=== PATIENT | female | born 1975 | race Hispanic/Latino ===

== ENCOUNTER 2016-04-02 11:05 | Emergency (ER) | payer BC, OTHER ==
--- NOTE | 2016-04-02 11:35 | Emergency Department Report ---
Chief Complaint: Chest Pain Stated Complaint: CHEST/ABD PAINS Time Seen by Provider: 04/02/16 11:30 - HPI History of Present Illness: Patient here complaining of CP that moves from left to right chest started 3 days ago. Feels tigh and 06/22. Reports some SOB. Denies N/V/D. denies fever or chills. She said she went to PCP and they did Urine check and it came back positive for UTI . She is also complaining of generalized stabbing abdominal pain. 09/21. Reports blurred vision. Denies vaginal bleeding - ROS Review of Systems: All systems are negative unless stated in HPI above - Exam Vital Signs: Vital Signs 04/02/16 11:14 Temperature 98.1 F Pulse Rate 126 H Respiratory 17 Rate Blood Pressure 136/85 O2 Sat by Pulse 98 Oximetry Physical Exam: General: This is a 61 yo female well nourished well developed and non toxic in appearance CV: S1S2. Tachycardia @126 Lungs: CTAB. NL work of breathing GI:TTP mid abdomen. Normal BS. MSE screening note: Focused history and physical exam performed. Due to findings the following was ordered:see mdm ED Medical Decision Making - Medical Decision Making MDM:1: seen by provider in triage 2: Protocol implemented for labs and/or Diagnostics 3: Patient to be seen by provider in main ED ED Disposition for MSE Condition: Stable
[2016-04-02 12:22] LABS: Hematocrit 40.1 % (30.3-42.9); Hemoglobin 13.5 gm/dl (10.1-14.3); Mean Corpuscular HGB Conc 34 % (30-34); Mean Corpuscular Hemoglobin 33 pg (28-32); Mean Corpuscular Volume 98 fl (79-97); Platelet Count 209 K/mm3 (140-440); Red Blood Count 4.08 M/mm3 (3.65-5.03); White Blood Count 7.6 K/mm3 (4.5-11.0)
[2016-04-02 12:29] LABS: Basophils % (Auto) 0.2 % (0.0-1.8); Eosinophils % (Auto) 0.4 % (0.0-4.3)
[2016-04-02] MEDS ORDERED: ZOFRAN IV ONE (12:37)
[2016-04-02] MEDS ORDERED: MORPHINE IV ONE (12:37)
[2016-04-02] MEDS ORDERED: NACL 0.9% 1000 ML 1,000 ML IV ONE (12:37)
--- NOTE | 2016-04-02 12:40 | Emergency Department Report ---
HPI - General Chief Complaint: Chest Pain Time Seen by Provider: 04/02/16 11:40 - HPI HPI: This is a 41-year-old female who presents to the emergency department with multiple complaints. The patient says that she's been dealing with nausea and vomiting for the past month. She vomits enough to where she says she vomits up green bile. She says she hasn't been only able to eat about 1-2 meals per week because of this. She reason he started seeing a new primary care doctor and saw the PA for that practice. She has been given a GI referral but has not yet seen them. She was diagnosed with a urinary tract infection this morning but was not started on any antibiotics as she was sent here for further evaluation of the rest of her complaints. Patient says that Wednesday, 3- 4 days ago, the patient began having some sharp abdominal pains. The pains occur in the epigastrium, lower abdomen, and upper pelvis. She denies any fever. Patient also complains of some generalized body aches but also recently has been having some occasional sharp chest pains. When the chest pains occur she also gets some associated shortness of breath. She denies any history of [place] , CVA, PE/DVT. Patient has a past medical history of anxiety and asthma. She tried some Advil PM to help her get some sleep at night without much relief. No recent travel or sick contacts at home. ED Past Medical Hx - Past Medical History Hx Asthma: Yes Additional medical history: pancreatisis - Social History Smoking Status: Never Smoker Substance Use Type: Alcohol - Medications Home Medications: Home Medications Medication Instructions Recorded Confirmed Last Taken Type Acetaminophen/Codeine 1 tab PO Q6H PRN #14 tab 05/21/14 Unknown Rx [Acetaminophen-Codeine #3 TAB] Ciprofloxacin HCl [Cipro] 500 mg PO Q12H #14 tab 05/21/14 Unknown Rx Fluconazole [Diflucan] 150 mg PO ONCE #1 tablet 05/21/14 Unknown Rx Ondansetron [Zofran Odt] 4 mg PO Q4H #14 tab.rapdis 04/02/16 Unknown Rx traMADol [Ultram] 50 mg PO Q6HR PRN #16 tablet 04/02/16 Unknown Rx ED Review of Systems ROS: Stated complaint: CHEST/ABD PAINS Other details as noted in HPI Comment: All other systems reviewed and negative Constitutional: denies: chills, fever Eyes: denies: eye pain, eye discharge, vision change ENT: denies: ear pain, throat pain Respiratory: shortness of breath. denies: cough Cardiovascular: chest pain. denies: palpitations, edema Gastrointestinal: abdominal pain, nausea, vomiting Genitourinary: dysuria. denies: discharge Musculoskeletal: myalgia. denies: joint swelling Skin: denies: rash, lesions Neurological: denies: headache, weakness, paresthesias Physical Exam - Physical Exam Vital Signs: Vital Signs 04/02/16 11:14 Temperature 98.1 F Pulse Rate 126 H Respiratory 17 Rate Blood Pressure 136/85 O2 Sat by Pulse 98 Oximetry Physical Exam: GENERAL: The patient is well-developed well-nourished. HEENT: Normocephalic. Atraumatic. Extraocular motions are intact. Patient has moist mucous membranes. Pupils equal reactive to light bilaterally. NECK: Supple. Trachea is midline. CHEST/LUNGS: Clear to auscultation. There is no respiratory distress noted. HEART/CARDIOVASCULAR: Regular. There is no tachycardia. There is no gallop rub or murmur. ABDOMEN: Abdomen is soft. Patient has some generalized tenderness to palpation of the abdomen. No guarding rebound tenderness. No peritoneal signs. Patient has normal bowel sounds. There is no abdominal distention. SKIN: There is no rash. There is no edema. There is no diaphoresis. NEURO: The patient is awake, alert, and oriented. The patient is cooperative. The patient has no focal neurologic deficits. The patient has normal speech. MUSCULOSKELETAL: There is no tenderness or deformity. There is no limitation range of motion. There is no evidence of acute injury. ED Course Vital Signs 04/02/16 11:14 Temperature 98.1 F Pulse Rate 126 H Respiratory 17 Rate Blood Pressure 136/85 O2 Sat by Pulse 98 Oximetry ED Medical Decision Making - Lab Data Result diagrams: 04/02/16 12:07 04/02/16 12:07 - EKG Data -: EKG Interpreted by Me EKG shows normal: sinus rhythm, axis, intervals, QRS complexes, ST-T waves ( nonspecific T waves) Rate: tachycardia (115 bpm) - EKG Data When compared to previous EKG there are: previous EKG unavailable Interpretation: nonspecific ST-T wave patricia (with tachycardia) - Radiology Data Radiology results: report reviewed, image reviewed interpreted by me: Chest x-ray did not show any acute process. Heart is normal shape and size. No effusions. No pneumothorax. No signs of pneumonia seen. Abdominal x-ray does not show any acute process. Abdominal ultrasound shows a prominent distention of the gallbladder and correlation with nuclear medicine HIDA scan including ejection fraction calculation may be useful. No suggestion of acute cholecystitis or biliary ductal obstruction is seen. There is hepatomegaly and fatty infiltration of the liver. CT of the abdomen and pelvis with IV contrast shows a fatty liver. Dilated gallbladder. Hypodensity left kidney probably cyst. Diverticulosis of the sigmoid colon. - Medical Decision Making 41-year-old female presents with a one-month history of nausea and vomiting anymore recent history of sharp abdominal pains as well as mother body aches including chest pain. Patient's labs and mostly unremarkable including negative troponins 3. Patient has a slight elevation in the direct bilirubin but normal total bilirubin. Normal LFTs and lipase. Abdominal and chest x- rays were done that did not show any acute processes. A CT of the abdomen pelvis was done that shows fatty liver and dilated gallbladder but otherwise no etiology the patient's discomfort and no acute process. No signs of acute cholecystitis. This was confirmed by ultrasound of the right upper quadrant and once again no stones or biliary ductal obstruction. Spoke with gastroenterology who agrees that the patient should follow-up with GI but can get an outpatient HIDA and does not need admission at this time. Patient was given some Zofran and pain medication and is improved. Vital signs stable throughout her ED course. Patient has a primary care doctor and a referral for gastroenterology but she will be given the referral for our chimney mechanic as well. Patient will be given pain control and nausea medication. She will return to the ER with any worsening of her symptoms any acute distress. - Differential Diagnosis cholecystitis, pancreatitis, gastritis, colitis Critical Care Time: No Critical care attestation.: If time is entered above; I have spent that time in minutes in the direct care of this critically ill patient, excluding procedure time. ED Disposition Clinical Impression: Dilated gallbladder, Fatty liver Abdominal pain Qualifiers: Abdominal location: generalized Qualified Code(s): R10.84 - Generalized abdominal pain Nausea and vomiting Qualifiers: Vomiting type: unspecified Vomiting Intractability: non-intractable Qualified Code(s): R11.2 - Nausea with vomiting, unspecified Disposition: DISCHARGED TO HOME OR SELFCARE Is pt being admited?: No Does the pt Need Aspirin: No Condition: Stable Instructions: Biliary Colic (ED), Diverticulosis (ED), Diverticulosis Diet (ED) , Abdominal Pain (ED) Additional Instructions: Please follow-up with your primary care doctor the next few days. Please follow -up with a chimney mechanic as soon as possible as well. Return to the emergency department with any worsening of your symptoms or any acute distress. You've been prescribed a medication that is sedating. Therefore this medication cannot be mixed with alcohol, or taken prior to driving, working, or being responsible for children. Prescriptions: traMADol [Ultram] 50 mg PO Q6HR PRN #16 tablet PRN Reason: Pain Ondansetron [Zofran Odt] 4 mg PO Q4H #14 tab.rapdis Referrals: PRIMARY CARE, [Primary Care Provider] - 3-5 Days MONIE PLASCENCIA MD [Staff Physician] - 3-5 Days Time of Disposition: 19:00
[2016-04-02 12:46] LABS: Anion Gap 18 mmol/L; Blood Urea Nitrogen 8 mg/dL (7-17); Calcium 9.1 mg/dL (8.4-10.2); Carbon Dioxide 26 mmol/L (22-30); Chloride 97.2 mmol/L (98-107); Glucose 106 mg/dL (65-100); Potassium 4.2 mmol/L (3.6-5.0); Sodium 137 mmol/L (137-145)
[2016-04-02 12:47] LABS: Creatine Kinase 25 units/L (30-135); Lipase 33 units/L (13-60)
[2016-04-02 12:50] LABS: Albumin 3.6 g/dL (3.9-5); Albumin/Globulin Ratio 1.2 %; Bilirubin,Direct 0.3 mg/dL (0-0.2); Bilirubin,Indirect 0.3 mg/dL; Bilirubin,Total 0.6 mg/dL (0.1-1.2); Total Protein 6.6 g/dL (6.3-8.2)
[2016-04-02 12:56] LABS: Creatine Kinase MB < 1.0 ng/mL (0.0-4.0)
[2016-04-02 13:40] LABS: Bacteria,Urine 1+ /HPF (Negative); Bilirubin,Urine NEG (Negative); Blood,Urine NEG (Negative); Ketones,Urine NEG (Negative); Leukocyte Esterase,Urine LG (Negative); Mucus,Urine FEW /HPF; Nitrite,Urine NEG (Negative); Protein,Urine <15 mg/dL mg/dL (Negative); Urobilinogen,Urine < 2.0 mg/dL (<2.0)
--- NOTE | 2016-04-02 14:43 | XRay Report ---
Abdominal series: History: Abdominal pain and chest pain. Findings: Normal cardiomediastinal silhouette. Trachea is midline. No consolidation No free intraperitoneal air. No bowel distention or wall thickening. No radiopaque calculus or abnormal calcification. Impression: Essentially negative study.
[2016-04-02] MEDS ORDERED: DILAUDID IV ONE ×2 (14:52→17:35)
--- NOTE | 2016-04-02 16:08 | Cat Scan Report ---
CT scan of abdomen and pelvis with IV contrast: History: Abdominal pain. Findings: Normal lung bases. No pleural pericardial effusion. Fatty liver. Normal spleen pancreas. Distended gallbladder. No calculi. No pericholecystic fluid. Normal adrenals. 1.4 cm circumscribed hypodensity right kidney probably cyst. No hydronephrosis. Normal bladder. No free intraperitoneal fluid. No evidence of adenopathy. Normal aorta. Normal terminal ileum. No evidence of appendicitis or diverticulitis. Diverticulosis sigmoid colon. Impression: Fatty liver. Dilated gallbladder. Hypodensity left kidney probably cysts. Diverticulosis sigmoid colon.
--- NOTE | 2016-04-02 17:30 | Ultrasound Report ---
FINAL REPORT PROCEDURE: US ABDOMEN LIMITED TECHNIQUE: Real-time sonography was performed of the right upper quadrant of the abdomen with image documentation. CPT 03440 HISTORY: abd pain COMPARISON: No prior studies are available for comparison. FINDINGS: Likely fatty infiltration is seen of the liver and liver appears enlarged. Right kidney measures 11.8 cm in length and displays no abnormalities. No evidence of cholelithiasis or acute cholecystitis is seen. Gallbladder is prominently distended. Common bile duct is normal in size. Pancreas is obscured due to bowel gas. IMPRESSION: There is prominent distention of the gallbladder and correlation with nuclear medicine HIDA scan including ejection fraction calculation may be useful. No suggestion of acute cholecystitis or biliary ductal obstruction is seen. There is a hepatomegaly and fatty infiltration of the liver.
[2016-04-02 19:29] VITALS: BP 134/84
== END 2016-04-02 19:32 | disposition home or self-care (01) ==
LOC: ED 11:05
DX: K82.8 Other specified diseases of gallbladder (principal); K76.0 Fatty (change of) liver, not elsewhere classified; R10.84 Generalized abdominal pain; R11.2 Nausea with vomiting, unspecified; J45.909 Unspecified asthma, uncomplicated; K85.90 Acute pancreatitis without necrosis or infection, unspecified
CPT/HCPCS: 36415; 74022; 74177; 76705; 80048; 80074; 81001; 82150; 82550; 82553; 83690; 84484; 84703; 85025; 85379; 93005; 93010; 96361; 96374; 96375; 96376; 99285; J1170; J2270; J2405; J7030; Q9967

== ENCOUNTER 2016-10-29 11:22 | Emergency (ER) | payer BC ==
[2016-10-29 12:05] LABS: Basophils % (Auto) 0.4 % (0.0-1.8); Eosinophils % (Auto) 0.3 % (0.0-4.3); Hematocrit 34.7 % (30.3-42.9); Hemoglobin 11.4 gm/dl (10.1-14.3); Mean Corpuscular HGB Conc 33 % (30-34); Mean Corpuscular Hemoglobin 32 pg (28-32); Mean Corpuscular Volume 98 fl (79-97); Platelet Count 278 K/mm3 (140-440); Red Blood Count 3.55 M/mm3 (3.65-5.03); Red Cell Distribution Width 14.7 % (13.2-15.2)
[2016-10-29 12:23] LABS: Alanine Aminotransferase 20 units/L (7-56); Albumin 3.4 g/dL (3.9-5); Albumin/Globulin Ratio 0.9 %; Alkaline Phosphatase 122 units/L (35-129); Blood Urea Nitrogen 6 mg/dL (7-17); Calcium 8.6 mg/dL (8.4-10.2); Carbon Dioxide 28 mmol/L (22-30); Glucose 103 mg/dL (65-100); Lipase 17 units/L (13-60); Total Protein 7.4 g/dL (6.3-8.2)
[2016-10-29 12:24] LABS: Anion Gap 16 mmol/L; Potassium 3.8 mmol/L (3.6-5.0); Sodium 138 mmol/L (137-145)
[2016-10-29 12:36] LABS: Bacteria,Urine 1+ /HPF (Negative); Bilirubin,Urine SM (Negative); Blood,Urine NEG (Negative); Ketones,Urine NEG (Negative); Leukocyte Esterase,Urine LG (Negative); Mucus,Urine 3+ /HPF; Nitrite,Urine NEG (Negative)
[2016-10-29] MEDS ORDERED: MORPHINE IV ONE ×2 (12:49→15:20)
[2016-10-29] MEDS ORDERED: ROCEPHIN/NS 1 GM/50 ML 1 GM/50 ML BAG IV ONE (12:50)
[2016-10-29] MEDS ORDERED: ZOFRAN IV ONE (12:50)
[2016-10-29] MEDS ORDERED: NACL 0.9% 1000 ML 1,000 ML IV ONE (13:02)
--- NOTE | 2016-10-29 13:02 | Emergency Department Report ---
HPI - General Chief Complaint: Abdominal Pain Time Seen by Provider: 10/29/16 12:24 - HPI HPI: 41-year-old female presents to the emergency department, sent in by the nurse practitioner of her primary care office, with the complaint of abdominal pain, nausea and vomiting. The patient has been having right upper quadrant and right upper flank pain for the past 2-3 days. More recently over the past day or so she has been having lower abdominal discomfort. She has chronic issues with diarrhea, nausea and vomiting but says that this worsened this morning and she is out of the Zofran she usually has to take. Otherwise she has not taken anything for discomfort. She doesn't history of pancreatitis and asthma. Primary care physician is Dr. Herron. No recent travel or sick contacts at home. She does also feel like she might have a urinary tract infection as she has some dysuria but she denies any vaginal discharge or bleeding. ED Past Medical Hx - Past Medical History Previous Medical History?: Yes Hx Asthma: Yes (occasional inhaler use ) Additional medical history: pancreatisis - Social History Smoking Status: Never Smoker Substance Use Type: Alcohol - Medications Home Medications: Home Medications Medication Instructions Recorded Confirmed Last Taken Type Omeprazole 20 mg PO DAILY 04/21/16 04/29/16 04/28/16 History Sertraline 1 tab PO DAILY 04/21/16 04/29/16 04/29/16 History clonazePAM 1 tab PO DAILY 04/21/16 04/29/16 04/29/16 History Ciprofloxacin HCl [Ciprofloxacin 500 mg PO Q12HR #20 tab 10/29/16 Unknown Rx TAB] Fluconazole [Diflucan TAB] 150 mg PO ONCE #1 tablet 10/29/16 Unknown Rx HYDROcodone/APAP 5-325 [Winifred 1 each PO Q6HR PRN #10 tablet 10/29/16 Unknown Rx 5/325] Ondansetron [Zofran Odt] 4 mg PO Q8H PRN #10 tab.rapdis 10/29/16 Unknown Rx traMADol [Ultram] 50 mg PO Q6HR PRN #10 tablet 10/29/16 Unknown Rx ED Review of Systems ROS: Stated complaint: APPENDICITIS Other details as noted in HPI Comment: All other systems reviewed and negative Constitutional: denies: chills, fever Eyes: denies: eye pain, eye discharge, vision change ENT: denies: ear pain, throat pain Respiratory: denies: cough, shortness of breath, wheezing Cardiovascular: denies: chest pain, palpitations Gastrointestinal: abdominal pain, nausea, vomiting Genitourinary: dysuria. denies: discharge Musculoskeletal: denies: back pain, joint swelling, arthralgia Skin: denies: rash, lesions Neurological: denies: headache, weakness, paresthesias Physical Exam - Physical Exam Vital Signs: Vital Signs 10/29/16 10/29/16 11:39 12:17 Temperature 99.5 F Pulse Rate 123 H Respiratory 18 18 Rate Blood Pressure 130/85 O2 Sat by Pulse 100 98 Oximetry Physical Exam: GENERAL: The patient is well-developed well-nourished. ENT: Normocephalic. Atraumatic. Patient has moist mucous membranes. EYES: Extraocular motions are intact. Pupils equal reactive to light bilaterally. No nystagmus. NECK: Supple. Trachea is mid line. CHEST/LUNGS: Clear to auscultation. There is no respiratory distress noted. HEART/CARDIOVASCULAR: Regular rhythm. Mild tachycardia. There is no gallop rub or murmur. ABDOMEN: Abdomen is soft. There is some tenderness palpation to the right upper quadrant as well as the lower quadrants of the abdomen. There is a fullness that is palpable to the right upper flank. Patient has normal bowel sounds. There is no abdominal distention. SKIN: Skin is warm and dry. NEURO: The patient is awake, alert, and oriented. The patient is cooperative. The patient has no sensory or motor deficits. The patient has normal speech and gait. MUSCULOSKELETAL: There is no tenderness or deformity. There is no limitation range of motion. There is no evidence of acute injury. ED Course Vital Signs 10/29/16 10/29/16 11:39 12:17 Temperature 99.5 F Pulse Rate 123 H Respiratory 18 18 Rate Blood Pressure 130/85 O2 Sat by Pulse 100 98 Oximetry ED Medical Decision Making - Lab Data Result diagrams: 10/29/16 11:50 10/29/16 11:50 - Radiology Data Radiology results: report reviewed, image reviewed interpreted by me: X-ray shows nonspecific nonobstructive bowel gas. no acute processes. Abdominal ultrasound shows fatty markedly enlarged liver and prominent distended gallbladder again noted. CT of the abdomen and pelvis with IV contrast shows descending colon diverticulitis. Fatty infiltration of the liver that appears improved from . - Medical Decision Making 41-year-old female presents to the emergency department with some right upper quadrant and lower quadrant abdominal pain as well as nausea and vomiting. Labs show some mild elevation in the total bilirubin and in transaminase. Abdominal x-ray does not show any acute process. She was given some pain medication and nausea medication and there has not been any further vomiting while in the emergency department. Her pain is improved. CT of the abdomen and pelvis shows some descending diverticulitis. Labs show a urinary tract infection. Ultrasound shows some hepatomegaly and distended gallbladder. There is no leukocytosis and there is no fever and patient appears improved. For this reason I believe the diverticulitis can be treated outpatient and the antibiotics for that can also treat the urinary tract infection. While the patient has enlarged gallbladder and liver, there does not appear to be any significant process going on that would require inpatient admission. She was given a referral for gastroenterology and at her request she was given a neurology referral. She was given pain medication and nausea medication. She will return to the ER with any worsening of her symptoms or any acute distress. - Differential Diagnosis diverticulitis, colitis, cholecystitis, cholelithiasis, hepatomegaly, hepat Critical Care Time: No Critical care attestation.: If time is entered above; I have spent that time in minutes in the direct care of this critically ill patient, excluding procedure time. ED Disposition Clinical Impression: Dilated gallbladder, Fatty liver Abdominal pain Qualifiers: Abdominal location: generalized Qualified Code(s): R10.84 - Generalized abdominal pain Diverticulitis large intestine Qualifiers: Diverticulitis bleeding: without bleeding Diverticulitis complication: without perforation or abscess Qualified Code(s): K57.32 - Diverticulitis of large intestine without perforation or abscess without bleeding Disposition: -01 TO HOME OR SELFCARE Is pt being admited?: No Condition: Stable Instructions: Diverticulitis (ED), Urinary Tract Infection in Women (ED), Acute Nausea and Vomiting (ED), Non-Alcoholic Fatty Liver Disease (ED), Diverticulitis Diet (ED), Abdominal Pain (ED) Additional Instructions: I'll put your primary care doctor in the next few days. I have given you a referral for a local machine stemmer, Dr. Zazueta. Return to the emergency Department with any worsening of her symptoms or any acute distress. You have been prescribed a medication that can be sedating. This medication should not be taken prior to driving, working, being responsible for children and should not be mixed with alcohol. Prescriptions: Ciprofloxacin HCl [Ciprofloxacin TAB] 500 mg PO Q12HR #20 tab Fluconazole [Diflucan TAB] 150 mg PO ONCE #1 tablet HYDROcodone/APAP 5-325 [Winifred 5/325] 1 each PO Q6HR PRN #10 tablet PRN Reason: Pain Ondansetron [Zofran Odt] 4 mg PO Q8H PRN #10 tab.rapdis PRN Reason: Nausea traMADol [Ultram] 50 mg PO Q6HR PRN #10 tablet PRN Reason: Pain Referrals: PRIMARY CARE, [Primary Care Provider] - 3-5 Days EULOGIO ZAZUETA MD [Staff Physician] - 3-5 Days JOSIE HUERTA MD [Staff Physician] - 3-5 Days Time of Disposition: 16:54
--- NOTE | 2016-10-29 13:59 | Cat Scan Report ---
CT SCAN OF THE ABDOMEN AND PELVIS WITH CONTRAST: HISTORY: Abdominal pain. TECHNIQUE: Helical CT in 1.25mm intervals following IV contrast. Sagittal and coronal reconstructions. FINDINGS: The liver is normal in size and is without focal defect. Fatty infiltration of the liver has decreased slightly since 04/02/16. No gallstones or biliary dilatation are noted. The spleen and pancreas demonstrate a normal size and attenuation with no evidence of abnormal mass. The kidneys are normal in size and position with no evidence of hydronephrosis or mass. The adrenal glands are normal. There are scattered diverticula in the descending and sigmoid colon. Focal inflammatory changes are identified in the distal descending colons consistent with acute diverticulitis. There is no evidence for abscess or free air. The appendix is not confidently identified. The uterus and adnexa are within normal limits. Essure devices are in place. There is no evidence of peritoneal air or fluid. There is no evidence of any abnormal masses or fluid collections within the pelvis. No adenopathy is identified. The bladder is normal. IMPRESSION: Descending colon diverticulitis. Fatty infiltration of the liver, improved since 04/02/16.
--- NOTE | 2016-10-29 14:17 | XRay Report ---
ABDOMEN RADIOGRAPHS INDICATION: Abdominal pain. COMPARISON: 04/02/2016 FINDINGS: Frontal supine and upright abdominal radiographs again demonstrate overall nonobstructive bowel gas pattern without focal suspicious calcifications, pneumatosis or pneumoperitoneum. An air-containing small bowel loop in the left mid abdomen approximately 2.7 cm caliber, nonspecific. Severe hepatomegaly possible. Mild levoscoliosis apex about L2. Essure devices again noted, 3 in number overlying the sacrum. CONCLUSION: Stable essure devices and possible extensive hepatomegaly without evidence of bowel obstruction, as described. Please correlate. Thank you for the opportunity to participate in this patient's care.
--- NOTE | 2016-10-29 15:51 | Ultrasound Report ---
ULTRASOUND ABDOMEN LIMITED INDICATION: RUQ abdominal pain. COMPARISON: CT from earlier today and 04/02/2016 RUQ ultrasound. FINDINGS: Right upper quadrant sonography limited due to patient's body habitus, though again demonstrates diffusely echogenic liver without definite biliary dilatation. Right hepatic lobe estimated at 25 cm in midclavicular length. No gallstones or pericholecystic fluid. Gallbladder distended to approximately 14.2 cm in length, previously 11 cm in March 2016. Gallbladder wall thickness is 2.3 mm. Common bile duct is 3.8 mm. Imaged pancreas unremarkable, though its head and tail obscured due to bowel gas. Aorta and IVC visualization also limited. Nonhydronephrotic right kidney, approximately 13 x 5.8 x 5.7 cm with cortical thickness of 1.5 cm. CONCLUSION: Fatty, markedly enlarged liver and prominent/distended gallbladder again noted, as described. Please correlate. Thank you for the opportunity to participate in this patient's care.
[2016-10-29 16:54] VITALS: BP 106/68
== END 2016-10-29 17:17 | disposition home or self-care (01) ==
LOC: ED 11:22
DX: K82.8 Other specified diseases of gallbladder (principal); K76.0 Fatty (change of) liver, not elsewhere classified; K57.32 Diverticulitis of large intestine without perforation or abscess without bleeding; J45.909 Unspecified asthma, uncomplicated
CPT/HCPCS: 36415; 74020; 74177; 76705; 80053; 81001; 83690; 84703; 85025; 96365; 96375; 96376; 99284; J0696; J2270; J2405; J7030; Q9967

== ENCOUNTER 2017-05-13 03:41 | Emergency (ER) | payer BC ==
[2017-05-13] MEDS ORDERED: NACL 0.9% 1000 ML 1,000 ML IV ONE (04:41)
[2017-05-13] MEDS ORDERED: MORPHINE IV ONE (04:41)
[2017-05-13] MEDS ORDERED: ZOFRAN IV ONE (04:41)
--- NOTE | 2017-05-13 04:51 | Emergency Department Report ---
ED Abdominal Pain HPI - General Chief Complaint: Abdominal Pain Stated Complaint: ABD PAIN Time Seen by Provider: 05/13/17 04:41 Source: patient Mode of arrival: Ambulatory Limitations: No Limitations - History of Present Illness Initial Comments: Patient is 42 years old female history of asthma and diverticulitis. Patient presented to the ER with right lower quadrant and suprapubic pain started yesterday with bloody diarrhea. Pain associated his nausea but no vomiting. Patient denied any fever. No urinary frequency or dysuria MD Complaint: abdominal pain -: Last night Location: RLQ, suprapubic Radiation: none Migration to: no migration Severity scale (0 -10): 9 Quality: sharp, dull Consistency: constant Improves With: nothing Worsens With: nothing Associated Symptoms: nausea, hematochezia. denies: vomiting, diarrhea, fever - Related Data Home Medications Medication Instructions Recorded Confirmed Last Taken Omeprazole 20 mg PO DAILY 04/21/16 04/29/16 04/28/16 Sertraline 1 tab PO DAILY 04/21/16 04/29/16 04/29/16 clonazePAM 1 tab PO DAILY 04/21/16 04/29/16 04/29/16 Previous Rx's Medication Instructions Recorded Last Taken Type Ciprofloxacin HCl [Ciprofloxacin 500 mg PO Q12HR #20 tab 10/29/16 Unknown Rx TAB] Fluconazole [Diflucan TAB] 150 mg PO ONCE #1 tablet 10/29/16 Unknown Rx HYDROcodone/APAP 5-325 [[place] 1 each PO Q6HR PRN #10 tablet 10/29/16 Unknown Rx 5/325] Ondansetron [Zofran Odt] 4 mg PO Q8H PRN #10 tab.rapdis 10/29/16 Unknown Rx traMADol [Ultram] 50 mg PO Q6HR PRN #10 tablet 10/29/16 Unknown Rx HYDROcodone/APAP 5-325 [[place] 1 - 2 each PO Q6HR PRN #10 tablet 05/13/17 Unknown Rx 5/325] Allergies Allergy/AdvReac Type Severity Reaction Status Date / Time No Known Allergies Allergy Verified 10/29/16 11:39 ED Review of Systems ROS: Stated complaint: ABD PAIN Other details as noted in HPI Comment: All other systems reviewed and negative Constitutional: denies: chills, fever Respiratory: denies: cough, orthopnea, shortness of breath, SOB with exertion Cardiovascular: denies: chest pain, palpitations, dyspnea on exertion Gastrointestinal: abdominal pain, nausea, diarrhea, hematochezia. denies: vomiting, constipation, hematemesis, melena Genitourinary: denies: urgency, dysuria, frequency, hematuria Neurological: denies: headache, weakness, numbness, paresthesias ED Past Medical Hx - Past Medical History Previous Medical History?: Yes Hx Asthma: Yes (occasional inhaler use ) Additional medical history: pancreatisis - Surgical History Past Surgical History?: No - Social History Smoking Status: Never Smoker Substance Use Type: None - Medications Home Medications: Home Medications Medication Instructions Recorded Confirmed Last Taken Type Omeprazole 20 mg PO DAILY 04/21/16 04/29/16 04/28/16 History Sertraline 1 tab PO DAILY 04/21/16 04/29/16 04/29/16 History clonazePAM 1 tab PO DAILY 04/21/16 04/29/16 04/29/16 History Ciprofloxacin HCl [Ciprofloxacin 500 mg PO Q12HR #20 tab 10/29/16 Unknown Rx TAB] Fluconazole [Diflucan TAB] 150 mg PO ONCE #1 tablet 10/29/16 Unknown Rx HYDROcodone/APAP 5-325 [[place] 1 each PO Q6HR PRN #10 tablet 10/29/16 Unknown Rx 5/325] Ondansetron [Zofran Odt] 4 mg PO Q8H PRN #10 tab.rapdis 10/29/16 Unknown Rx traMADol [Ultram] 50 mg PO Q6HR PRN #10 tablet 10/29/16 Unknown Rx HYDROcodone/APAP 5-325 [[place] 1 - 2 each PO Q6HR PRN #10 tablet 05/13/17 Unknown Rx 5/325] ED Physical Exam - General Limitations: No Limitations General appearance: alert, in no apparent distress - Head Head exam: Present: atraumatic, normocephalic - Eye Eye exam: Present: normal appearance, PERRL - ENT ENT exam: Present: normal exam, normal orophraynx, mucous membranes dry - Neck Neck exam: Present: normal inspection, full ROM. Absent: tenderness, meningismus - Respiratory Respiratory exam: Present: normal lung sounds bilaterally. Absent: respiratory distress, wheezes, rales, rhonchi, stridor, chest wall tenderness, accessory muscle use, decreased breath sounds, prolonged expiratory - Cardiovascular Cardiovascular Exam: Present: tachycardia - GI/Abdominal GI/Abdominal exam: Present: soft, tenderness. Absent: distended, guarding, rebound, rigid, normal bowel sounds, organomegaly, mass, bruit, pulsatile mass, hernia - Extremities Exam Extremities exam: Present: normal inspection, full ROM, normal capillary refill - Back Exam Back exam: Present: normal inspection, full ROM. Absent: tenderness, CVA tenderness (R), CVA tenderness (L) - Neurological Exam Neurological exam: Present: alert, oriented X3, CN II-XII intact, normal gait - Skin Skin exam: Present: warm, intact, normal color. Absent: cyanosis, diaphoretic ED Course Vital Signs 05/13/17 05/13/17 05/13/17 03:48 04:10 05:00 Temperature 98.2 F 99 F Pulse Rate 114 H 108 H Respiratory 18 20 Rate Blood Pressure 114/69 122/76 Blood Pressure 125/79 [Left] O2 Sat by Pulse 95 97 98 Oximetry 05/13/17 07:16 Temperature 98.6 F Pulse Rate 96 H Respiratory 18 Rate Blood Pressure Blood Pressure 114/67 [Left] O2 Sat by Pulse 99 Oximetry - Reevaluation(s) Reevaluation #1: 05/13/17 06:05 PATIENT CARE TRANSFER TO DR AU PENDING CT ABDOMEN AND PELVIS. ED Medical Decision Making - Lab Data Result diagrams: 05/13/17 04:58 05/13/17 04:58 Critical care attestation.: If time is entered above; I have spent that time in minutes in the direct care of this critically ill patient, excluding procedure time. ED Disposition Clinical Impression: Abdominal pain Disposition: - TO HOME OR SELFCARE Is pt being admited?: No Condition: Stable Instructions: Abdominal Pain (ED) Prescriptions: HYDROcodone/APAP 5-325 [[place] 5/325] 1 - 2 each PO Q6HR PRN #10 tablet PRN Reason: Pain Referrals: JUAN LUIS MEADE MD [Staff Physician] - [facility] (It is important that you follow -up with your mathematician research for further evaluation of your liver. ) PRIMARY CARE, [Referring] - 3-5 Days
[2017-05-13 05:11] LABS: Basophils # (Auto) 0.1 K/mm3 (0.0-0.1); Basophils % (Auto) 0.6 % (0.0-1.8); Eosinophils # (Auto) 0.2 K/mm3 (0.0-0.4); Eosinophils % (Auto) 1.8 % (0.0-4.3); Hematocrit 34.2 % (30.3-42.9); Hemoglobin 11.6 gm/dl (10.1-14.3); Lymphocytes # (Auto) 1.5 K/mm3 (1.2-5.4); Lymphocytes % (Auto) 16.1 % (13.4-35.0); Mean Corpuscular HGB Conc 34 % (30-34); Mean Corpuscular Hemoglobin 35 pg (28-32); Mean Corpuscular Volume 103 fl (79-97); Monocytes # (Auto) 0.6 K/mm3 (0.0-0.8); Monocytes % (Auto) 6.7 % (0.0-7.3); Platelet Count 221 K/mm3 (140-440); Red Blood Count 3.33 M/mm3 (3.65-5.03); Red Cell Distribution Width 17.2 % (13.2-15.2)
[2017-05-13 05:21] LABS: INR 1.26 (0.87-1.13)
[2017-05-13 06:13] LABS: Alanine Aminotransferase 33 units/L (7-56); Albumin 3.2 g/dL (3.9-5); BUN/Creatinine Ratio 5; Blood Urea Nitrogen 2 mg/dL (7-17); Calcium 8.6 mg/dL (8.4-10.2); Hemolysis Index 24
[2017-05-13] MEDS ORDERED: NACL ONE (06:13)
[2017-05-13 06:39] LABS: Bilirubin,Urine NEG (Negative); Blood,Urine SM (Negative); Color,Urine Yellow (Yellow); Mucus,Urine FEW /HPF; Protein,Urine <15 mg/dL mg/dL (Negative)
[2017-05-13 07:17] VITALS: BP 114/67
--- NOTE | 2017-05-13 07:18 | Cat Scan Report ---
FINAL REPORT EXAM: CT ABDOMEN PELVIS W CON HISTORY: abdominal pain TECHNIQUE: Routine axial imaging was obtained of the abdomen and pelvis following the intravenous injection of 100 cc of Omnipaque 300. Sagittal and coronal reconstructions were reviewed. Comparison is made to the study of 10/29/2016. FINDINGS: The lung bases do not show any infiltrates or effusions. The liver is enlarged and reveals multiple low-attenuation areas in both hepatic lobes, particularly in the caudate lobe. Overall findings are compatible with hepatic steatosis. This has improved somewhat since prior study. Because of the nodule distribution occult lesions still cannot be excluded. The gallbladder is distended. Stones are not seen. There are no secondary signs of acute cholecystitis. The pancreas, spleen, and adrenal glands appear normal. The kidneys enhance normally. The vascular structures enhance normally also. There is no evidence of free fluid or adenopathy. The bowel loops are normal in caliber. There are multiple uncomplicated diverticula within the colon. The appendix is not seen with certainty. The uterus and bladder appear normal. There are bilateral Essure devices in the adnexa. The skeletal structures do not show any acute changes. IMPRESSION: Hepatomegaly with changes liver compatible with hepatic steatosis which has shown slight improvement since previous study. Given the nodular appearance of the distribution of the fatty deposits, MRI of liver is recommended to definite exclude occult lesions such as metastases. Distended gallbladder. No secondary signs of acute cholecystitis. Uncomplicated colonic diverticulosis.
[2017-05-13] MEDS ORDERED: SUBLIMAZE IV ONE ×2 (08:32→09:00)
--- NOTE | 2017-05-13 08:36 | Ultrasound Report ---
ULTRASOUND ABDOMEN LIMITED INDICATION: Abdominal pain. COMPARISON: CT from earlier today and October 2016 imaging. FINDINGS: Right upper quadrant sonography again demonstrates diffuse increased hepatic echogenicity, though patchy at places, similar to the CT appearance. Right hepatic lobe appears enlarged, estimated at 27 cm craniocaudal on accompanying CT. No biliary dilatation. Gallbladder distended to approximately 14.3 cm in length. Slight gallbladder sludge versus technical artifact. No gallstones or pericholecystic fluid. Gallbladder wall thickness is 2.5 mm. Common bile duct is 4.2 mm. Imaged pancreas, nonaneurysmal abdominal aorta and IVC appear within normal limits. Nonhydronephrotic, 13.1 x 5.1 x 5.7 cm right kidney with cortical thickness of 1 cm. CONCLUSION: 1. Diffusely echogenic, heterogeneous, markedly enlarged liver may again represent patchy fatty hepatic infiltration, felt improving/resolving since prior CT exams. Please also correlate clinically as also to exclude other possible infiltrative processes. 2. Distended gallbladder without sonographic evidence of acute cholecystitis. Thank you for the opportunity to participate in this patient's care.
== END 2017-05-13 09:17 | disposition home or self-care (01) ==
LOC: EEVIPCON 03:41 → ED 03:41
DX: R10.31 Right lower quadrant pain (principal)
CPT/HCPCS: 36415; 74177; 76705; 80053; 81001; 83690; 84703; 85025; 85610; 96361; 96374; 96375; 99284; J2270; J2405; J3010; J7030; Q9967

== ENCOUNTER 2017-06-02 10:57 | Day surgery (SDC) | payer BC ==
[2017-06-02] MEDS ORDERED: NACL 0.9% 1000 ML 1,000 ML IV SCH (12:00)
[2017-06-02] MEDS ORDERED: WATER FOR IRRIG STERILE IR ONE (12:49)
[2017-06-02] MEDS ORDERED: DIPRIVAN 10 MG/ML IV ONE ×2 (13:13)
--- NOTE | 2017-06-02 13:23 | Anesthesia Day of Surgery ---
Anesthesia Day of Surgery - Day of Surgery Patient Examined: Yes Patient H&P Reviewed: Yes Patient is NPO: Yes
--- NOTE | 2017-06-02 13:23 | Anesthesia Consultation ---
Anesthesia Consult and Med Hx Date of service: 06/02/17 - Airway Anesthetic Teeth Evaluation: Good ROM Head & Neck: Adequate Mental/Hyoid Distance: Adequate Mallampati Class: Class III Intubation Access Assessment: Possibly Difficult - Pulmonary Exam CTA: Yes - Cardiac Exam Cardiac Exam: RRR - Pre-Operative Health Status ASA Pre-Surgery Classification: ASA2 Proposed Anesthetic Plan: MAC - Pre-Anesthesia Comment Pre-Anesthesia Comments: neuropathy - Pulmonary Hx Asthma: Yes - Gastrointestinal Hx Gastroesophageal Reflux Disease: Yes (well controlled ) - Other Systems Hx Alcohol Use: Yes (occasional )
--- NOTE | 2017-06-02 13:25 | History and Physical Report ---
History of Present Illness Date of examination: 06/02/17 Date of admission: 06/02/2017 Chief complaint: Abdominal Pain History of present illness: The patient is a 42 yo female being worked up for abdominal pain and diarrhea by Dr Stewart (see H/P from 02/2017 scanned in the [facility]). She has already had a colonoscopy, but not an EGD in over 2 years. There is no prior hx of PUD, severe dysphagia, hematemesis, or abnormal loss of weight. Past History Past Medical History: other (obesity, colon polyp) Past Surgical History: denies: bowel surgery Social history: . denies: alcohol abuse, prescription drug abuse Family history: denies: no significant family history Medications and Allergies Allergies Allergy/AdvReac Type Severity Reaction Status Date / Time No Known Allergies Allergy Verified 10/29/16 11:39 Home Medications Medication Instructions Recorded Confirmed Last Taken Type Lyrica 100 mg PO TID 06/02/17 06/02/17 06/01/17 History Active Meds: Active Medications Sodium Chloride (Nacl 0.9% 1000 Ml) 1,000 mls @ 50 mls/hr IV DIRECT SUE Last Admin: 06/02/17 11:58 Dose: 50 mls/hr I have reviewed and reconciled medications. Review of Systems All systems: negative (as noted in the HPI) Exam - Constitutional Vitals: Temp Pulse Resp BP Pulse Ox 98.1 F 115 H 18 142/92 98 06/02/17 11:39 06/02/17 11:39 06/02/17 11:39 06/02/17 11:39 06/02/17 11:39 General appearance: Present: no acute distress - EENT Eyes: Present: PERRL, EOM intact ENT: hearing intact, clear oral mucosa - Respiratory Respiratory effort: normal Respiratory: bilateral: CTA - Cardiovascular Rhythm: regular Heart Sounds: Present: S1 & S2 - Abdominal General gastrointestinal: Present: soft, non-tender, non-distended Assessment and Plan - Patient Problems (1) Generalized abdominal pain Current Visit: Yes Status: Acute Plan to address problem: - Upper endoscopy as part of workup of abdominal pain, history of N/V, and diarrhea.
--- NOTE | 2017-06-02 13:37 | Post Operative Note ---
Pre-op diagnosis: Abdominal Pain Post-op diagnosis: other (Gastritis, small hh, ?GV) Findings: 1. Normal duodenum, biopsy for sprue 2. Mild gastritis, biopsy of antrum 3. Prominant vessels in fundus (?gastric varices) 4. Small HH 5. Normal esophagus Procedure: EGD with cold biopsy Anesthesia: MAC Surgeon: BENJAMIN CASTILLO Estimated blood loss: minimal Pathology: list (1. Random duodenum/rule out sprue. 2. Gastric antrum, gastritis.) Specimen disposition: to lab Condition: stable Disposition: same day (Recs: 1. Resume normal diet and activities, except no driving today. 2. F/U with Dr Stewart in 2-4 weeks (call for appointment). 3. F/ U pathology in clinic.)
--- NOTE | 2017-06-02 13:43 | Short Stay Summary ---
Short Stay Documentation Date of service: 06/02/17 Narrative H&P: The patient underwent an uncomplicated outpatient upper endoscopy for abdominal pain and a history of N/V/diarrhea. She did well with normal vital signs. She was discharged 30 minutes after the procedure in good condition. - History Principal diagnosis: Generalized abdominal pain H&P: obtained from office Past Medical History: other (obesity, colon polyp) Past Surgical History: no bowel surgery Social history: , no alcohol abuse, no prescription drug abuse - Allergies and Medications Current Medications: Allergies No Known Allergies Allergy (Verified 10/29/16 11:39) Home Medications Medication Instructions Recorded Confirmed Last Taken Type Lyrica 100 mg PO TID 06/02/17 06/02/17 06/01/17 History Active Medications Sodium Chloride (Nacl 0.9% 1000 Ml) 1,000 mls @ 50 mls/hr IV DIRECT SUE Last Admin: 06/02/17 11:58 Dose: 50 mls/hr - Physical exam General appearance: no acute distress, obese Lungs: Clear to auscultation Heart: Regular rate, Normal S1, Normal S2 Gastrointestinal: normal, normoactive bowel sounds - Brief post op/procedure progress note Date of procedure: 06/02/17 Pre-op diagnosis: Generalized abdominal pain Post-op diagnosis: other (gastritis, HH, possible gastric varices) Procedure: EGD with cold biopsy Anesthesia: MAC Findings: 1. As per the dictated report (gastritis, HH, possible varices) Surgeon: BENJAMIN CASTILLO Estimated blood loss: minimal Pathology: list (1. Random duodenum. 2. Gastric antrum.) Specimen disposition: to lab Condition: stable - Hospital course Hospital course: The patient was d/c 30 minutes after the EGD per endoscopy protocol. No adverse events during or after the procedure noted. - Disposition Condition at discharge: Stable Disposition: DC-01 TO HOME OR SELFCARE - Discharge Diagnoses (1) Generalized abdominal pain Status: Chronic Short Stay Discharge Plan Activity: no restrictions (Except no operating a vehicle/heavy machinery today) Weight Bearing Status: Full Weight Bearing Diet: regular Follow up with: JUAN LUIS MEADE MD [Staff Physician] - 6 Weeks HOANG DIAMOND MD [Primary Care Provider] - 6 Weeks
[2017-06-02 13:59] VITALS: BP 134/89
--- NOTE | 2017-06-02 14:55 | Post Anesthesia Evaluation ---
- Post Anesthesia Evaluation Patient Participated: Yes Airway Patent: Yes Stable Respiratory Function: Yes Nausea/Vomiting: No Temp > 96.8F: Yes Pain Manageable: Yes Adequeate Hydration: Yes Anesthesia Complications: No
--- NOTE | 2017-06-02 15:18 | Operative Report ---
PROCEDURE PERFORMED: Esophagogastroduodenoscopy with cold biopsy. PREOPERATIVE DIAGNOSES: Generalized abdominal pain and a history of nausea and vomiting. POSTOPERATIVE DIAGNOSES: Gastritis, possible gastric varices, hiatal hernia. ENDOSCOPIST: Delonte Solitario MD INSTRUMENT: [employer] video endoscope. MEDICATIONS: MAC anesthesia by [facility]. COMPLICATIONS: No apparent complications. ESTIMATED BLOOD LOSS: Minimal. SPECIMENS: 1. Random duodenum. 2. Gastric antrum. IMPLANTS: None. ASSISTANTS: None. CONDITION AT COMPLETION: Stable. TECHNIQUE: The patient was informed of the risks and benefits of the procedure. She signed the informed consent to proceed. She was placed in left lateral decubitus position. The above sedative medications were given. Her vital signs remained stable throughout the procedure. The instrument was advanced from the mouth to the second portion of the duodenum under direct visualization. At that point, the bowel was insufflated and the endoscope was slowly withdrawn. FINDINGS: 1. Normal duodenum, but biopsy taken for sprue given the patient's chronic diarrhea and abdominal pain. 2. Mild gastritis characterized by erythema and erosions in the antrum of the stomach, status post cold biopsy. 3. There was a prominent cluster of vessels in the fundus, which could suggest mild gastric varices, but there was no evidence of esophageal varices and the patient has no history of splenic or pancreatic injury. 4. Small hiatal hernia. 5. Normal esophagus. RECOMMENDATIONS: 1. Resume normal diet and activities except for no driving today. 2. Follow up in clinic with Dr. Stewart in 2-4 weeks, the patient to call for an appointment. 3. Follow up pathology in the clinic. JOB# [id number] ALEXX/NTS
== END 2017-06-02 10:58 | disposition home or self-care (01) ==
LOC: GIO 10:57
PROVIDERS: ATTEND Internal Medicine Gastroenterology
DX: K29.50 Unspecified chronic gastritis without bleeding (principal); K44.9 Diaphragmatic hernia without obstruction or gangrene; K21.9 Gastro-esophageal reflux disease without esophagitis; J45.909 Unspecified asthma, uncomplicated
CPT/HCPCS: 43239; 81025; 88305; 88342; J2704; J7030

== ENCOUNTER 2017-07-12 08:37 | Emergency (ER) | payer BC ==
[2017-07-12] MEDS ORDERED: ALUM-MAG HYDROX-SIMETH 200-200-20MG/5ML PO ONE (09:20)
[2017-07-12] MEDS ORDERED: PEPCID PO ONE (09:20)
[2017-07-12] MEDS ORDERED: ZOFRAN ODT PO ONE (09:20)
[2017-07-12] MEDS ORDERED: BENTYL PO NR (09:20)
[2017-07-12] MEDS ORDERED: CARAFATE PO ONE (09:20)
--- NOTE | 2017-07-12 09:21 | Emergency Department Report ---
ED GI Bleed HPI - General Chief complaint: Abdominal Pain Stated complaint: ABDOMINAL PAIN Time Seen by Provider: 07/12/17 09:04 Source: patient, RN notes reviewed, old records reviewed Mode of arrival: Ambulatory Limitations: No Limitations - History of Present Illness Initial comments: This is a 42-year-old female who is previously known to this provider. Past medical history includes alcohol abuse, multiple recent endoscopies demonstrating portal gastropathy, gastric varices, recently had MRI for her abdomen as per recommendation of gastroenterology. Patient presents to the ER with a complaint of right-sided abdominal pain. It has been present for 8 months. It is sharp and achy. It does not radiate anywhere. It decreases with morphine. Patient denies headache, neck pain, chest pain, homicidality, suicidality. She does report some dysuria. She also has a complaint of intermittent rectal bleeding. She thinks that she may have Crohn's disease. Her symptoms do not have exacerbating or relieving factors. MD complaint: blood on toilet paper -: Gradual Location: RUQ, R flank Radiation: none Quality: cramping Consistency: intermittent Improves with: other Worsens with: other Context: history of GI bleed, liver disease, alcohol abuse, known esophageal varices Associated Symptoms: abdominal pain. denies: nausea, vomiting, epistaxis, fever /chills, headaches, loss of appetite, malaise, easy bruising, rash, shortness of breath, syncope, weakness - Related Data Previous Rx's Medication Instructions Recorded Last Taken Type ALPRAZolam [Xanax TAB] 0.5 mg PO TID PRN #20 tablet 07/08/17 Unknown Rx Multivitamin Tab W-MINERAL 1 each PO QDAY #30 tablet 07/08/17 Unknown Rx [Multiple Vitamin/Mineral (Theragran M)] Pantoprazole [Protonix TAB] 40 mg PO QDAY #30 tablet 07/08/17 Unknown Rx Pregabalin [Lyrica] 25 mg PO TID #20 capsule 07/08/17 Unknown Rx Pregabalin [Lyrica] 75 mg PO TID #20 capsule 07/08/17 Unknown Rx QUEtiapine [SEROquel] 25 mg PO DAILY #30 07/08/17 Unknown Rx Zolpidem [Ambien] 5 mg PO QHS PRN #10 tablet 07/08/17 Unknown Rx Allergies Allergy/AdvReac Type Severity Reaction Status Date / Time No Known Allergies Allergy Verified 10/29/16 11:39 ED Review of Systems ROS: Stated complaint: ABDOMINAL PAIN Other details as noted in HPI Comment: All other systems reviewed and negative ED Past Medical Hx - Past Medical History Hx Asthma: Yes Hx HIV: No Additional medical history: pancreatisis. neuropathy. diverticulits. anemia. chrons - Surgical History Past Surgical History?: No - Social History Smoking Status: Former Smoker Substance Use Type: None - Medications Home Medications: Home Medications Medication Instructions Recorded Confirmed Last Taken Type ALPRAZolam [Xanax TAB] 0.5 mg PO TID PRN #20 tablet 07/08/17 Unknown Rx Multivitamin Tab W-MINERAL 1 each PO QDAY #30 tablet 07/08/17 Unknown Rx [Multiple Vitamin/Mineral (Theragran M)] Pantoprazole [Protonix TAB] 40 mg PO QDAY #30 tablet 07/08/17 Unknown Rx Pregabalin [Lyrica] 25 mg PO TID #20 capsule 07/08/17 Unknown Rx Pregabalin [Lyrica] 75 mg PO TID #20 capsule 07/08/17 Unknown Rx QUEtiapine [SEROquel] 25 mg PO DAILY #30 18 07/05/17 Unknown Rx Zolpidem [Ambien] 5 mg PO QHS PRN #10 tablet 07/08/17 Unknown Rx ED Physical Exam - General Limitations: No Limitations General appearance: alert, in no apparent distress - Head Head exam: Present: atraumatic, normocephalic - Eye Eye exam: Present: normal appearance, EOMI. Absent: nystagmus - ENT ENT exam: Present: normal exam, normal orophraynx, mucous membranes moist, normal external ear exam - Neck Neck exam: Present: normal inspection - Respiratory Respiratory exam: Present: normal lung sounds bilaterally. Absent: respiratory distress - Cardiovascular Cardiovascular Exam: Present: regular rate, normal rhythm, normal heart sounds. Absent: systolic murmur, diastolic murmur, rubs, gallop - GI/Abdominal GI/Abdominal exam: Present: soft, normal bowel sounds. Absent: distended, tenderness, guarding, rebound, rigid, pulsatile mass - Rectal Rectal exam: Present: normal inspection, normal rectal tone, heme (+) stool, bloody stool, other (escorted by a nurse GLENNEY,FATMATA) - Extremities Exam Extremities exam: Present: normal inspection, full ROM, normal capillary refill. Absent: tenderness, pedal edema, joint swelling, calf tenderness - Back Exam Back exam: Present: normal inspection, full ROM. Absent: tenderness, CVA tenderness (R), paraspinal tenderness, vertebral tenderness - Neurological Exam Neurological exam: Present: alert, oriented X3, CN II-XII intact, normal gait, other (Extraocular movements intact. Tongue midline. No facial droop. Facial sensation intact to light touch in the V1, V2, V3 distribution bilaterally. 5 and 5 strength in 4 extremities.. Sensation is intact to light touch in 4 extremities.). Absent: motor sensory deficit - Psychiatric Psychiatric exam: Present: normal affect, normal mood - Skin Skin exam: Present: warm, dry, intact, normal color. Absent: rash ED Course Vital Signs 07/12/17 07/12/17 08:49 10:16 Temperature 98.6 F Pulse Rate 108 H 99 H Respiratory 18 18 Rate Blood Pressure 128/81 Blood Pressure 123/78 [Left] O2 Sat by Pulse 98 99 Oximetry - Reevaluation(s) Reevaluation #1: 07/12/17 11:35 The patient was also recently discharged with multiple prescriptions from the medicine service 4 days ago from this hospital. Reevaluation #2: 07/12/17 11:36 Patient is requesting morphine for pain. There is no abdominal tenderness. Her tachycardia has resolved. Based on her history and physical and current presentation, she does not require narcotic therapy. Urinalysis is not consistent with urinary tract infection. ED Medical Decision Making - Lab Data Result diagrams: 07/12/17 09:02 07/12/17 09:02 Vital Signs 07/12/17 07/12/17 08:49 10:16 Temperature 98.6 F Pulse Rate 108 H 99 H Respiratory 18 18 Rate Blood Pressure 128/81 Blood Pressure 123/78 [Left] O2 Sat by Pulse 98 99 Oximetry Labs 07/12/17 07/12/17 07/12/17 09:02 09:02 09:02 WBC 7.9 RBC 3.04 L Hgb 9.3 L Hct 29.0 L MCV 95 MCH 31 MCHC 32 RDW 19.4 H Plt Count 183 Lymph % (Auto) 16.2 Rice % (Auto) 7.3 Eos % (Auto) 1.1 Baso % (Auto) 0.6 Lymph # 1.3 Rice # 0.6 Eos # 0.1 Baso # 0.0 Seg Neutrophils % 74.8 H Seg Neutrophils # 5.9 PT 17.0 H INR 1.31 H APTT 43.2 H Sodium 136 L Chloride 97.4 L Carbon Dioxide 25 BUN 3 L Creatinine 0.3 L Estimated GFR > 60 BUN/Creatinine Ratio 10 Glucose 100 Calcium 8.6 Magnesium Total Bilirubin 2.60 H Total Protein 7.6 Albumin 3.1 L Albumin/Globulin Ratio 0.7 Lipase 27 Urine Color Urine Turbidity Urine pH Ur Specific [place] Urine Protein Urine Glucose (UA) Urine Ketones Urine Blood Urine Nitrite Urine Bilirubin Urine Urobilinogen Ur Leukocyte Esterase Urine WBC (Auto) Urine RBC (Auto) U Epithel Cells (Auto) Urine Mucus Urine HCG, Qual 07/12/17 07/12/17 09:02 10:16 WBC RBC Hgb Hct MCV MCH MCHC RDW Plt Count Lymph % (Auto) Rice % (Auto) Eos % (Auto) Baso % (Auto) Lymph # Rice # Eos # Baso # Seg Neutrophils % Seg Neutrophils # PT INR APTT Sodium Chloride Carbon Dioxide BUN Creatinine Estimated GFR BUN/Creatinine Ratio Glucose Calcium Magnesium 1.80 Total Bilirubin Total Protein Albumin Albumin/Globulin Ratio Lipase Urine Color Nasra Urine Turbidity Clear Urine pH 7.0 Ur Specific [place] 1.015 Urine Protein 30 mg/dl Urine Glucose (UA) Neg Urine Ketones Neg Urine Blood Neg Urine Nitrite Neg Urine Bilirubin Neg Urine Urobilinogen 4.0 Ur Leukocyte Esterase Tr Urine WBC (Auto) 3.0 Urine RBC (Auto) 2.0 U Epithel Cells (Auto) 13.0 Urine Mucus 2+ Urine HCG, Qual Negative - Radiology Data Radiology results: report reviewed, image reviewed Print Report Referring Physician: BENJAMIN CASTILLO Patient Name: MINERVA JUAREZ Date of : 1975 Sex: Female Report Date: 2017-07-07 Report Status: Finalized Findings [facility] [address] [place] [address] Magnetic Resonance Report Signed Patient: MINERVA JUAREZ MR#: [id number] : 1975 Acct:[id number] Age/Sex: 42 / F ADM Date: 07/05/17 Loc: 3A A358-[address]: JANET BORJAS MD Ordering Physician: BENJAMIN CASTILLO MD Date of Service: 07/07/17 Procedure(s): MR abdomen wo/w con Accession Number(s): [id number] cc: BENJAMIN CASTILLO MD MRI ABDOMEN WITHOUT AND WITH CONTRAST : 07/07/17 07:00:00 CLINICAL: Abnormal liver on CT. COMPARISON :05/13/17 and 10/29/16 CT abdomen and pelvis TECHNIQUE: Axial T1 in phase and opposed phase, coronal and axial T2 and axial T2 fat sat sequences plus multiphase postcontrast T1 fat sat sequences plus thin and thick slab MRCP sequences on a 1.5 Yoselin magnet. 17.0 cc of Multihance was injected intravenously for the contrast portion of the exam and consent was obtained prior to the administration of the contrast. FINDINGS: Marked hepatomegaly with the right lobe of the liver measuring 28.4 cm in length. Heterogeneous hepatic signal on both T1 and T2. The upper portion of the liver has more heterogeneous signal whereas the more inferior portion of the right and left lobes has more homogeneous abnormal signal. Heterogeneous signal drop out and homogeneous signal dropout on opposed phase sequence is consistent with hepatic steatosis. No mass or enhancing lesion of the liver. The gallbladder is markedly distended with a normal thin wall. No evidence of cholelithiasis or choledocholithiasis. The bile ducts are normal. The common bile duct measures 5 mm maximum diameter in the supra-pancreatic portion of the CBD. The pancreas is normal with no signs of acute or chronic pancreatitis. The pancreatic duct is normal. The portal veins and hepatic veins are patent. The spleen is enlarged and measures approximately 19 cm in length. Splenic varices and portosystemic collaterals in the left abdomen. No esophageal or gastric varices are identified. Normal adrenal glands and kidneys. The renal collecting systems and ureters are nondilated. No ascites. The aorta and inferior vena cava are normal. Imaged portions of small bowel and colon are normal. IMPRESSION: 1. Hepatic steatosis and marked hepatomegaly. 2. Normal biliary tract and pancreas. 3. No liver mass. 4. Portal hypertension with splenomegaly, splenic varices and portosystemic collaterals in the left abdomen. 5. No ascites. Transcribed By: REF Dictated By: ALEXANDRIA WILKINSON MD Electronically Authenticated By: ALEXANDRIA WILKINSON MD Signed Date/Time: 07/07/17 163 DD/ 1629 TD/TT: 07/07/17 1638 - Medical Decision Making Differential diagnosis, including but not limited to: Diverticular bleed, internal hemorrhoids, liver disease Assessment and plan: 42-year-old female with a history of alcohol abuse, multiple recent upper endoscopies, supposed to follow-up as an outpatient for a pill endoscopy as per her old discharge note from gastroenterology. She has flecked red blood on her rectal exam but is hemodynamically stable and her hemoglobin and hematocrit are not dramatically dissimilar from prior values. 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 Case was discussed with gastroenterology recreational vehicle repairer, Leland Vidales; working with Dr. Ernst Pedro. She indicates the patient had a colonoscopy in April of this year, it demonstrated hemorrhoids and diverticula and polyps. She further reports the patient's pathology was unremarkable. She further indicates the patient can follow up with outpatient gastroenterology within the next 48 hours for outpatient follow-up with Dr. Zeng. Contrary to what patient states, the patient does not have biopsy-proven Crohn' s disease. This was specifically dressed with gastroenterology. The patient does not meet 1013 criteria and she is clinically sober at this time. Her abdomen is soft and benign with no rebound, guarding or peritoneal signs. She recently had abdominal MRI, results of an copied and pasted. There does not appear to be an emergent decompensated condition at this time, the patient is suitable to follow-up with her outpatient smoke room operator. Critical care attestation.: If time is entered above; I have spent that time in minutes in the direct care of this critically ill patient, excluding procedure time. ED Disposition Clinical Impression: Generalized abdominal pain, Rectal bleeding Disposition: -01 TO HOME OR SELFCARE Is pt being admited?: No Does the pt Need Aspirin: No Condition: Good Instructions: Abdominal Pain (ED) Additional Instructions: Continue outpatient medications. Follow-up with gastroenterology within the next week. Avoid consumption of Motrin, ibuprofen, Naprosyn, Aleve, Tylenol. Return to the ER right away with new pain, worsening pain, migration of pain, increased bleeding, intractable nausea or vomiting, confusion, inability to tolerate liquid feeds. Referrals: PRIMARY CARE, [Primary Care Provider] - 3-5 Days FAROOQ ZENG MD [Staff Physician] - 3-5 Days BENJAMIN CASTILLO MD [Staff Physician] - 3-5 Days
[2017-07-12 10:11] LABS: Basophils % (Auto) 0.6 % (0.0-1.8); Eosinophils # (Auto) 0.1 K/mm3 (0.0-0.4); Eosinophils % (Auto) 1.1 % (0.0-4.3); Hemoglobin 9.3 gm/dl (10.1-14.3); Lymphocytes # (Auto) 1.3 K/mm3 (1.2-5.4); Lymphocytes % (Auto) 16.2 % (13.4-35.0); Mean Corpuscular HGB Conc 32 % (30-34); Mean Corpuscular Hemoglobin 31 pg (28-32); Mean Corpuscular Volume 95 fl (79-97); Monocytes # (Auto) 0.6 K/mm3 (0.0-0.8); Monocytes % (Auto) 7.3 % (0.0-7.3); Platelet Count 183 K/mm3 (140-440); Red Blood Count 3.04 M/mm3 (3.65-5.03); Red Cell Distribution Width 19.4 % (13.2-15.2)
[2017-07-12 10:22] LABS: INR 1.31 (0.87-1.13)
[2017-07-12 10:23] LABS: Partial Thromboplastin Time 43.2 Sec. (24.2-36.6)
[2017-07-12 10:33] LABS: Albumin 3.1 g/dL (3.9-5); BUN/Creatinine Ratio 10; Blood Urea Nitrogen 3 mg/dL (7-17); Calcium 8.6 mg/dL (8.4-10.2); Hemolysis Index 279; Lipase 27 units/L (13-60)
[2017-07-12 10:40] LABS: Bilirubin,Urine NEG (Negative); Blood,Urine NEG (Negative); Color,Urine Amber (Yellow); Mucus,Urine 2+ /HPF
[2017-07-12 10:51] LABS: HCG Qualitative,Urine Negative (Negative)
[2017-07-12 11:09] LABS: Alanine Aminotransferase 21 units/L (7-56)
[2017-07-12 12:08] VITALS: BP 115/64
== END 2017-07-12 12:08 | disposition home or self-care (01) ==
LOC: ED 08:37
DX: K62.5 Hemorrhage of anus and rectum (principal); R10.84 Generalized abdominal pain; R30.0 Dysuria; J45.909 Unspecified asthma, uncomplicated; G62.9 Polyneuropathy, unspecified; Z87.891 Personal history of nicotine dependence
CPT/HCPCS: 36415; 80053; 81001; 81025; 82271; 83690; 83735; 85025; 85610; 85730; 87086; 99284; Q0162

== ENCOUNTER 2017-09-02 06:41 | Day surgery (SDC) | payer BC ==
[2017-09-02 07:33] LABS: Hematocrit 29.1 % (30.3-42.9); Hemoglobin 9.6 gm/dl (10.1-14.3); Mean Corpuscular HGB Conc 33 % (30-34); Mean Corpuscular Hemoglobin 30 pg (28-32); Mean Corpuscular Volume 91 fl (79-97); Platelet Count 193 K/mm3 (140-440); Red Blood Count 3.19 M/mm3 (3.65-5.03)
[2017-09-02 07:42] LABS: INR 1.18 (0.87-1.13)
[2017-09-02 07:43] LABS: Partial Thromboplastin Time 42.9 Sec. (24.2-36.6); Red Cell Distribution Width 22.9 % (13.2-15.2)
[2017-09-02] MEDS ORDERED: SUBLIMAZE IV NR (08:09)
[2017-09-02] MEDS ORDERED: VERSED IV NR (08:09)
[2017-09-02 08:31] LABS: Anisocytosis 1+; Basophils % (Manual) 0 % (0.0-1.8); Eosinophils % (Manual) 0 % (0.0-4.3); Platelet Estimate Consistent w Auto; Total Cells Counted 100
[2017-09-02] MEDS ORDERED: BENADRYL ONE (09:12)
[2017-09-02] MEDS ORDERED: BENADRYL IV NR (09:17)
[2017-09-02] MEDS ORDERED: XANAX PO NR (10:08)
[2017-09-02 11:56] VITALS: BP 111/55
--- NOTE | 2017-09-02 15:38 | Cat Scan Report ---
CT BIOPSY LIVER HISTORY: Hepatomegaly. DESCRIPTION OF PROCEDURE: Informed consent was obtained. Sterile technique was utilized. 1% lidocaine for skin anesthesia. Moderate sedation was accomplished with Versed, fentanyl and Benadryl. The patient was sedated for 20 minutes. Independent cardiorespiratory monitoring by RN. Intraobserver time was [address] guidance, a 17-gauge introducer needle was advanced into the right hepatic lobe. A 1.2 cm 18-gauge core biopsy was obtained for pathology. Followup scan demonstrated no evidence for hemorrhage. No complications. IMPRESSION: Successful CT-guided biopsy of the right hepatic lobe.
== END 2017-09-02 12:15 | disposition home or self-care (01) ==
LOC: CATHLABREC 06:41 → EDSTATUS 08:30 → CATHLABREC 12:15
PROVIDERS: ATTEND Internal Medicine Gastroenterology
DX: K75.81 Nonalcoholic steatohepatitis (NASH) (principal); K74.0 Hepatic fibrosis; J45.909 Unspecified asthma, uncomplicated
CPT/HCPCS: 36415; 47000; 77012; 85007; 85025; 85610; 85730; 88307; 88313; J1200; J2250; J3010

== ENCOUNTER 2017-11-06 05:49 | Inpatient (IN) | payer BC ==
[2017-11-06 08:33] LABS: Basophils # (Auto) 0.1 K/mm3 (0.0-0.1); Basophils % (Auto) 0.7 % (0.0-1.8); Eosinophils # (Auto) 0.1 K/mm3 (0.0-0.4); Eosinophils % (Auto) 0.6 % (0.0-4.3); Lymphocytes # (Auto) 1.5 K/mm3 (1.2-5.4); Lymphocytes % (Auto) 16.2 % (13.4-35.0); Mean Corpuscular HGB Conc 34 % (30-34); Mean Corpuscular Hemoglobin 36 pg (28-32); Mean Corpuscular Volume 108 fl (79-97); Monocytes # (Auto) 0.6 K/mm3 (0.0-0.8); Monocytes % (Auto) 6.7 % (0.0-7.3); Platelet Count 190 K/mm3 (140-440); Red Blood Count 2.23 M/mm3 (3.65-5.03)
[2017-11-06 08:48] LABS: Red Cell Distribution Width 21.8 % (13.2-15.2)
[2017-11-06] MEDS ORDERED: ZOSYN/NS 3.375GM/50ML 3.375 GM/50 ML BAG IV ONE (08:50)
[2017-11-06 08:56] LABS: Alanine Aminotransferase 25 units/L (7-56); Albumin 2.8 g/dL (3.9-5); BUN/Creatinine Ratio 15; Blood Urea Nitrogen 6 mg/dL (7-17); Calcium 8.5 mg/dL (8.4-10.2); Hemolysis Index 0
[2017-11-06 08:57] LABS: Bacteria,Urine 1+ /HPF (Negative); Bilirubin,Urine NEG (Negative); Blood,Urine NEG (Negative); Color,Urine Amber (Yellow); Hyaline Casts,Urine 1 /LPF; Mucus,Urine FEW /HPF; Protein,Urine <15 mg/dL mg/dL (Negative)
[2017-11-06] MEDS ORDERED: VANCOMYCIN PHARMACY TO DOSE IV SCH (09:00)
[2017-11-06 09:11] LABS: INR 1.59 (0.87-1.13); Partial Thromboplastin Time 43.9 Sec. (24.2-36.6)
[2017-11-06] MEDS ORDERED: ULTRAM ONE (09:26)
[2017-11-06] MEDS ORDERED: ULTRAM PO ONE (09:28)
[2017-11-06] MEDS ORDERED: VANCOMYCIN 1,500 MG in NACL 0.9% 500 ML 500 ML IV ONE (09:30)
--- NOTE | 2017-11-06 10:19 | XRay Report ---
FINAL REPORT EXAM: XR CHEST 1V AP HISTORY: hypertension TECHNIQUE: Frontal chest x-ray. PRIORS: None currently available. FINDINGS: Cardiac silhouette is within normal limits. There is no effusion. There is no pneumothorax. There is no consolidation. Mildly prominent central pulmonary markings. No perihilar airspace opacities. There are no suspicious osseous lesions. IMPRESSION: Pulmonary findings may represent hypertension or developing pulmonary vascular congestion.
[2017-11-06] MEDS ORDERED: LASIX IV ONE (10:31)
--- NOTE | 2017-11-06 10:47 | Emergency Department Report ---
ED General Adult HPI - General Chief complaint: Pain General Stated complaint: BILATERAL LEG SWELLING/PAIN Time Seen by Provider: 11/06/17 07:48 Source: patient Mode of arrival: Ambulatory Limitations: No Limitations - History of Present Illness Initial comments: She is a somewhat confused 42 year old who states that her doctor told her to go to the emergency department on for swollen legs and some unknown laboratory abnormality. She is not complaining of acute shortness of breath. She is vague about how long her legs were swollen. She states it's 1997. She states it is Wednesday. She states that she lives in a shelter. She states that she had a liver biopsy and that she knows that she has liver problems. However she is not reporting a history of cirrhosis. Apparently she has been previously prescribed Seroquel. She lives in a shelter. She's had symptomatic anemia, cirrhosis, alcohol dependency, diverticulitis. She is a patient of [facility]. An MRI showed hepatic steatosis and market hepatomegaly. 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 Ascites was not visualized in June 2017. -: unknown - Related Data Home Medications Medication Instructions Recorded Confirmed Last Taken Ergocalciferol [Vitamin D2] 1 cap PO QWEEK 09/02/17 09/02/17 08/31/17 Folic Acid [Folvite] 1 mg PO DAILY 09/02/17 09/02/17 09/01/17 Ondansetron [Zofran ODT TAB] 4 mg PO PRN PRN 09/02/17 09/02/17 Unknown Pregabalin [Lyrica] 100 mg PO TID 09/02/17 09/02/17 09/01/17 QUEtiapine [SEROquel] 50 mg PO QHS 09/02/17 09/02/17 09/01/17 oxyCODONE /ACETAMINOPHEN [Percocet 1 tab PO Q6H 09/02/17 09/02/17 Unknown 5/325 mg] Previous Rx's Medication Instructions Recorded Last Taken Type Multivitamin Tab W-MINERAL 1 each PO QDAY #30 tablet 07/08/17 09/01/17 Rx [Multiple Vitamin/Mineral (Theragran M)] Allergies Allergy/AdvReac Type Severity Reaction Status Date / Time No Known Allergies Allergy Verified 10/29/16 11:39 ED Review of Systems ROS: Stated complaint: BILATERAL LEG SWELLING/PAIN Other details as noted in HPI Comment: Unobtainable due to pts medical conditions ED Past Medical Hx - Past Medical History Hx Asthma: Yes Hx HIV: No Additional medical history: pancreatisis. neuropathy. diverticulits. anemia. chrons - Surgical History Past Surgical History?: No - Social History Smoking Status: Never Smoker Substance Use Type: None - Medications Home Medications: Home Medications Medication Instructions Recorded Confirmed Last Taken Type Multivitamin Tab W-MINERAL 1 each PO QDAY #30 tablet 07/08/17 09/02/17 09/01/17 Rx [Multiple Vitamin/Mineral (Theragran M)] Ergocalciferol [Vitamin D2] 1 cap PO QWEEK 09/02/17 09/02/17 08/31/17 History Folic Acid [Folvite] 1 mg PO DAILY 09/02/17 09/02/17 09/01/17 History Ondansetron [Zofran ODT TAB] 4 mg PO PRN PRN 09/02/17 09/02/17 Unknown History Pregabalin [Lyrica] 100 mg PO TID 09/02/17 09/02/17 09/01/17 History QUEtiapine [SEROquel] 50 mg PO QHS 09/02/17 09/02/17 09/01/17 History oxyCODONE /ACETAMINOPHEN [Percocet 1 tab PO Q6H 09/02/17 09/02/17 Unknown History 5/325 mg] ED Physical Exam - General General appearance: alert, in no apparent distress - Head Head exam: Present: atraumatic, normocephalic - Eye Eye exam: Present: normal appearance. Absent: scleral icterus - ENT ENT exam: Present: mucous membranes moist - Neck Neck exam: Present: normal inspection. Absent: tenderness, meningismus - Respiratory Respiratory exam: Present: normal lung sounds bilaterally. Absent: respiratory distress - Cardiovascular Cardiovascular Exam: Present: regular rate, normal rhythm. Absent: systolic murmur, diastolic murmur, rubs, gallop - GI/Abdominal GI/Abdominal exam: Present: soft, normal bowel sounds, organomegaly ( hepatomegaly). Absent: distended, tenderness, guarding, rebound, rigid - Extremities Exam Extremities exam: Present: other (bilateral lower extremity edema). Absent: calf tenderness - Back Exam Back exam: Present: normal inspection - Neurological Exam Neurological exam: Present: alert, oriented X3, CN II-XII intact. Absent: motor sensory deficit - Psychiatric Psychiatric exam: Present: normal affect, normal mood - Skin Skin exam: Present: warm, dry, intact, normal color. Absent: rash ED Course Vital Signs 11/06/17 11/06/17 11/06/17 07:03 08:33 08:34 Temperature 98.6 F 98.1 F Pulse Rate 119 H 112 H Respiratory 16 15 15 Rate Blood Pressure 102/58 Blood Pressure 119/71 [Left] O2 Sat by Pulse 99 99 99 Oximetry 11/06/17 11/06/17 09:20 10:08 Temperature Pulse Rate 112 H 112 H Respiratory 13 12 Rate Blood Pressure Blood Pressure 131/69 110/64 [Left] O2 Sat by Pulse 97 96 Oximetry - Reevaluation(s) Reevaluation #1: Patient has a somewhat elevated BNP. Her chest x-ray is somewhat suggestive of CHF or at least venous congestion. She is given 20 of Lasix. She is admitted to the hospitalist service further care and evaluation. She was given empiric vancomycin and Zosyn due to an elevated lactic acid. However do not believe the patient is septic. She may have a UTI. Further antibiotic coverage or lack thereof will be per discretion of the hospitalist staff. 11/06/17 10:47 11/06/17 10:48 ED Medical Decision Making - Lab Data Result diagrams: 11/06/17 08:02 11/06/17 08:02 Laboratory Results - last 24 hr 11/06/17 11/06/17 11/06/17 08:02 08:02 08:02 WBC 9.5 RBC 2.23 L Hgb 8.0 L Hct 24.0 L MCV 108 H MCH 36 H MCHC 34 RDW 21.8 H Plt Count 190 Lymph % (Auto) 16.2 [place] % (Auto) 6.7 Eos % (Auto) 0.6 Baso % (Auto) 0.7 Lymph # 1.5 [place] # 0.6 Eos # 0.1 Baso # 0.1 Seg Neutrophils % 75.8 H Seg Neutrophils # 7.2 PT INR APTT Sodium 133 L Potassium 3.7 Chloride 88.2 L Carbon Dioxide 32 H Anion Gap 17 BUN 6 L Creatinine 0.4 L Estimated GFR > 60 BUN/Creatinine Ratio 15 Glucose 110 H Lactic Acid Calcium 8.5 Magnesium Total Bilirubin 4.00 H AST 101 H ALT 25 Alkaline Phosphatase 107 Ammonia Total Creatine Kinase CK-MB (CK-2) CK-MB (CK-2) Rel Index Troponin T NT-Pro-B Natriuret Pep Total Protein 7.3 Albumin 2.8 L Albumin/Globulin Ratio 0.6 TSH HCG, Qual Negative Urine Color Urine Turbidity Urine pH Ur Specific [place] Urine Protein Urine Glucose (UA) Urine Ketones Urine Blood Urine Nitrite Urine Bilirubin Urine Urobilinogen Ur Leukocyte Esterase Urine WBC (Auto) Urine RBC (Auto) U Epithel Cells (Auto) Urine Bacteria (Auto) Hyaline Casts Urine Mucus Blood Type Antibody Screen 11/06/17 11/06/17 11/06/17 08:02 08:02 08:02 WBC RBC Hgb Hct MCV MCH MCHC RDW Plt Count Lymph % (Auto) [place] % (Auto) Eos % (Auto) Baso % (Auto) Lymph # [place] # Eos # Baso # Seg Neutrophils % Seg Neutrophils # PT 19.5 H INR 1.59 H APTT 43.9 H Sodium Potassium Chloride Carbon Dioxide Anion Gap BUN Creatinine Estimated GFR BUN/Creatinine Ratio Glucose Lactic Acid Calcium Magnesium 1.90 Total Bilirubin AST ALT Alkaline Phosphatase Ammonia 52.0 Total Creatine Kinase 24 L CK-MB (CK-2) 1.0 CK-MB (CK-2) Rel Index 4.1 H Troponin T NT-Pro-B Natriuret Pep Total Protein Albumin Albumin/Globulin Ratio TSH HCG, Qual Urine Color Urine Turbidity Urine pH Ur Specific [place] Urine Protein Urine Glucose (UA) Urine Ketones Urine Blood Urine Nitrite Urine Bilirubin Urine Urobilinogen Ur Leukocyte Esterase Urine WBC (Auto) Urine RBC (Auto) U Epithel Cells (Auto) Urine Bacteria (Auto) Hyaline Casts Urine Mucus Blood Type Antibody Screen 11/06/17 11/06/17 11/06/17 08:02 08:02 08:02 WBC RBC Hgb Hct MCV MCH MCHC RDW Plt Count Lymph % (Auto) [place] % (Auto) Eos % (Auto) Baso % (Auto) Lymph # [place] # Eos # Baso # Seg Neutrophils % Seg Neutrophils # PT INR APTT Sodium Potassium Chloride Carbon Dioxide Anion Gap BUN Creatinine Estimated GFR BUN/Creatinine Ratio Glucose Lactic Acid 2.80 H* Calcium Magnesium Total Bilirubin AST ALT Alkaline Phosphatase Ammonia Total Creatine Kinase CK-MB (CK-2) CK-MB (CK-2) Rel Index Troponin T 0.012 NT-Pro-B Natriuret Pep 678.9 H Total Protein Albumin Albumin/Globulin Ratio TSH 0.871 HCG, Qual Urine Color Urine Turbidity Urine pH Ur Specific [place] Urine Protein Urine Glucose (UA) Urine Ketones Urine Blood Urine Nitrite Urine Bilirubin Urine Urobilinogen Ur Leukocyte Esterase Urine WBC (Auto) Urine RBC (Auto) U Epithel Cells (Auto) Urine Bacteria (Auto) Hyaline Casts Urine Mucus Blood Type Antibody Screen 11/06/17 11/06/17 08:02 Unknown WBC RBC Hgb Hct MCV MCH MCHC RDW Plt Count Lymph % (Auto) [place] % (Auto) Eos % (Auto) Baso % (Auto) Lymph # [place] # Eos # Baso # Seg Neutrophils % Seg Neutrophils # PT INR APTT Sodium Potassium Chloride Carbon Dioxide Anion Gap BUN Creatinine Estimated GFR BUN/Creatinine Ratio Glucose Lactic Acid Calcium Magnesium Total Bilirubin AST ALT Alkaline Phosphatase Ammonia Total Creatine Kinase CK-MB (CK-2) CK-MB (CK-2) Rel Index Troponin T NT-Pro-B Natriuret Pep Total Protein Albumin Albumin/Globulin Ratio TSH HCG, Qual Urine Color Nasra Urine Turbidity Slightly-cloudy Urine pH 6.0 Ur Specific [place] 1.010 Urine Protein <15 mg/dl Urine Glucose (UA) Neg Urine Ketones Neg Urine Blood Neg Urine Nitrite Neg Urine Bilirubin Neg Urine Urobilinogen 2.0 Ur Leukocyte Esterase Lg Urine WBC (Auto) 30.0 H Urine RBC (Auto) 8.0 U Epithel Cells (Auto) 24.0 H Urine Bacteria (Auto) 1+ Hyaline Casts 1 Urine Mucus Few Blood Type A POSITIVE Antibody Screen Negative - EKG Data -: EKG Interpreted by Me EKG shows normal: sinus rhythm, axis, intervals, QRS complexes, ST-T waves Rate: tachycardia - EKG Data Interpretation: no acute changes - Radiology Data Radiology results: report reviewed interpreted by me: Venous congestion and cephalization consider CHF Critical care attestation.: If time is entered above; I have spent that time in minutes in the direct care of this critically ill patient, excluding procedure time. ED Disposition Clinical Impression: Elevated lactic acid level Congestive heart failure Qualifiers: Heart failure type: other Qualified Code(s): I50.9 - Heart failure, unspecified Cirrhosis Qualifiers: Hepatic cirrhosis type: unspecified hepatic cirrhosis Ascites presence: unspecified Qualified Code(s): K74.60 - Unspecified cirrhosis of liver UTI (urinary tract infection) Qualifiers: Urinary tract infection type: site unspecified Hematuria presence: without hematuria Qualified Code(s): N39.0 - Urinary tract infection, site not specified Anemia Qualifiers: Anemia type: unspecified type Qualified Code(s): D64.9 - Anemia, unspecified Disposition: 09 OP ADMIT IP TO THIS HOSP Is pt being admited?: Yes Does the pt Need Aspirin: No (Cirrhosis and anemia) Condition: Stable Time of Disposition: 10:51
[2017-11-06] MEDS ORDERED: MORPHINE IV ONE (11:05)
[2017-11-06] MEDS ORDERED: MORPHINE ONE (11:10)
--- NOTE | 2017-11-06 15:52 | History and Physical Report ---
History of Present Illness Date of examination: 11/06/17 Date of admission: 11/06/17 10:32 Chief complaint: general pain History of present illness: 42 year old who states that her doctor told her to go to the emergency department on for swollen legs and some unknown laboratory abnormality. She is not complaining of acute shortness of breath. She is vague about how long her legs were swollen. She states that she had a liver biopsy approx 6 weeks ago. However she is not reporting a history of cirrhosis. Apparently she has been previously prescribed Seroquel. She's had previous dx of symptomatic anemia, cirrhosis, alcohol dependency, diverticulitis. She is a patient of [facility]. An MRI showed hepatic steatosis and marked hepatomegaly. 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 Ascites was not visualized in June 2017. Pt also reports worsening neuropathy that she attributes to her general pain and weakness. I d/w Dr. Solitario who has seen her in the past here and in his office. he reports ETOH history with bx revealing fibrosis of liver which liikely represents early cirrhosis. Past History Past Medical History: anemia, other (liver disease, early gastric varices) Past Surgical History: No surgical history Social history: alcohol abuse Medications and Allergies Allergies Allergy/AdvReac Type Severity Reaction Status Date / Time No Known Allergies Allergy Verified 10/29/16 11:39 Home Medications Medication Instructions Recorded Confirmed Last Taken Type Multivitamin Tab W-MINERAL 1 each PO QDAY #30 tablet 07/08/17 09/02/17 09/01/17 Rx [Multiple Vitamin/Mineral (Theragran M)] Ergocalciferol [Vitamin D2] 1 cap PO QWEEK 09/02/17 09/02/17 08/31/17 History Folic Acid [Folvite] 1 mg PO DAILY 09/02/17 09/02/17 09/01/17 History Ondansetron [Zofran ODT TAB] 4 mg PO PRN PRN 09/02/17 09/02/17 Unknown History Pregabalin [Lyrica] 100 mg PO TID 09/02/17 09/02/17 09/01/17 History QUEtiapine [SEROquel] 50 mg PO QHS 09/02/17 09/02/17 09/01/17 History oxyCODONE /ACETAMINOPHEN [Percocet 1 tab PO Q6H 09/02/17 09/02/17 Unknown History 5/325 mg] Active Meds: Active Medications Vancomycin HCl (Vancomycin/Ns 1 Gm/250 Ml) 1 gm in 250 mls @ 166.667 mls/hr IV Q12H SUE Morphine Sulfate (Morphine) 1 mg IM Q6H PRN PRN Reason: Pain, Moderate (4-6) Review of Systems All systems: negative Exam - Constitutional Vitals: Temp Pulse Resp BP Pulse Ox 98.1 F 112 H 12 110/64 96 11/06/17 08:33 11/06/17 10:08 11/06/17 10:08 11/06/17 10:08 11/06/17 10:08 General appearance: Present: no acute distress, well-nourished - EENT Eyes: Present: PERRL ENT: hearing intact, clear oral mucosa - Neck Neck: Present: supple, normal ROM - Respiratory Respiratory effort: normal Respiratory: bilateral: CTA - Cardiovascular Heart Sounds: Present: S1 & S2. Absent: rub, click - Extremities Extremities: pulses symmetrical, No edema Peripheral Pulses: within normal limits - Abdominal General gastrointestinal: Present: soft, non-tender, non-distended, normal bowel sounds Female genitourinary: Present: normal - Integumentary Integumentary: Present: clear, warm, dry - Musculoskeletal Musculoskeletal: gait normal, strength equal bilaterally - Psychiatric Psychiatric: appropriate mood/affect, intact judgment & insight - Neurologic Neurologic: CNII-XII intact, moves all extremities Results - Labs CBC & Chem 7: 11/06/17 08:02 11/06/17 08:02 Labs: Laboratory Last Values WBC 9.5 K/mm3 (4.5-11.0) 11/06/17 08:02 RBC 2.23 M/mm3 (3.65-5.03) L 11/06/17 08:02 Hgb 8.0 gm/dl (10.1-14.3) L 11/06/17 08:02 Hct 24.0 % (30.3-42.9) L 11/06/17 08:02 MCV 108 fl (79-97) H 11/06/17 08:02 MCH 36 pg (28-32) H 11/06/17 08:02 MCHC 34 % (30-34) 11/06/17 08:02 RDW 21.8 % (13.2-15.2) H 11/06/17 08:02 Plt Count 190 K/mm3 (140-440) 11/06/17 08:02 Lymph % (Auto) 16.2 % (13.4-35.0) 11/06/17 08:02 [place] % (Auto) 6.7 % (0.0-7.3) 11/06/17 08:02 Eos % (Auto) 0.6 % (0.0-4.3) 11/06/17 08:02 Baso % (Auto) 0.7 % (0.0-1.8) 11/06/17 08:02 Lymph # 1.5 K/mm3 (1.2-5.4) 11/06/17 08:02 [place] # 0.6 K/mm3 (0.0-0.8) 11/06/17 08:02 Eos # 0.1 K/mm3 (0.0-0.4) 11/06/17 08:02 Baso # 0.1 K/mm3 (0.0-0.1) 11/06/17 08:02 Seg Neutrophils % 75.8 % (40.0-70.0) H 11/06/17 08:02 Seg Neutrophils # 7.2 K/mm3 (1.8-7.7) 11/06/17 08:02 PT 19.5 Sec. (12.2-14.9) H 11/06/17 08:02 INR 1.59 (0.87-1.13) H 11/06/17 08:02 APTT 43.9 Sec. (24.2-36.6) H 11/06/17 08:02 Sodium 133 mmol/L (137-145) L 11/06/17 08:02 Potassium 3.7 mmol/L (3.6-5.0) 11/06/17 08:02 Chloride 88.2 mmol/L (98-107) L 11/06/17 08:02 Carbon Dioxide 32 mmol/L (22-30) H 11/06/17 08:02 Anion Gap 17 mmol/L 11/06/17 08:02 BUN 6 mg/dL (7-17) L 11/06/17 08:02 Creatinine 0.4 mg/dL (0.7-1.2) L 11/06/17 08:02 Estimated GFR > 60 ml/min 11/06/17 08:02 BUN/Creatinine Ratio 15 % 11/06/17 08:02 Glucose 110 mg/dL (65-100) H 11/06/17 08:02 Lactic Acid 2.80 mmol/L (0.7-2.0) H* 11/06/17 08:02 Calcium 8.5 mg/dL (8.4-10.2) 11/06/17 08:02 Magnesium 1.90 mg/dL (1.7-2.3) 11/06/17 08:02 Total Bilirubin 4.00 mg/dL (0.1-1.2) H 11/06/17 08:02 AST 101 units/L (5-40) H 11/06/17 08:02 ALT 25 units/L (7-56) 11/06/17 08:02 Alkaline Phosphatase 107 units/L (35-129) 11/06/17 08:02 Ammonia 52.0 umol/L (25-60) 11/06/17 08:02 Total Creatine Kinase 24 units/L (30-135) L 11/06/17 08:02 CK-MB (CK-2) 1.0 ng/mL (0.0-4.0) 11/06/17 08:02 CK-MB (CK-2) Rel Index 4.1 (0-4) H 11/06/17 08:02 Troponin T 0.012 ng/mL (0.00-0.029) 11/06/17 08:02 NT-Pro-B Natriuret Pep 678.9 pg/mL (0-450) H 11/06/17 08:02 Total Protein 7.3 g/dL (6.3-8.2) 11/06/17 08:02 Albumin 2.8 g/dL (3.9-5) L 11/06/17 08:02 Albumin/Globulin Ratio 0.6 % 11/06/17 08:02 TSH 0.871 mlU/mL (0.270-4.200) 11/06/17 08:02 HCG, Qual Negative (Negative) 11/06/17 08:02 Urine Color Nasra (Yellow) 11/06/17 Unknown Urine Turbidity Slightly-cloudy (Clear) 11/06/17 Unknown Urine pH 6.0 (5.0-7.0) 11/06/17 Unknown Ur Specific [place] 1.010 (1.003-1.030) 11/06/17 Unknown Urine Protein <15 mg/dl mg/dL (Negative) 11/06/17 Unknown Urine Glucose (UA) Neg mg/dL (Negative) 11/06/17 Unknown Urine Ketones Neg mg/dL (Negative) 11/06/17 Unknown Urine Blood Neg (Negative) 11/06/17 Unknown Urine Nitrite Neg (Negative) 11/06/17 Unknown Urine Bilirubin Neg (Negative) 11/06/17 Unknown Urine Urobilinogen 2.0 mg/dL (<2.0) 11/06/17 Unknown Ur Leukocyte Esterase Lg (Negative) 11/06/17 Unknown Urine WBC (Auto) 30.0 /HPF (0.0-6.0) H 11/06/17 Unknown Urine RBC (Auto) 8.0 /HPF (0.0-6.0) 11/06/17 Unknown U Epithel Cells (Auto) 24.0 /HPF (0-13.0) H 11/06/17 Unknown Urine Bacteria (Auto) 1+ /HPF (Negative) 11/06/17 Unknown Hyaline Casts 1 /LPF 11/06/17 Unknown Urine Mucus Few /HPF 11/06/17 Unknown Blood Type A POSITIVE 11/06/17 08:02 Antibody Screen Negative 11/06/17 08:02 Assessment and Plan Assessment and plan: Sepsis. Pt meets criteria given tachycardia, AMS and dx of UTI. Cont Abx and place on sepsis pathway Toxic metabolic encephalopathy. Etiology secondary to UTI. Cont to treat underlying causes UTI. IV abx Coagulopathy. Etiology likely secondary to liver disease. ETOH abuse. [facility] protocol Peripheral neuropathy. Etiology may be nutritional. Will check B12 and Folate , Cont. Lyrica
[2017-11-06] MEDS ORDERED: ZOFRAN IV PRN (16:01)
[2017-11-06] MEDS ORDERED: ATIVAN IV PRN ×3 (16:01)
[2017-11-06] MEDS ORDERED: TYLENOL PO PRN (16:01)
[2017-11-06] MEDS ORDERED: SODIUM CHLORIDE FLUSH SYRINGE 10 ML IV PRN (16:01)
[2017-11-06] MEDS ORDERED: ZOFRAN ODT PO PRN (16:02)
[2017-11-06] MEDS ORDERED: NACL 0.9% 1000 ML 1,000 ML IV SCH (17:00)
[2017-11-06] MEDS: MORPHINE IM PRN ×2 (17:45→23:00)
[2017-11-06] MEDS ORDERED: NON-FORMULARY (Pregabalin [Lyrica] 100 MG) PO SCH (20:00)
[2017-11-06] MEDS: LYRICA PO SCH ×2 (20:48)
[2017-11-06] MEDS ORDERED: VANCOMYCIN/NS 1 GM/250 ML 1 GM/250 ML BAG IV SCH (22:00)
[2017-11-06] MEDS: LOVENOX SUB-Q SCH (22:52)
[2017-11-06] MEDS: SODIUM CHLORIDE FLUSH SYRINGE 10 ML IV SCH (22:52)
[2017-11-07] MEDS: MORPHINE IM PRN ×3 (06:40→18:45)
[2017-11-07 08:44] LABS: Basophils % (Auto) 0.2 % (0.0-1.8); Eosinophils # (Auto) 0.1 K/mm3 (0.0-0.4); Eosinophils % (Auto) 1.3 % (0.0-4.3); Hematocrit 21.9 % (30.3-42.9); Hemoglobin 7.4 gm/dl (10.1-14.3); Lymphocytes # (Auto) 1.2 K/mm3 (1.2-5.4); Lymphocytes % (Auto) 17.2 % (13.4-35.0); Mean Corpuscular HGB Conc 34 % (30-34); Mean Corpuscular Hemoglobin 36 pg (28-32); Mean Corpuscular Volume 108 fl (79-97); Monocytes # (Auto) 0.5 K/mm3 (0.0-0.8); Monocytes % (Auto) 7.4 % (0.0-7.3); Platelet Count 159 K/mm3 (140-440); Red Blood Count 2.03 M/mm3 (3.65-5.03)
[2017-11-07 08:46] LABS: Red Cell Distribution Width 21.4 % (13.2-15.2)
[2017-11-07 09:10] LABS: BUN/Creatinine Ratio 17; Blood Urea Nitrogen 5 mg/dL (7-17); Calcium 8.1 mg/dL (8.4-10.2); Hemolysis Index 43
[2017-11-07] MEDS: LYRICA PO SCH ×6 (09:56→22:35)
[2017-11-07] MEDS: THERAGRAN-M Tab PO SCH (09:57)
[2017-11-07] MEDS: FOLVITE PO SCH (09:57)
[2017-11-07] MEDS: PERCOCET 5/325 PO PRN ×2 (13:04→22:35)
[2017-11-07] MEDS: SODIUM CHLORIDE FLUSH SYRINGE 10 ML IV SCH ×2 (13:05→22:35)
[2017-11-07] MEDS ORDERED: NACL 0.9% 500 ML 500 ML IV ONE (14:27)
--- NOTE | 2017-11-07 14:27 | Progress Note ---
Assessment and Plan Assessment and plan: Sepsis. Pt meets criteria given tachycardia, AMS and dx of UTI. Cont Abx and place on sepsis pathway Toxic metabolic encephalopathy. Etiology secondary to UTI. Cont to treat underlying causes UTI. IV abx Anemia. Check iron studies. Transfuse 1 unit PRBCS Generalized weakness. Etiology secondary to seps +/- symptomatic anemia. Coagulopathy. Etiology likely secondary to liver disease. ETOH abuse. [facility] protocol Peripheral neuropathy. Etiology may be nutritional. Will check B12 and Folate , Cont. Lyrica History Interval history: Pt still c/o genralized weakness Hospitalist Physical - Constitutional Vitals: Temp Pulse Resp BP Pulse Ox 98.4 F 110 H 16 121/71 97 11/07/17 08:18 11/06/17 22:00 11/07/17 08:18 11/07/17 08:18 11/06/17 17:05 General appearance: Present: no acute distress, well-nourished - EENT Eyes: Present: PERRL, EOM intact ENT: hearing intact, clear oral mucosa, dentition normal - Neck Neck: Present: supple, normal ROM - Respiratory Respiratory effort: normal Respiratory: bilateral: CTA - Cardiovascular Rhythm: regular Heart Sounds: Present: S1 & S2. Absent: gallop, rub - Extremities Extremities: no ischemia, No edema, Full ROM - Abdominal General gastrointestinal: soft, non-tender, non-distended, normal bowel sounds - Integumentary Integumentary: Present: clear, warm, dry - Neurologic Neurologic: CNII-XII intact, moves all extremities Results - Labs CBC & Chem 7: 11/07/17 08:09 11/07/17 08:09 Labs: Laboratory Last Values WBC 7.2 K/mm3 (4.5-11.0) 11/07/17 08:09 RBC 2.03 M/mm3 (3.65-5.03) L 11/07/17 08:09 Hgb 7.4 gm/dl (10.1-14.3) L 11/07/17 08:09 Hct 21.9 % (30.3-42.9) L 11/07/17 08:09 MCV 108 fl (79-97) H 11/07/17 08:09 MCH 36 pg (28-32) H 11/07/17 08:09 MCHC 34 % (30-34) 11/07/17 08:09 RDW 21.4 % (13.2-15.2) H 11/07/17 08:09 Plt Count 159 K/mm3 (140-440) 11/07/17 08:09 Lymph % (Auto) 17.2 % (13.4-35.0) 11/07/17 08:09 [place] % (Auto) 7.4 % (0.0-7.3) H 11/07/17 08:09 Eos % (Auto) 1.3 % (0.0-4.3) 11/07/17 08:09 Baso % (Auto) 0.2 % (0.0-1.8) 11/07/17 08:09 Lymph # 1.2 K/mm3 (1.2-5.4) 11/07/17 08:09 [place] # 0.5 K/mm3 (0.0-0.8) 11/07/17 08:09 Eos # 0.1 K/mm3 (0.0-0.4) 11/07/17 08:09 Baso # 0.0 K/mm3 (0.0-0.1) 11/07/17 08:09 Seg Neutrophils % 73.9 % (40.0-70.0) H 11/07/17 08:09 Seg Neutrophils # 5.3 K/mm3 (1.8-7.7) 11/07/17 08:09 PT 19.5 Sec. (12.2-14.9) H 11/06/17 08:02 INR 1.59 (0.87-1.13) H 11/06/17 08:02 APTT 43.9 Sec. (24.2-36.6) H 11/06/17 08:02 Sodium 133 mmol/L (137-145) L 11/07/17 08:09 Potassium 3.7 mmol/L (3.6-5.0) 11/07/17 08:09 Chloride 89.7 mmol/L (98-107) L 11/07/17 08:09 Carbon Dioxide 30 mmol/L (22-30) 11/07/17 08:09 Anion Gap 17 mmol/L 11/07/17 08:09 BUN 5 mg/dL (7-17) L 11/07/17 08:09 Creatinine 0.3 mg/dL (0.7-1.2) L 11/07/17 08:09 Estimated GFR > 60 ml/min 11/07/17 08:09 BUN/Creatinine Ratio 17 % 11/07/17 08:09 Glucose 94 mg/dL (65-100) 11/07/17 08:09 Lactic Acid 2.80 mmol/L (0.7-2.0) H* 11/06/17 08:02 Calcium 8.1 mg/dL (8.4-10.2) L 11/07/17 08:09 Magnesium 1.90 mg/dL (1.7-2.3) 11/06/17 08:02 Total Bilirubin 4.00 mg/dL (0.1-1.2) H 11/06/17 08:02 AST 101 units/L (5-40) H 11/06/17 08:02 ALT 25 units/L (7-56) 11/06/17 08:02 Alkaline Phosphatase 107 units/L (35-129) 11/06/17 08:02 Ammonia 52.0 umol/L (25-60) 11/06/17 08:02 Total Creatine Kinase 24 units/L (30-135) L 11/06/17 08:02 CK-MB (CK-2) 1.0 ng/mL (0.0-4.0) 11/06/17 08:02 CK-MB (CK-2) Rel Index 4.1 (0-4) H 11/06/17 08:02 Troponin T 0.012 ng/mL (0.00-0.029) 11/06/17 08:02 NT-Pro-B Natriuret Pep 678.9 pg/mL (0-450) H 11/06/17 08:02 Total Protein 7.3 g/dL (6.3-8.2) 11/06/17 08:02 Albumin 2.8 g/dL (3.9-5) L 11/06/17 08:02 Albumin/Globulin Ratio 0.6 % 11/06/17 08:02 TSH 0.871 mlU/mL (0.270-4.200) 11/06/17 08:02 HCG, Qual Negative (Negative) 11/06/17 08:02 Urine Color Nasra (Yellow) 11/06/17 Unknown Urine Turbidity Slightly-cloudy (Clear) 11/06/17 Unknown Urine pH 6.0 (5.0-7.0) 11/06/17 Unknown Ur Specific [place] 1.010 (1.003-1.030) 11/06/17 Unknown Urine Protein <15 mg/dl mg/dL (Negative) 11/06/17 Unknown Urine Glucose (UA) Neg mg/dL (Negative) 11/06/17 Unknown Urine Ketones Neg mg/dL (Negative) 11/06/17 Unknown Urine Blood Neg (Negative) 11/06/17 Unknown Urine Nitrite Neg (Negative) 11/06/17 Unknown Urine Bilirubin Neg (Negative) 11/06/17 Unknown Urine Urobilinogen 2.0 mg/dL (<2.0) 11/06/17 Unknown Ur Leukocyte Esterase Lg (Negative) 11/06/17 Unknown Urine WBC (Auto) 30.0 /HPF (0.0-6.0) H 11/06/17 Unknown Urine RBC (Auto) 8.0 /HPF (0.0-6.0) 11/06/17 Unknown U Epithel Cells (Auto) 24.0 /HPF (0-13.0) H 11/06/17 Unknown Urine Bacteria (Auto) 1+ /HPF (Negative) 11/06/17 Unknown Hyaline Casts 1 /LPF 11/06/17 Unknown Urine Mucus Few /HPF 11/06/17 Unknown Blood Type A POSITIVE 11/06/17 08:02 Antibody Screen Negative 11/06/17 08:02
[2017-11-07] MEDS: ROCEPHIN/NS 1 GM/50 ML 1 GM/50 ML BAG IV SCH ×2 (19:59→20:01)
[2017-11-07] MEDS: LOVENOX SUB-Q SCH (22:34)
[2017-11-08] MEDS: MORPHINE IM PRN ×2 (01:26→10:16)
[2017-11-08] MEDS ORDERED: VITAMIN D2 PO SCH (10:00)
[2017-11-08] MEDS: LYRICA PO SCH ×6 (10:15→20:17)
[2017-11-08] MEDS: THERAGRAN-M Tab PO SCH (10:16)
[2017-11-08] MEDS: FOLVITE PO SCH (10:16)
[2017-11-08] MEDS: SODIUM CHLORIDE FLUSH SYRINGE 10 ML IV SCH ×2 (10:18→22:37)
--- NOTE | 2017-11-08 12:48 | Progress Note ---
Assessment and Plan Assessment and plan: Sepsis. Cont Abx and place on sepsis pathway Toxic metabolic encephalopathy. Etiology secondary to UTI. Cont to treat underlying causes UTI. IV abx Anemia. Check iron studies. s/p 1 unit PRBCS Generalized weakness. Etiology secondary to sepsis +/- symptomatic anemia. Shee reports improvement after PRBCs. Coagulopathy. Etiology likely secondary to liver disease. ETOH abuse. CINM protocol Peripheral neuropathy. Cont. Lyrica Disposition. Anticipate d/c in am History Interval history: Pt still c/o genralized weakness Hospitalist Physical - Constitutional Vitals: Temp Pulse Resp BP Pulse Ox 97.7 F 114 H 20 133/88 97 11/08/17 08:07 11/08/17 08:07 11/08/17 08:07 11/08/17 08:07 11/08/17 08:07 General appearance: Present: no acute distress, well-nourished - EENT Eyes: Present: PERRL, EOM intact ENT: hearing intact, clear oral mucosa, dentition normal - Neck Neck: Present: supple, normal ROM - Respiratory Respiratory effort: normal Respiratory: bilateral: CTA - Cardiovascular Rhythm: regular Heart Sounds: Present: S1 & S2. Absent: gallop, rub - Extremities Extremities: no ischemia, No edema, Full ROM - Abdominal General gastrointestinal: soft, non-tender, non-distended, normal bowel sounds - Integumentary Integumentary: Present: clear, warm, dry - Neurologic Neurologic: CNII-XII intact, moves all extremities Results - Labs CBC & Chem 7: 11/07/17 08:09 11/07/17 08:09 Labs: Laboratory Last Values WBC 7.2 K/mm3 (4.5-11.0) 11/07/17 08:09 RBC 2.03 M/mm3 (3.65-5.03) L 11/07/17 08:09 Hgb 7.4 gm/dl (10.1-14.3) L 11/07/17 08:09 Hct 21.9 % (30.3-42.9) L 11/07/17 08:09 MCV 108 fl (79-97) H 11/07/17 08:09 MCH 36 pg (28-32) H 11/07/17 08:09 MCHC 34 % (30-34) 11/07/17 08:09 RDW 21.4 % (13.2-15.2) H 11/07/17 08:09 Plt Count 159 K/mm3 (140-440) 11/07/17 08:09 Lymph % (Auto) 17.2 % (13.4-35.0) 11/07/17 08:09 [place] % (Auto) 7.4 % (0.0-7.3) H 11/07/17 08:09 Eos % (Auto) 1.3 % (0.0-4.3) 11/07/17 08:09 Baso % (Auto) 0.2 % (0.0-1.8) 11/07/17 08:09 Lymph # 1.2 K/mm3 (1.2-5.4) 11/07/17 08:09 [place] # 0.5 K/mm3 (0.0-0.8) 11/07/17 08:09 Eos # 0.1 K/mm3 (0.0-0.4) 11/07/17 08:09 Baso # 0.0 K/mm3 (0.0-0.1) 11/07/17 08:09 Seg Neutrophils % 73.9 % (40.0-70.0) H 11/07/17 08:09 Seg Neutrophils # 5.3 K/mm3 (1.8-7.7) 11/07/17 08:09 PT 19.5 Sec. (12.2-14.9) H 11/06/17 08:02 INR 1.59 (0.87-1.13) H 11/06/17 08:02 APTT 43.9 Sec. (24.2-36.6) H 11/06/17 08:02 Sodium 133 mmol/L (137-145) L 11/07/17 08:09 Potassium 3.7 mmol/L (3.6-5.0) 11/07/17 08:09 Chloride 89.7 mmol/L (98-107) L 11/07/17 08:09 Carbon Dioxide 30 mmol/L (22-30) 11/07/17 08:09 Anion Gap 17 mmol/L 11/07/17 08:09 BUN 5 mg/dL (7-17) L 11/07/17 08:09 Creatinine 0.3 mg/dL (0.7-1.2) L 11/07/17 08:09 Estimated GFR > 60 ml/min 11/07/17 08:09 BUN/Creatinine Ratio 17 % 11/07/17 08:09 Glucose 94 mg/dL (65-100) 11/07/17 08:09 Lactic Acid 2.80 mmol/L (0.7-2.0) H* 11/06/17 08:02 Calcium 8.1 mg/dL (8.4-10.2) L 11/07/17 08:09 Magnesium 1.90 mg/dL (1.7-2.3) 11/06/17 08:02 Total Bilirubin 4.00 mg/dL (0.1-1.2) H 11/06/17 08:02 AST 101 units/L (5-40) H 11/06/17 08:02 ALT 25 units/L (7-56) 11/06/17 08:02 Alkaline Phosphatase 107 units/L (35-129) 11/06/17 08:02 Ammonia 52.0 umol/L (25-60) 11/06/17 08:02 Total Creatine Kinase 24 units/L (30-135) L 11/06/17 08:02 CK-MB (CK-2) 1.0 ng/mL (0.0-4.0) 11/06/17 08:02 CK-MB (CK-2) Rel Index 4.1 (0-4) H 11/06/17 08:02 Troponin T 0.012 ng/mL (0.00-0.029) 11/06/17 08:02 NT-Pro-B Natriuret Pep 678.9 pg/mL (0-450) H 11/06/17 08:02 Total Protein 7.3 g/dL (6.3-8.2) 11/06/17 08:02 Albumin 2.8 g/dL (3.9-5) L 11/06/17 08:02 Albumin/Globulin Ratio 0.6 % 11/06/17 08:02 TSH 0.871 mlU/mL (0.270-4.200) 11/06/17 08:02 HCG, Qual Negative (Negative) 11/06/17 08:02 Urine Color Nasra (Yellow) 11/06/17 Unknown Urine Turbidity Slightly-cloudy (Clear) 11/06/17 Unknown Urine pH 6.0 (5.0-7.0) 11/06/17 Unknown Ur Specific [place] 1.010 (1.003-1.030) 11/06/17 Unknown Urine Protein <15 mg/dl mg/dL (Negative) 11/06/17 Unknown Urine Glucose (UA) Neg mg/dL (Negative) 11/06/17 Unknown Urine Ketones Neg mg/dL (Negative) 11/06/17 Unknown Urine Blood Neg (Negative) 11/06/17 Unknown Urine Nitrite Neg (Negative) 11/06/17 Unknown Urine Bilirubin Neg (Negative) 11/06/17 Unknown Urine Urobilinogen 2.0 mg/dL (<2.0) 11/06/17 Unknown Ur Leukocyte Esterase Lg (Negative) 11/06/17 Unknown Urine WBC (Auto) 30.0 /HPF (0.0-6.0) H 11/06/17 Unknown Urine RBC (Auto) 8.0 /HPF (0.0-6.0) 11/06/17 Unknown U Epithel Cells (Auto) 24.0 /HPF (0-13.0) H 11/06/17 Unknown Urine Bacteria (Auto) 1+ /HPF (Negative) 11/06/17 Unknown Hyaline Casts 1 /LPF 11/06/17 Unknown Urine Mucus Few /HPF 11/06/17 Unknown Blood Type A POSITIVE 11/06/17 08:02 Antibody Screen Negative 11/06/17 08:02 Crossmatch See Detail 11/06/17 08:02
[2017-11-08] MEDS: ROCEPHIN/NS 1 GM/50 ML 1 GM/50 ML BAG IV SCH (14:30)
[2017-11-08] MEDS: LOVENOX SUB-Q SCH (22:35)
[2017-11-08] MEDS: PERCOCET 5/325 PO PRN (22:36)
[2017-11-09 08:11] LABS: Hematocrit 24.1 % (30.3-42.9); Hemoglobin 8.1 gm/dl (10.1-14.3); Mean Corpuscular HGB Conc 34 % (30-34); Mean Corpuscular Hemoglobin 36 pg (28-32); Mean Corpuscular Volume 106 fl (79-97); Platelet Count 142 K/mm3 (140-440); Red Blood Count 2.27 M/mm3 (3.65-5.03)
[2017-11-09 08:12] LABS: BUN/Creatinine Ratio 12; Blood Urea Nitrogen 6 mg/dL (7-17); Calcium 8.5 mg/dL (8.4-10.2); Hemolysis Index 1
[2017-11-09 08:30] VITALS: BP 124/76
[2017-11-09 08:31] LABS: Red Cell Distribution Width 22.8 % (13.2-15.2)
--- NOTE | 2017-11-09 10:59 | Discharge Summary ---
Providers - Providers Date of Admission: 11/06/17 10:32 Date of discharge: 11/09/17 Attending physician: NASH DENNIS 11/07/17 10:20 Physical Therapy Evaluation and Treat [CONS] Routine Comment: Reason For Exam: Daryl LE weakness Primary care physician: [facility] Hospitalization Reason for admission: general weakness and malaise Condition: Stable Hospital course: 42 yo F who presents with c/o general weakness, fatigue and malaise. Admitted with dx of sepsis and Toxic metabolic encephalopathy. Pt was found to have etiology likely sec to UTI. Also, symptomatic anemia was contributing factor to weakness and fatigue.. Pt treated with PRBCs and stabilized CBC. Urine and blood cultures were negative. Pt received abx with resolution of sepsis/uti/ encephalopathy. D/C time 32 min Disposition: -01 TO HOME OR SELFCARE Time spent for discharge: 32 - Discharge Diagnoses (1) Sepsis Status: Acute (2) Anemia Status: Acute Qualifiers: Anemia type: unspecified type Qualified Code(s): D64.9 - Anemia, unspecified (3) UTI (urinary tract infection) Status: Acute Qualifiers: Urinary tract infection type: site unspecified Hematuria presence: without hematuria Qualified Code(s): N39.0 - Urinary tract infection, site not specified Core Measure Documentation - Palliative Care Palliative Care/ Comfort Measures: Not Applicable - Core Measures Any of the following diagnoses?: none Exam - Constitutional Vitals: Temp Pulse Resp BP Pulse Ox 97.8 F 108 H 18 124/76 98 11/09/17 08:07 11/09/17 08:07 11/09/17 08:07 11/09/17 08:07 11/09/17 08:07 General appearance: Present: no acute distress, well-nourished - EENT Eyes: Present: PERRL ENT: hearing intact, clear oral mucosa - Neck Neck: Present: supple, normal ROM - Respiratory Respiratory effort: normal Respiratory: bilateral: CTA - Cardiovascular Heart Sounds: Present: S1 & S2. Absent: rub, click - Extremities Extremities: pulses symmetrical, No edema Peripheral Pulses: within normal limits - Abdominal General gastrointestinal: Present: soft, non-tender, non-distended, normal bowel sounds Female genitourinary: Present: normal - Integumentary Integumentary: Present: clear, warm, dry - Musculoskeletal Musculoskeletal: gait normal, strength equal bilaterally - Psychiatric Psychiatric: appropriate mood/affect, intact judgment & insight - Neurologic Neurologic: CNII-XII intact, moves all extremities Plan Activity: no restrictions Weight Bearing Status: Full Weight Bearing Diet: regular Follow up with: PRIMARY CARE, [Primary Care Provider] - 3-5 Days Prescriptions: ALPRAZolam [Xanax TAB] 0.25 mg PO DAILY #12 tablet Folic Acid [Folvite] 1 mg PO DAILY #30 tablet Multivitamin Tab W-MINERAL [Multiple Vitamin/Mineral (Theragran M)] 1 each PO QDAY #30 tablet oxyCODONE /ACETAMINOPHEN [Percocet 5/325 mg] 1 tab PO Q6H #12 tablet Pregabalin [Lyrica] 100 mg PO TID #90 capsule QUEtiapine [SEROquel] 50 mg PO QHS #30 tablet
[2017-11-09] MEDS: LYRICA PO SCH ×2 (11:19→11:20)
[2017-11-09] MEDS: SODIUM CHLORIDE FLUSH SYRINGE 10 ML IV SCH (11:20)
[2017-11-09] MEDS: FOLVITE PO SCH (11:20)
[2017-11-09] MEDS: THERAGRAN-M Tab PO SCH (11:21)
[2017-11-09 16:49] LABS: Myelocytes # (Manual) 0.1 K/mm3; Total Cells Counted 100
[2017-11-09 16:50] LABS: Macrocytosis 1+; Platelet Estimate Consistent w Auto
== END 2017-11-09 13:30 | disposition home or self-care (01) | DRG 871 ==
LOC: ED 05:49 → 4A 10:32
PROVIDERS: ADMIT Hospitalist; ATTEND Hospitalist
PROC: 30233N1 Transfusion of Nonautologous Red Blood Cells into Peripheral Vein, Percutaneous Approach (ICD-10-PCS; principal; 2017-11-08)
DX: A41.9 Sepsis, unspecified organism (principal); G92 Toxic encephalopathy; N39.0 Urinary tract infection, site not specified; D68.9 Coagulation defect, unspecified; K76.6 Portal hypertension; K50.90 Crohn's disease, unspecified, without complications; I50.9 Heart failure, unspecified; K74.60 Unspecified cirrhosis of liver; D64.9 Anemia, unspecified; K76.0 Fatty (change of) liver, not elsewhere classified; G62.9 Polyneuropathy, unspecified; F10.20 Alcohol dependence, uncomplicated; J45.909 Unspecified asthma, uncomplicated
CPT/HCPCS: 36415; 71045; 80048; 80053; 81001; 82140; 82550; 82553; 83735; 83880; 84443; 84484; 84703; 85007; 85025; 85610; 85730; 86850; 86900; 86901; 86920; 87040; 87086; 93005; 93010; J0696; J1650; J1940; J2060; J2270; J2543; J3370; J7030; J7040; P9016

== ENCOUNTER 2018-08-05 07:22 | Outpatient (CLI) | payer BC ==
[2018-08-05 10:24] LABS: Basophils % (Auto) 0.4 % (0.0-1.8); Eosinophils # (Auto) 0.1 K/mm3 (0.0-0.4); Eosinophils % (Auto) 3.1 % (0.0-4.3); Hemoglobin 12.2 gm/dl (10.1-14.3); Lymphocytes # (Auto) 1.3 K/mm3 (1.2-5.4); Lymphocytes % (Auto) 30.5 % (13.4-35.0); Mean Corpuscular HGB Conc 35 % (30-34); Mean Corpuscular Volume 95 fl (79-97); Monocytes # (Auto) 0.2 K/mm3 (0.0-0.8); Monocytes % (Auto) 5.2 % (0.0-7.3); Platelet Count 116 K/mm3 (140-440); Red Blood Count 3.71 M/mm3 (3.65-5.03); Red Cell Distribution Width 15.9 % (13.2-15.2)
[2018-08-05 10:41] LABS: INR 1.26 (0.87-1.13)
[2018-08-05 10:48] LABS: Alanine Aminotransferase 21 units/L (7-56); BUN/Creatinine Ratio 20; Blood Urea Nitrogen 10 mg/dL (7-17); Hemolysis Index 5
[2018-08-05 11:10] LABS: Hepatitis B Surface Antigen Non-Reactive (Negative); Hepatitis C Virus Antibody Non-Reactive (NonReactive)
--- NOTE | 2018-08-05 14:24 | Magnetic Resonance Report ---
MRI ABDOMEN WITHOUT AND WITH CONTRAST : 08/05/18 07:30:00 CLINICAL: Followup liver disease. CT liver biopsy 09/02/17 revealed steatohepatitis. COMPARISON :07/07/17 TECHNIQUE: Axial T1 in phase and opposed phase, coronal and axial T2 and axial T2 sat sequences plus multiphase postcontrast T1 sat sequences on a 1.5 Yoselin magnet. 12 cc of Multihance was injected intravenously for the contrast portion of the exam and consent was obtained prior to the administration of the contrast. FINDINGS: The liver has decreased in size and the right lobe measures 19 cm in length compared to 28 cm on the last exam. Liver signal is now homogeneous and normal with no evidence of residual fat. No liver mass or nodularity. The gallbladder and bile ducts are normal. The common bile duct measures 6 mm diameter. The gallbladder is distended with a thin wall. No cholelithiasis. The hepatic veins and portal veins are intact. The splenic vein and superior mesenteric vein are intact. The spleen is enlarged and measures 21 cm in length compared to 19 cm in length on the last exam. Splenic varices and left abdominal portosystemic collateral veins are more pronounced than on the previous exam. No gastric or esophageal varices are identified. However, gastric folds are larger than on the previous exam. The pancreas is normal with a nondilated pancreatic duct. Adrenal glands and kidneys are normal. The renal collecting systems the ureters are nondilated. No ascites. The imaged portions of small bowel and colon are normal. The aorta and inferior vena cava are normal. IMPRESSION: 1. Interval improvement with resolution of hepatic steatosis. 2. Persistent mild hepatomegaly. 3. Slightly greater splenomegaly and more pronounced splenic varices than on the prior exam. 4. No evidence of venous thrombosis of the portal system. 5. No liver mass or nodularity. 6. Normal biliary tract with no cholelithiasis or choledocholithiasis.
== END 2018-08-05 07:23 | disposition home or self-care (01) ==
LOC: MRI 07:22
PROVIDERS: ATTEND Internal Medicine Gastroenterology
DX: K76.0 Fatty (change of) liver, not elsewhere classified (principal); R16.1 Splenomegaly, not elsewhere classified; J45.909 Unspecified asthma, uncomplicated; K21.9 Gastro-esophageal reflux disease without esophagitis; Z90.89 Acquired absence of other organs
CPT/HCPCS: 36415; 74183; 80053; 80074; 80076; 82103; 82106; 83520; 85025; 85610; A9577

== ENCOUNTER 2018-10-18 09:15 | Emergency (ER) | payer BC ==
[2018-10-18 10:14] LABS: Bacteria,Urine 1+ /HPF (Negative); Bilirubin,Urine NEG (Negative); Blood,Urine MOD (Negative); Color,Urine Red (Yellow); Urobilinogen,Urine < 2.0 mg/dL (<2.0)
[2018-10-18 10:15] LABS: Protein,Urine >2000 mg dL mg/dL (Negative); RBC,Urine > 182.0 /HPF (0.0-6.0)
[2018-10-18 10:49] LABS: Basophils % (Auto) 0.4 % (0.0-1.8); Eosinophils % (Auto) 0.8 % (0.0-4.3); Hematocrit 37.2 % (30.3-42.9); Hemoglobin 12.9 gm/dl (10.1-14.3); Lymphocytes # (Auto) 0.9 K/mm3 (1.2-5.4); Lymphocytes % (Auto) 16.8 % (13.4-35.0); Mean Corpuscular HGB Conc 35 % (30-34); Mean Corpuscular Volume 94 fl (79-97); Monocytes # (Auto) 0.2 K/mm3 (0.0-0.8); Monocytes % (Auto) 3.5 % (0.0-7.3); Platelet Count 102 K/mm3 (140-440); Red Blood Count 3.95 M/mm3 (3.65-5.03)
--- NOTE | 2018-10-18 11:03 | Emergency Department Report ---
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 Patient presented to the ER complaining off vaginal bleeding for the last 4 days. Patient stated that she think this is her menstrual period but she started to passing large clots this morning. Patient stated that she was seen by her primary care physician 10 days ago and she was told that her hemoglobin was 12. Patient stated that she is slightly dizzy. Patient denied any hematemesis, hematochezia, melena, hemoptysis or hematuria. MD Complaint: vaginal bleeding -: days(s) (5) Are you Now?: No - Related Data Home Medications Medication Instructions Recorded Confirmed Last Taken Ergocalciferol [Vitamin D2] 1 cap PO QWEEK 09/02/17 11/09/17 08/31/17 Previous Rx's Medication Instructions Recorded Last Taken Type ALPRAZolam [Xanax TAB] 0.25 mg PO DAILY #12 tablet 11/09/17 Unknown Rx Folic Acid [Folvite] 1 mg PO DAILY #30 tablet 11/09/17 Unknown Rx Multivitamin Tab W-MINERAL 1 each PO QDAY #30 tablet 11/09/17 Unknown Rx [Multiple Vitamin/Mineral (Theragran M)] Pregabalin [Lyrica] 100 mg PO TID #90 capsule 11/09/17 Unknown Rx QUEtiapine [SEROquel] 50 mg PO QHS #30 tablet 11/09/17 Unknown Rx oxyCODONE /ACETAMINOPHEN [Percocet 1 tab PO Q6H #12 tablet 11/09/17 Unknown Rx 5/325 mg] Allergies Allergy/AdvReac Type Severity Reaction Status Date / Time No Known Allergies Allergy Verified 10/29/16 11:39 ED Review of Systems ROS: Stated complaint: HBP/SEVERE CRAMPING Other details as noted in HPI Comment: All other systems reviewed and negative Respiratory: denies: cough, orthopnea, shortness of breath, SOB with exertion Cardiovascular: palpitations. denies: chest pain Gastrointestinal: denies: abdominal pain, nausea, vomiting Genitourinary: abnormal menses Musculoskeletal: denies: back pain Neurological: denies: headache, weakness ED Past Medical Hx - Past Medical History Previous Medical History?: Yes Hx Congestive Heart Failure: No Hx Diabetes: No Hx Asthma: Yes Hx COPD: No Hx HIV: No Additional medical history: pancreatisis. neuropathy. diverticulits. anemia. chrons - Social History Smoking Status: Never Smoker Substance Use Type: None - Medications Home Medications: Home Medications Medication Instructions Recorded Confirmed Last Taken Type Ergocalciferol [Vitamin D2] 1 cap PO QWEEK 09/02/17 11/09/17 08/31/17 History ALPRAZolam [Xanax TAB] 0.25 mg PO DAILY #12 tablet 11/09/17 Unknown Rx Folic Acid [Folvite] 1 mg PO DAILY #30 tablet 11/09/17 Unknown Rx Multivitamin Tab W-MINERAL 1 each PO QDAY #30 tablet 11/09/17 Unknown Rx [Multiple Vitamin/Mineral (Theragran M)] Pregabalin [Lyrica] 100 mg PO TID #90 capsule 11/09/17 Unknown Rx QUEtiapine [SEROquel] 50 mg PO QHS #30 tablet 11/09/17 Unknown Rx oxyCODONE /ACETAMINOPHEN [Percocet 1 tab PO Q6H #12 tablet 11/09/17 Unknown Rx 5/325 mg] ED Physical Exam - General Limitations: No Limitations General appearance: alert, in no apparent distress - Head Head exam: Present: atraumatic, normocephalic, normal inspection - Eye Eye exam: Present: normal appearance, PERRL - ENT ENT exam: Present: normal exam, normal orophraynx, mucous membranes moist - Neck Neck exam: Present: normal inspection, full ROM. Absent: tenderness, meningismus, lymphadenopathy, thyromegaly - Respiratory Respiratory exam: Present: normal lung sounds bilaterally - Cardiovascular Cardiovascular Exam: Present: regular rate, normal rhythm, normal heart sounds - GI/Abdominal GI/Abdominal exam: Present: soft, normal bowel sounds. Absent: distended, tenderness, guarding, rebound, rigid, organomegaly, mass, bruit, pulsatile mass, hernia - Extremities Exam Extremities exam: Present: normal inspection, full ROM, normal capillary refill. Absent: pedal edema, calf tenderness - Back Exam Back exam: Present: normal inspection, full ROM. Absent: CVA tenderness (R), CVA tenderness (L), muscle spasm, paraspinal tenderness, vertebral tenderness - Neurological Exam Neurological exam: Present: alert, oriented X3, CN II-XII intact, normal gait, reflexes normal - Psychiatric Psychiatric exam: Present: normal mood - Skin Skin exam: Present: warm, intact, normal color ED Course Vital Signs 10/18/18 09:28 Temperature 98.5 F Pulse Rate 111 H Respiratory 19 Rate Blood Pressure 130/84 [Left] O2 Sat by Pulse 95 Oximetry ED Medical Decision Making - Lab Data Result diagrams: 10/18/18 09:58 10/18/18 10:53 - Radiology Data Radiology results: report reviewed Referring Physician: SHAR LUIS Patient Name: MINERVA JUAREZ Date of : 1975 Sex: Female Report Date: 2018-10-18 Report Status: Finalized Findings [facility] [address] [place] [address] Ultrasound Report Signed Patient: MINERVA JUAREZ MR#: [id number] : 1975 Acct:[id number] Age/Sex: 43 / F ADM Date: 10/18/18 Loc: ED Attending Dr: Ordering Physician: SHAR LUIS Date of Service: 10/18/18 Procedure(s): US transvaginal Accession Number(s): [id number] cc: SHAR LUIS Pelvic ultrasound complete INDICATION: Vaginal bleeding, passing clots FINDINGS: Transabdominal and transvaginal imaging is performed. The uterus measures 8 cm in length. Endometrial stripe measures 10.5 mm. The right ovary measures 1.8 cm in length. The left ovary measures 2.8 cm in length. Small follicular cysts are noted in the left ovary. There are no adnexal masses. There is no free fluid. No focal uterine lesions are seen. IMPRESSION: Pelvic ultrasound is within normal limits. Signer Name: Geraldo Walker MD Signed: 10/18/2018 1:46 PM Workstation Name: [id number] Transcribed By: Dictated By: Geraldo Walker MD Electronically Authenticated By: Geraldo Walker MD Signed Date/Time: 10/18/18 1346 DD/ 1341 TD/TT: - Medical Decision Making Patient is 43 years old female with history of liver cirrhosis secondary to alcoholism. Patient presented to the ER complaining off vaginal bleeding for the last 4 days. Patient stated that she think this is her menstrual period but she started to passing large clots this morning. Patient stated that she was seen by her primary care physician 10 days ago and she was told that her hemoglobin was 12. Patient stated that she is slightly dizzy. Patient denied any hematemesis, hematochezia, melena, hemoptysis or hematuria. Patient stated that she is feeling better. Patient stated that vaginal bleeding is slowing since she got to the ER. Hemoglobin is 12.9. Pelvic ultrasound is negative for acute finding. Patient's symptoms is consistent with dysfunctional uterine bleeding. 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 She also advised to return to the ER if symptoms are not improved. Critical care attestation.: If time is entered above; I have spent that time in minutes in the direct care of this critically ill patient, excluding procedure time. ED Disposition Clinical Impression: Abnormal vaginal bleeding Disposition: DC-01 TO HOME OR SELFCARE Is pt being admited?: No Condition: Stable Instructions: Menorrhagia (ED), Dysfunctional Uterine Bleeding (ED) Referrals: CROW LOPES MD [Primary Care Provider] - 3-5 Days
[2018-10-18 11:17] LABS: INR 1.58 (0.87-1.13); Partial Thromboplastin Time 40.9 Sec. (24.2-36.6)
[2018-10-18 11:19] LABS: BUN/Creatinine Ratio 20; Blood Urea Nitrogen 10 mg/dL (7-17); Calcium 9.7 mg/dL (8.4-10.2); Hemolysis Index 4
[2018-10-18 11:23] LABS: Albumin 4.4 g/dL (3.9-5)
--- NOTE | 2018-10-18 13:51 | Ultrasound Report ---
Pelvic ultrasound complete INDICATION: Vaginal bleeding, passing clots FINDINGS: Transabdominal and transvaginal imaging is performed. The uterus measures 8 cm in length. Endometrial stripe measures 10.5 mm. The right ovary measures 1.8 cm in length. The left ovary measures 2.8 cm in length. Small follicular cysts are noted in the left ovary. There are no adnexal masses. There is no free fluid. No focal uterine lesions are seen. IMPRESSION: Pelvic ultrasound is within normal limits. Signer Name: Geraldo Walker MD Signed: 10/18/2018 1:46 PM Workstation Name: [id number]
[2018-10-18 14:22] VITALS: BP 123/62
== END 2018-10-18 14:29 | disposition home or self-care (01) ==
LOC: ED 09:15
DX: N93.9 Abnormal uterine and vaginal bleeding, unspecified (principal); J45.909 Unspecified asthma, uncomplicated; D64.9 Anemia, unspecified; Z90.49 Acquired absence of other specified parts of digestive tract; Z79.899 Other long term (current) drug therapy
CPT/HCPCS: 36415; 76830; 76856; 80048; 80076; 81001; 84703; 85025; 85610; 85730; 86850; 86900; 86901; 87086

== ENCOUNTER 2019-02-01 14:05 | Emergency (ER) | payer BC ==
[2019-02-01 14:18] VITALS: BP 140/76
--- NOTE | 2019-02-01 14:23 | Event Note ---
ED Screening Note Date of service: 02/01/19 Time: 14:15 ED Screening Note: 43 y o male presents with sob x 2 days she cc of pain with inhalation no recent travel hx of anemia This initial assessment/diagnostic orders/clinical plan/treatment(s) is/are subject to change based on patients health status, clinical progression and re- assessment by fellow clinical providers in the ED. Further treatment and workup at subsequent clinical providers discretion. Patient/guardian urged not to elope from the ED as their condition may be serious if not clinically assessed and managed. Initial orders include: [email or web address]
--- NOTE | 2019-02-01 15:12 | XRay Report ---
CHEST 2 VIEWS INDICATION / CLINICAL INFORMATION: Dyspnea. COMPARISON: One view of the chest from 11/06/2017. FINDINGS: SUPPORT DEVICES: None. HEART / MEDIASTINUM: There is mild cardiomegaly. LUNGS / PLEURA: There is probable bibasilar atelectasis. No significant pleural effusion. No pneumoth orax. ADDITIONAL FINDINGS: No significant additional findings. IMPRESSION: Mild cardiomegaly with probable bibasilar atelectasis. Signer Name: Feliciano Gregory MD Signed: 02/01/2019 3:07 PM Workstation Name: [id number]
[2019-02-01 15:50] LABS: BUN/Creatinine Ratio 21; Blood Urea Nitrogen 15 mg/dL (7-17); Calcium 9.1 mg/dL (8.4-10.2); Hemolysis Index 4
[2019-02-01 15:53] LABS: Hematocrit 28.9 % (30.3-42.9); Hemoglobin 9.7 gm/dl (10.1-14.3); Mean Corpuscular HGB Conc 33 % (30-34); Mean Corpuscular Volume 77 fl (79-97); Platelet Count 100 K/mm3 (140-440); Red Blood Count 3.75 M/mm3 (3.65-5.03)
[2019-02-01 15:55] LABS: Red Cell Distribution Width 23.4 % (13.2-15.2)
[2019-02-01 16:00] LABS: INR 1.54 (0.87-1.13)
[2019-02-01] MEDS ORDERED: LORazepam 2 MG/ML VIAL IM ONE (16:08)
[2019-02-01] MEDS ORDERED: KETOROLAC 60 MG/2 ML INJ IM ONE (16:29)
[2019-02-01 16:36] LABS: Anisocytosis 1+; Basophils % (Manual) 0 % (0.0-1.8); Eosinophils % (Manual) 0 % (0.0-4.3); Hypochromasia 1+; Total Cells Counted 100
--- NOTE | 2019-02-01 17:23 | Emergency Department Report ---
ED Chest Pain HPI - General Chief Complaint: Dyspnea/Respdistress Stated Complaint: SOB Time Seen by Provider: 02/01/19 15:41 Source: patient Mode of arrival: Ambulatory Limitations: No Limitations - History of Present Illness Initial Comments: 43-year-old female presents to the ER today complaining of right-sided chest pressure but then states that real reason she is here is for her low hemoglobin. She states chest pain started 2 days ago. She states that he has been constant in nature. Seems to be worse when she takes a deep breath and also when she moves. She reports associated shortness of breath. She states that she has also had some difficulty concentrating, and feeling lightheaded which the lightheadedness is not unusual for her. She states that she went to her primary care doctor's office yesterday, waited the lab work as part of the evaluation of her symptoms. They informed her that her hemoglobin was 8.8. Patient states that she is concerned about her hemoglobin because she has no source of bleeding. She states she has had blood transfusions in past but there was always a source for the bleeding, either GI or vaginal bleeding. She denies any blood in stool recently and her last MC was about 2 weeks ago and light. She denies hematuria, or hematemesis. She states the lightheadedness and the difficulty concentrating usually occurs when her hemoglobin is low. She is concerned that her hemoglobin is low this time with no source and she is concerned that if she gets discharged from the ER she may return worse and have to get a transfusion which has happened in past. She has been evaluated by GI in past, and she reports she has had several normal colonoscopies. She has also been seen by MECHANICAL TEST ENGINEER, she had a case of heavy vag bleeding in november and there was talks of doing an ablation but they wanted to wait to see how her follow MCs were. She denies any calf pain or leg swelling. She denies head injury, focal weakness, numbness tingling, speech changes or vision changes. She denies history of coronary artery disease. she denies any history of PE or DVT and has no risk factors for PE or DVT. MD Complaint: chest pain -: days(s) (2) Pain Location: right chest Pain Radiation: none Severity: moderate Severity scale (0 -10): 10 Quality: pressure Consistency: constant Improves With: nothing Worsens With: inspiration, movement re: dyspnea. denies: nausea, vomting, diaphoresis, sense of impending doom Other Symptoms: denies: cough, fever, syncope, rash, acid taste in mouth, leg swelling, palpitations, burping Treatments Prior to Arrival: none - Related Data On Oral Contraceptives: No Home Medications Medication Instructions Recorded Confirmed Last Taken Ergocalciferol [Vitamin D2] 1 cap PO QWEEK 09/02/17 11/09/17 08/31/17 Previous Rx's Medication Instructions Recorded Last Taken Type ALPRAZolam [Xanax TAB] 0.25 mg PO DAILY #12 tablet 11/09/17 Unknown Rx Folic Acid [Folvite] 1 mg PO DAILY #30 tablet 11/09/17 Unknown Rx Multivitamin Tab W-MINERAL 1 each PO QDAY #30 tablet 11/09/17 Unknown Rx [Multiple Vitamin/Mineral (Theragran M)] Pregabalin [Lyrica] 100 mg PO TID #90 capsule 11/09/17 Unknown Rx QUEtiapine [SEROquel] 50 mg PO QHS #30 tablet 11/09/17 Unknown Rx oxyCODONE /ACETAMINOPHEN [Percocet 1 tab PO Q6H #12 tablet 11/09/17 Unknown Rx 5/325 mg] medroxyPROGESTERone ACETATE 10 mg PO QDAY #10 tablet 10/18/18 Unknown Rx [Provera] Ferrous Sulfate [Ferrous Sulfate 324 mg PO BID #30 tablet. 02/01/19 Unknown Rx 324 MG] Allergies Allergy/AdvReac Type Severity Reaction Status Date / Time No Known Allergies Allergy Verified 10/29/16 11:39 Heart Score - HEART Score History: Slightly suspicious EKG: Normal Age: 45-65 Risk factors: 1-2 risk factors Troponin: < normal limit HEART Score: 2 ED Review of Systems ROS: Stated complaint: SOB Other details as noted in HPI Constitutional: denies: chills, fever, malaise Respiratory: shortness of breath. denies: cough, orthopnea, stridor, wheezing Cardiovascular: chest pain. denies: palpitations, orthopnea, edema, syncope, paroxysmal nocturnal dyspnea Gastrointestinal: denies: abdominal pain, nausea, vomiting, diarrhea, constipation, hematemesis, melena, hematochezia Genitourinary: denies: urgency, dysuria, discharge Musculoskeletal: denies: back pain, joint swelling, arthralgia Neurological: other (she reports difficulty concentrating) Hematological/Lymphatic: denies: easy bleeding, easy bruising ED Past Medical Hx - Past Medical History Previous Medical History?: Yes Hx Congestive Heart Failure: No Hx Diabetes: No Hx Asthma: Yes Hx COPD: No Hx HIV: No Additional medical history: pancreatisis. neuropathy. diverticulits. anemia. chrons - Surgical History Past Surgical History?: No - Social History Smoking Status: Never Smoker Substance Use Type: None - Medications Home Medications: Home Medications Medication Instructions Recorded Confirmed Last Taken Type Ergocalciferol [Vitamin D2] 1 cap PO QWEEK 09/02/17 11/09/17 08/31/17 History ALPRAZolam [Xanax TAB] 0.25 mg PO DAILY #12 tablet 11/09/17 Unknown Rx Folic Acid [Folvite] 1 mg PO DAILY #30 tablet 11/09/17 Unknown Rx Multivitamin Tab W-MINERAL 1 each PO QDAY #30 tablet 11/09/17 Unknown Rx [Multiple Vitamin/Mineral (Theragran M)] Pregabalin [Lyrica] 100 mg PO TID #90 capsule 11/09/17 Unknown Rx QUEtiapine [SEROquel] 50 mg PO QHS #30 tablet 11/09/17 Unknown Rx oxyCODONE /ACETAMINOPHEN [Percocet 1 tab PO Q6H #12 tablet 11/09/17 Unknown Rx 5/325 mg] medroxyPROGESTERone ACETATE 10 mg PO QDAY #10 tablet 10/18/18 Unknown Rx [Provera] Ferrous Sulfate [Ferrous Sulfate 324 mg PO BID #30 tablet. 02/01/19 Unknown Rx 324 MG] ED Physical Exam - General Limitations: No Limitations General appearance: alert, anxious - Head Head exam: Present: atraumatic, normocephalic - Eye Eye exam: Present: normal appearance, PERRL, EOMI - ENT ENT exam: Present: normal exam, normal orophraynx, mucous membranes moist - Neck Neck exam: Present: normal inspection. Absent: meningismus - Respiratory Respiratory exam: Absent: normal lung sounds bilaterally, respiratory distress, wheezes, rales, rhonchi, stridor, chest wall tenderness - Cardiovascular Cardiovascular Exam: Present: regular rate, normal rhythm, normal heart sounds - GI/Abdominal GI/Abdominal exam: Present: soft, distended - Extremities Exam Extremities exam: Present: normal inspection, full ROM, normal capillary refill. Absent: tenderness, pedal edema, calf tenderness - Neurological Exam Neurological exam: Present: alert, oriented X3, CN II-XII intact, normal gait. Absent: abnormal gait, motor sensory deficit - Skin Skin exam: Present: intact ED Course Vital Signs 02/01/19 02/01/19 14:17 16:56 Temperature 98.2 F Pulse Rate 97 H Respiratory 16 20 Rate Blood Pressure 140/76 O2 Sat by Pulse 96 Oximetry KSENIA score - Ksenia Score Age > 65: (0) No Aspirin use within the Past 7 Days: (0) No 3 or more CAD Risk Factors: (0) No 2 or more Angina events in past 24 hrs: (0) No Known CAD with more than 50% Stenosis: (0) No Elevated Cardiac Markers: (0) No ST Deviation Greater than 0.5mm: (0) No KSENIA Score: 0 ED Medical Decision Making - Lab Data Result diagrams: 02/01/19 14:55 02/01/19 14:55 - EKG Data EKG shows normal: sinus rhythm Rate: normal - EKG Data Interpretation: no acute changes, normal EKG - Radiology Data Radiology results: report reviewed - Medical Decision Making 43 year old female presents with right sided chest pain and sob but informed me that the main reason she is here is because of her hemoglobin. She has known hx of anemia. She went to her PCP yesterday and had labs done and was told her hemoglobin is 8.8. Pt reports being concerned that her hemoglobin is low without a source. She has had to have blood transfusions in past but she typically had a source of bleeding. She reports feeling lightheaded and having difficulty concentrating which tends to occur when her hemoglobin is dropping. She is con cerned if she goes home that she could get worse since it has happened to her in past and wanted to know if she could be admitted for iron transfusion. She actually went to see a landscaping crew leader today but they were out of her network and was sent to ER. She has had GI and OBGYN work ups in past as well to evaluate her anemia but she feels like she is not getting the answers she needs about her anemia. On exam pt appeared very anxious, with some improvement after ativan but otherwise she is awake, alert and oriented x 3 with no neuro deficits on exam. Head CT not inidicated at this time. EKG show no acute ischemic changes, trop negative, ddimer normal, cxr show mild cardiomegally but otherwise normal. hemoglobin today is actually better at 9.7. Remaining labs unremarkable including neg trop and neg BNP. Her VS stable, she not toxic or ill appearing. Discussed lab results, cxr and ekg results with pt. Discussed with patient that I do not see any indication for admission at this time, especially in regards to her hemoglobin which is better. Patient not very happy with plan, she states she has been dealing with this anemia for 3-4 yrs and just wants a solution. I explained to her I understand her frustration but from ER stand point, we have ruled out life threatening emergencies at this time. if she does get worse she is welcomed to return for another evaluation. In the mean time I recommend she follow-up with her PCP. Critical care attestation.: If time is entered above; I have spent that time in minutes in the direct care of this critically ill patient, excluding procedure time. ED Disposition Clinical Impression: Atypical chest pain, Anxiety Anemia Qualifiers: Anemia type: unspecified type Qualified Code(s): D64.9 - Anemia, unspecified Disposition: DC-01 TO HOME OR SELFCARE Is pt being admited?: No Does the pt Need Aspirin: No Condition: Stable Instructions: Anemia (ED), Chest Pain (ED) Prescriptions: Ferrous Sulfate [Ferrous Sulfate 324 MG] 324 mg PO BID #30 tablet. Referrals: PRIMARY CARE, [Primary Care Provider] - 3-5 Days Time of Disposition: 19:04
== END 2019-02-01 19:37 | disposition home or self-care (01) ==
LOC: ED 14:05
DX: F41.9 Anxiety disorder, unspecified (principal); D64.9 Anemia, unspecified; J45.909 Unspecified asthma, uncomplicated; Z98.890 Other specified postprocedural states
CPT/HCPCS: 36415; 71046; 80048; 83880; 84484; 85007; 85025; 85379; 85610; 85730; 93005; 93010; 96372; 99284; J1885; J2060

== ENCOUNTER 2019-02-27 14:19 | Outpatient (CLI) | payer BC ==
--- NOTE | 2019-02-28 14:23 | Mammography Report ---
BONE DEXA. History: SUBCLINICAL HYPERTHYROIDISM Procedure: 3 site bone densitometry performed on a Hologic scanner. Comparison: None Findings: The BMD of the lumbar spine is 0.808 gm/cm2 with a T-score of -2.2 and a Z-score of -1.7 . The bone mineral density (BMD) of the left femoral neck is 0.681 gm/cm2 with a T-score of -1.5 and a Z-score of -1.3. The BMD of the total left hip is 0.743 gm/cm2 with a T-score of -1.6 and a Z-score of -1.3. Impression: WHO Classification: Osteopenia with increased fracture risk based on lumbar spine measurements. WHO classification: Osteopenia with increased fracture risk based on left hip measurements. The FRAX 10 year fracture probability for a major osteoporotic fracture is 3.2%. The FRAX 10 year fracture probability for hip fracture is 0.3%. . Note:FRAX version 3.01. Fracture probability calculated for an untreated patient. Fracture probabilit y may be lower if the patient has received treatment. RECOMMENDATION: Clinical correlation and routine screening. Definitions: BMD = Bone Mineral Density T score = BMD related to mean peak bone mass of young adult (Johnson expressed an standard deviation) Z score = Age-matched BMD expressed in SD World health organization (WHO) diagnostic criteria: Normal: T score greater than -1 SD. Osteopenia: T score between - 1 SD and -2.4 SD. Osteoporosis: T score -2.5 SD or below Note: BMD is not the only risk factor for fracture; also consider factors such as the patient's age, risk of falling, previous osteoporotic fracture, family history of osteoporotic fractures, smoking st atus and low body weight. All treatment decisions require clinical judgment and consideration of individual patient factors inc luding patient preferences, comorbidities, previous drug use and risk factors not captured in the FRA X model (e.g. Frailty, falls, vitamin D deficiency, increased bone turnover, interval significant dec line in BMD). A more detailed DEXA Bone Densitometry report is available upon request. Signer Name: Rohan Waller MD Signed: 02/28/2019 2:19 PM Workstation Name: [id number]
== END 2019-02-27 14:20 | disposition home or self-care (01) ==
LOC: MAMMO 14:19
PROVIDERS: ATTEND Internal Medicine
DX: E05.90 Thyrotoxicosis, unspecified without thyrotoxic crisis or storm (principal)
CPT/HCPCS: 77080

== ENCOUNTER 2019-07-07 09:32 | Observation (INO) | payer BC ==
[2019-07-07 10:24] LABS: Basophils % (Auto) 0.8 % (0.0-1.8); Eosinophils # (Auto) 0.1 K/mm3 (0.0-0.4); Eosinophils % (Auto) 1.7 % (0.0-4.3); Lymphocytes # (Auto) 1.2 K/mm3 (1.2-5.4); Lymphocytes % (Auto) 32.1 % (13.4-35.0); Mean Corpuscular HGB Conc 33 % (30-34); Mean Corpuscular Volume 87 fl (79-97); Monocytes # (Auto) 0.3 K/mm3 (0.0-0.8); Monocytes % (Auto) 7.1 % (0.0-7.3); Platelet Count 122 K/mm3 (140-440); Red Blood Count 1.94 M/mm3 (3.65-5.03); Red Cell Distribution Width 19.2 % (13.2-15.2)
[2019-07-07 10:27] LABS: Hemoglobin 5.6 gm/dl (10.1-14.3)
[2019-07-07 10:46] LABS: Color,Urine Red (Yellow); RBC,Urine > 182.0 /HPF (0.0-6.0)
[2019-07-07 10:47] LABS: BUN/Creatinine Ratio 14; Blood Urea Nitrogen 10 mg/dL (7-17); Calcium 8.5 mg/dL (8.4-10.2); Hemolysis Index 0
[2019-07-07] MEDS ORDERED: SODIUM CHLORIDE 0.9% 500 ML 500 ML IV ONE ×2 (10:48→21:47)
[2019-07-07 10:51] LABS: Bilirubin,Urine TNR (Negative)
[2019-07-07 10:52] LABS: Blood,Urine TNR (Negative); PH,Urine TNR (5.0-7.0); Protein,Urine TNR mg/dL (Negative); Urobilinogen,Urine TNR mg/dL (<2.0)
[2019-07-07 10:56] LABS: Ictotest,Urine TNR (Negative)
--- NOTE | 2019-07-07 13:20 | Emergency Department Report ---
ED Recheck HPI - General Chief Complaint: Recheck/Abnormal Lab/Rx Stated Complaint: LOW HEMOGLOBIN Time Seen by Provider: 07/07/19 10:19 Source: patient Mode of arrival: Ambulatory Limitations: No Limitations - History of Present Illness Initial Comments: Patient is a 44-year-old female who is presenting with lightheadedness vaginal bleeding. Patient states that will she is been bleeding for approximately a week. Normally Provera does slow her down but it is not stopped her bleeding at this time. She is bleeding less now than she was initially however. Patient had blood work done yesterday and she was called by her PUMP TESTER to immediately go to the closest emergency department. Her hemoglobin was 5. Patient states she has no chest pain but does have some mild shortness of breath and fatigue. MD Complaint: abnormal lab - Related Data Home Medications Medication Instructions Recorded Confirmed Last Taken Ergocalciferol [Vitamin D2] 1 cap PO QWEEK 09/02/17 11/09/17 08/31/17 Previous Rx's Medication Instructions Recorded Last Taken Type ALPRAZolam [Xanax TAB] 0.25 mg PO DAILY #12 tablet 11/09/17 Unknown Rx Folic Acid [Folvite] 1 mg PO DAILY #30 tablet 11/09/17 Unknown Rx Multivitamin Tab W-MINERAL 1 each PO QDAY #30 tablet 11/09/17 Unknown Rx [Multiple Vitamin/Mineral (Theragran M)] Pregabalin [Lyrica] 100 mg PO TID #90 capsule 11/09/17 Unknown Rx QUEtiapine [SEROquel] 50 mg PO QHS #30 tablet 11/09/17 Unknown Rx oxyCODONE /ACETAMINOPHEN [Percocet 1 tab PO Q6H #12 tablet 11/09/17 Unknown Rx 5/325 mg] medroxyPROGESTERone ACETATE 10 mg PO QDAY #10 tablet 10/18/18 Unknown Rx [Provera] Ferrous Sulfate [Ferrous Sulfate 324 mg PO BID #30 tablet. 02/01/19 Unknown Rx 324 MG] Allergies Allergy/AdvReac Type Severity Reaction Status Date / Time No Known Allergies Allergy Verified 07/07/19 09:33 ED Review of Systems ROS: Stated complaint: LOW HEMOGLOBIN Other details as noted in HPI Comment: All other systems reviewed and negative ED Past Medical Hx - Past Medical History Hx Congestive Heart Failure: No Hx Diabetes: No Hx Asthma: Yes Hx COPD: No Hx HIV: No Additional medical history: pancreatisis. neuropathy. diverticulits. anemia. chrons - Social History Smoking Status: Never Smoker Substance Use Type: None - Medications Home Medications: Home Medications Medication Instructions Recorded Confirmed Last Taken Type Ergocalciferol [Vitamin D2] 1 cap PO QWEEK 09/02/17 11/09/17 08/31/17 History ALPRAZolam [Xanax TAB] 0.25 mg PO DAILY #12 tablet 11/09/17 Unknown Rx Folic Acid [Folvite] 1 mg PO DAILY #30 tablet 11/09/17 Unknown Rx Multivitamin Tab W-MINERAL 1 each PO QDAY #30 tablet 11/09/17 Unknown Rx [Multiple Vitamin/Mineral (Theragran M)] Pregabalin [Lyrica] 100 mg PO TID #90 capsule 11/09/17 Unknown Rx QUEtiapine [SEROquel] 50 mg PO QHS #30 tablet 11/09/17 Unknown Rx oxyCODONE /ACETAMINOPHEN [Percocet 1 tab PO Q6H #12 tablet 11/09/17 Unknown Rx 5/325 mg] medroxyPROGESTERone ACETATE 10 mg PO QDAY #10 tablet 10/18/18 Unknown Rx [Provera] Ferrous Sulfate [Ferrous Sulfate 324 mg PO BID #30 tablet. 02/01/19 Unknown Rx 324 MG] ED Physical Exam - General Limitations: No Limitations General appearance: alert, in no apparent distress - Head Head exam: Present: atraumatic, normocephalic - Eye Eye exam: Present: normal appearance - ENT ENT exam: Present: mucous membranes moist - Neck Neck exam: Present: normal inspection - Respiratory Respiratory exam: Present: normal lung sounds bilaterally. Absent: respiratory distress, wheezes, rales, rhonchi - Cardiovascular Cardiovascular Exam: Present: regular rate, normal rhythm. Absent: systolic murmur, diastolic murmur, rubs, gallop - GI/Abdominal GI/Abdominal exam: Present: soft, normal bowel sounds - Extremities Exam Extremities exam: Present: normal inspection - Back Exam Back exam: Present: normal inspection - Neurological Exam Neurological exam: Present: alert, oriented X3 - Psychiatric Psychiatric exam: Present: normal affect, normal mood - Skin Skin exam: Present: warm, dry, intact, normal color. Absent: rash ED Course Vital Signs 04/07/07/19 07/07/19 09:38 10:38 10:52 Temperature 98.7 F Pulse Rate 119 H 94 H Respiratory 20 16 18 Rate Blood Pressure 130/72 Blood Pressure 141/68 [Right] O2 Sat by Pulse 100 98 Oximetry 07/07/19 07/07/19 07/07/19 11:32 11:46 12:17 Temperature 99.3 F 98.6 F 98.2 F Pulse Rate 93 H 100 H 90 Respiratory 16 16 16 Rate Blood Pressure 141/78 119/62 103/62 Blood Pressure [Right] O2 Sat by Pulse 99 99 98 Oximetry ED Recheck MDM - Differential Diagnosis Admission for Abnormal La - Medical Decision Making Lab Results 07/07/19 07/07/19 07/07/19 Range/Units 09:55 09:58 10:00 WBC 3.6 L (4.5-11.0) K/mm3 RBC 1.94 L (3.65-5.03) M/mm3 Hgb 5.6 L* (10.1-14.3) gm/dl Hct 17.0 L* (30.3-42.9) % MCV 87 (79-97) fl MCH 29 (28-32) pg MCHC 33 (30-34) % RDW 19.2 H (13.2-15.2) % Plt Count 122 L (140-440) K/mm3 Lymph % (Auto) 32.1 (13.4-35.0) % Price % (Auto) 7.1 (0.0-7.3) % Eos % (Auto) 1.7 (0.0-4.3) % Baso % (Auto) 0.8 (0.0-1.8) % Lymph # 1.2 (1.2-5.4) K/mm3 Price # 0.3 (0.0-0.8) K/mm3 Eos # 0.1 (0.0-0.4) K/mm3 Baso # 0.0 (0.0-0.1) K/mm3 Seg Neutrophils % 58.3 (40.0-70.0) % Seg Neutrophils # 2.1 (1.8-7.7) K/mm3 Sodium (137-145) mmol/L Potassium (3.6-5.0) mmol/L Chloride (98-107) mmol/L Carbon Dioxide (22-30) mmol/L Anion Gap mmol/L BUN (7-17) mg/dL Creatinine (0.7-1.2) mg/dL Estimated GFR ml/min BUN/Creatinine Ratio % Glucose (65-100) mg/dL Calcium (8.4-10.2) mg/dL HCG, Qual (Negative) Urine Color Red (Yellow) Urine Turbidity Turbid (Clear) Urine pH TNR Ur Specific [place] TNR Urine Protein TNR Urine Glucose (UA) TNR Urine Ketones TNR Urine Blood TNR Urine Nitrite TNR Urine Bilirubin TNR Urine Ictotest TNR Urine Urobilinogen TNR Ur Leukocyte Esterase TNR Urine WBC (Auto) 42.0 H (0.0-6.0) /HPF Urine RBC (Auto) > 182.0 (0.0-6.0) /HPF Blood Type A POSITIVE Antibody Screen Negative Crossmatch See Detail 07/07/19 07/07/19 Range/Units 10:00 10:00 WBC (4.5-11.0) K/mm3 RBC (3.65-5.03) M/mm3 Hgb (10.1-14.3) gm/dl Hct (30.3-42.9) % MCV (79-97) fl MCH (28-32) pg MCHC (30-34) % RDW (13.2-15.2) % Plt Count (140-440) K/mm3 Lymph % (Auto) (13.4-35.0) % Price % (Auto) (0.0-7.3) % Eos % (Auto) (0.0-4.3) % Baso % (Auto) (0.0-1.8) % Lymph # (1.2-5.4) K/mm3 Price # (0.0-0.8) K/mm3 Eos # (0.0-0.4) K/mm3 Baso # (0.0-0.1) K/mm3 Seg Neutrophils % (40.0-70.0) % Seg Neutrophils # (1.8-7.7) K/mm3 Sodium 139 (137-145) mmol/L Potassium 3.3 L (3.6-5.0) mmol/L Chloride 107.8 H (98-107) mmol/L Carbon Dioxide 17 L (22-30) mmol/L Anion Gap 18 mmol/L BUN 10 (7-17) mg/dL Creatinine 0.7 (0.7-1.2) mg/dL Estimated GFR > 60 ml/min BUN/Creatinine Ratio 14 % Glucose 98 (65-100) mg/dL Calcium 8.5 (8.4-10.2) mg/dL HCG, Qual Negative (Negative) Urine Color (Yellow) Urine Turbidity (Clear) Urine pH Ur Specific [place] Urine Protein Urine Glucose (UA) Urine Ketones Urine Blood Urine Nitrite Urine Bilirubin Urine Ictotest Urine Urobilinogen Ur Leukocyte Esterase Urine WBC (Auto) (0.0-6.0) /HPF Urine RBC (Auto) (0.0-6.0) /HPF Blood Type Antibody Screen Crossmatch Patient's hemoglobin was 5.6. Patient will be admitted to the hospitalist service. Blood transfusion has been ordered. Critical care attestation.: If time is entered above; I have spent that time in minutes in the direct care of this critically ill patient, excluding procedure time. ED Disposition Clinical Impression: Severe anemia Disposition: DC-09 OP ADMIT IP TO THIS HOSP Is pt being admited?: Yes Does the pt Need Aspirin: No Condition: Stable Time of Disposition: 13:18
[2019-07-07] MEDS ORDERED: ALPRAZolam 0.5 MG TAB PO ONE (13:35)
[2019-07-07] MEDS ORDERED: ALPRAZolam 0.5 MG TAB ONE (13:46)
[2019-07-07] MEDS ORDERED: ONDANSETRON 4 MG/2 ML INJ IV PRN (21:46)
[2019-07-07] MEDS ORDERED: ACETAMINOPHEN 325 MG TAB PO PRN (21:46)
[2019-07-07] MEDS ORDERED: NON-FORMULARY EACH (Medroxyprogesterone Acetate [Provera] 10 MG) PO SCH (22:00)
[2019-07-07] MEDS ORDERED: NON-FORMULARY EACH (Ferrous Sulfate [Ferrous Sulfate 324 Mg] 324 MG) PO SCH (22:00)
[2019-07-07] MEDS: PREGABALIN 75 MG CAP PO SCH (23:29)
[2019-07-07] MEDS: FERROUS SULFATE 325 MG TAB PO SCH ×2 (23:30→23:34)
[2019-07-07] MEDS: FAMOTIDINE 20 MG/2 ML INJ IV SCH (23:30)
[2019-07-07] MEDS: QUEtiapine 25 MG TAB PO SCH (23:30)
[2019-07-07] MEDS: PREGABALIN 25 MG CAP PO SCH (23:30)
[2019-07-07] MEDS: HYDROmorphone 1 MG/1 ML INJ IV PRN (23:41)
[2019-07-08 04:34] LABS: Basophils % (Auto) 1.3 % (0.0-1.8); Eosinophils # (Auto) 0.1 K/mm3 (0.0-0.4); Eosinophils % (Auto) 4.9 % (0.0-4.3); Lymphocytes # (Auto) 1.4 K/mm3 (1.2-5.4); Lymphocytes % (Auto) 48.1 % (13.4-35.0); Mean Corpuscular HGB Conc 34 % (30-34); Mean Corpuscular Volume 86 fl (79-97); Monocytes # (Auto) 0.2 K/mm3 (0.0-0.8); Monocytes % (Auto) 5.9 % (0.0-7.3); Red Blood Count 2.27 M/mm3 (3.65-5.03); Red Cell Distribution Width 18.2 % (13.2-15.2)
[2019-07-08 04:38] LABS: Platelet Count 86 K/mm3 (140-440)
[2019-07-08 04:39] LABS: Hemoglobin 6.6 gm/dl (10.1-14.3)
[2019-07-08 04:40] LABS: Hematocrit 19.6 % (30.3-42.9)
[2019-07-08 04:55] LABS: Alanine Aminotransferase 16 units/L (7-56); Albumin 2.9 g/dL (3.9-5); BUN/Creatinine Ratio 18; Blood Urea Nitrogen 11 mg/dL (7-17); Calcium 7.9 mg/dL (8.4-10.2); Hemolysis Index 4
[2019-07-08] MEDS ORDERED: NON-FORMULARY EACH (Pregabalin [Lyrica] 100 MG) PO SCH (08:00)
[2019-07-08] MEDS: oxyCODONE /ACETAMINOPHEN 5-325MG TAB PO PRN ×2 (08:27→20:42)
[2019-07-08] MEDS: MULTIVITAMINS,THER W-MINERALS TAB PO SCH (09:04)
[2019-07-08] MEDS: PREGABALIN 25 MG CAP PO SCH ×3 (09:04→20:43)
[2019-07-08] MEDS: ALPRAZolam 0.25 MG TAB PO SCH (09:04)
[2019-07-08] MEDS: FAMOTIDINE 20 MG/2 ML INJ IV SCH ×2 (09:04→22:05)
[2019-07-08] MEDS: PREGABALIN 75 MG CAP PO SCH ×3 (09:04→20:43)
[2019-07-08] MEDS: FERROUS SULFATE 325 MG TAB PO SCH ×2 (09:05→22:03)
[2019-07-08] MEDS: FOLIC ACID 1 MG TAB PO SCH (09:05)
[2019-07-08 11:37] LABS: Hemoglobin 6.4 gm/dl (10.1-14.3)
[2019-07-08] MEDS ORDERED: SODIUM CHLORIDE 0.9% 500 ML 500 ML IV ONE (13:00)
--- NOTE | 2019-07-08 14:03 | Ultrasound Report ---
US pelvic complete INDICATION / CLINICAL INFORMATION: vaginal bleeding. COMPARISON: 10/18/2018 FINDINGS: The uterus measures 7.7 cm. The endometrial stripe thickness is 9 mm. 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 No uterine masses. A 2.4 cm complex right ovarian mass is demonstrated, new finding since the comparison study. A 12 mm left ovarian cyst is identified. There is minimal free fluid in the cul-de-sac. IMPRESSION: 1. 2.4 cm complex right ovarian cystic mass. Signer Name: Huseyin Jurado MD Signed: 07/08/2019 1:58 PM Workstation Name: [id number]
[2019-07-08] MEDS: medroxyPROGESTERone ACETATE 5 MG TAB PO SCH (15:21)
[2019-07-08] MEDS: HYDROmorphone 1 MG/1 ML INJ IV PRN (15:32)
--- NOTE | 2019-07-08 19:43 | History and Physical Report ---
History of Present Illness Date of examination: 07/07/19 Date of admission: 07/07/19 13:21 Chief complaint: Feeling weak and lightheaded. History of present illness: 44-year-old female who is presenting with lightheadedness vaginal bleeding. Patient states that will she is been bleeding for approximately a week. Normally Provera does slow her down but it is not stopped her bleeding at this time. She is bleeding less now than she was initially however. Patient had blood work done yesterday and she was called by her REFUND SPECIALIST to immediately go to the closest emergency department. Her hemoglobin was 5. Patient states she has no chest pain but does have some mild shortness of breath and fatigue. Past Medical History Asthma: Yes Additional medical history: pancreatisis. neuropathy. diverticulits. anemia. chrons Social History Smoking Status: Never Smoker Substance Use Type: Surgical history None Family history Htn Medications Home Medications: Home Medications Medication Instructions Recorded Confirmed Last Taken Type Ergocalciferol [Vitamin D2] 1 cap PO QWEEK 09/02/17 11/09/17 08/31/17 History ALPRAZolam [Xanax TAB] 0.25 mg PO DAILY #12 tablet 11/09/17 Unknown Rx Folic Acid [Folvite] 1 mg PO DAILY #30 tablet 11/09/17 Unknown Rx Multivitamin Tab W-MINERAL 1 each PO QDAY #30 tablet 11/09/17 Unknown Rx [Multiple Vitamin/Mineral (Theragran M)] Pregabalin [Lyrica] 100 mg PO TID #90 capsule 11/09/17 Unknown Rx QUEtiapine [SEROquel] 50 mg PO QHS #30 tablet 11/09/17 Unknown Rx oxyCODONE /ACETAMINOPHEN [Percocet 1 tab PO Q6H #12 tablet 11/09/17 Unknown Rx 5/325 mg] medroxyPROGESTERone ACETATE 10 mg PO QDAY #10 tablet 10/18/18 Unknown Rx [Provera] Ferrous Sulfate [Ferrous Sulfate 324 mg PO BID #30 tablet. 02/01/19 Unknown Rx 324 MG] Review of Systems ROS: Constitutional feels weak and lightheaded HEENT no sore throat no post nasal drip no diplopia Neck no neck stiffness no lymph gland enlargement Chest and lungs no shortness of breath cough or wheezing CVS no chest pain no diaphoresis no palpitations GI no nausea no vomiting no diarrhea Genitourinary system no dysuria no flank pain Musculoskeletal system no muscle pains no joint pains ASW/ASUW [employer] no syncope no seizures Skin no rash no itching Psychiatric no depression no homicidal or suicidal tendencies Hematologic no lymphedema or bruising Endocrine no polydipsia no polyuria no cold intolerance no heat intolerance Medications and Allergies Allergies Allergy/AdvReac Type Severity Reaction Status Date / Time No Known Allergies Allergy Verified 07/07/19 09:33 Home Medications Medication Instructions Recorded Confirmed Last Taken Type Ergocalciferol [Vitamin D2] 1 cap PO QWEEK 09/02/17 07/07/19 08/31/17 History ALPRAZolam [Xanax TAB] 0.25 mg PO DAILY #12 tablet 11/09/17 07/07/19 07/06/19 Rx Folic Acid [Folvite] 1 mg PO DAILY #30 tablet 11/09/17 07/07/19 Unknown Rx Multivitamin Tab W-MINERAL 1 each PO QDAY #30 tablet 11/09/17 07/07/19 Unknown Rx [Multiple Vitamin/Mineral (Theragran M)] Pregabalin [Lyrica] 100 mg PO TID #90 capsule 11/09/17 07/07/19 07/06/19 Rx QUEtiapine [SEROquel] 50 mg PO QHS #30 tablet 11/09/17 07/07/19 07/06/19 22:00 Rx oxyCODONE /ACETAMINOPHEN [Percocet 1 tab PO Q6H #12 tablet 11/09/17 07/07/19 Unknown Rx 5/325 mg] medroxyPROGESTERone ACETATE 10 mg PO QDAY #10 tablet 10/18/18 07/07/19 Unknown Rx [Provera] Ferrous Sulfate [Ferrous Sulfate 324 mg PO BID #30 tablet 02/01/19 07/07/19 Unknown Rx 324 MG] Active Meds: Active Medications Acetaminophen (Tylenol) 650 mg PO Q4H PRN PRN Reason: Pain MILD(1-3)/Fever >100.5/BERG Alprazolam (Xanax) 0.25 mg PO DAILY [facility] Last Admin: 07/08/19 09:04 Dose: 0.25 mg Documented by: Famotidine (Pepcid) 20 mg IV BID [facility] Last Admin: 07/08/19 09:04 Dose: 20 mg Documented by: Ferrous Sulfate (Feosol) 325 mg PO BID [facility] Last Admin: 07/08/19 09:05 Dose: Not Given Documented by: Folic Acid (Folvite) 1 mg PO DAILY [facility] Last Admin: 07/08/19 09:05 Dose: Not Given Documented by: Hydromorphone HCl (Dilaudid) 0.5 mg IV Q3H PRN PRN Reason: Pain , Severe (7-10) Last Admin: 07/08/19 15:32 Dose: 0.5 mg Documented by: Medroxyprogesterone Acetate (Provera) 10 mg PO QDAY [facility] Last Admin: 07/08/19 15:21 Dose: 10 mg Documented by: Multivitamins/Minerals (Theragran-M Tab) 1 each PO QDAY [facility] Last Admin: 07/08/19 09:04 Dose: 1 each Documented by: Ondansetron HCl (Zofran) 4 mg IV Q8H PRN PRN Reason: Nausea And Vomiting Oxycodone/Acetaminophen (Percocet 5/325) 1 tab PO Q6H PRN PRN Reason: Pain, Moderate (4-6) Last Admin: 07/08/19 08:27 Dose: 1 tab Documented by: Pregabalin (Pregabalin) 25 mg PO TID [facility] Last Admin: 07/08/19 15:20 Dose: 25 mg Documented by: Pregabalin (Pregabalin) 75 mg PO TID [facility] Last Admin: 07/08/19 15:20 Dose: 75 mg Documented by: Quetiapine Fumarate (Seroquel) 50 mg PO QHS [facility] Last Admin: 07/07/19 23:30 Dose: 50 mg Documented by: Sodium Chloride (Sodium Chloride Flush Syringe 10 Ml) 10 ml IV BID [facility] Last Admin: 07/08/19 09:05 Dose: 10 ml Documented by: Sodium Chloride (Sodium Chloride Flush Syringe 10 Ml) 10 ml IV PRN PRN PRN Reason: LINE FLUSH Exam - Constitutional Vitals: Temp Pulse Resp BP Pulse Ox 98.9 F 84 19 117/64 98 07/08/19 19:01 07/08/19 19:01 07/08/19 19:01 07/08/19 19:01 07/08/19 19:01 General appearance: Present: no acute distress, well-nourished - EENT Eyes: Present: PERRL ENT: hearing intact, clear oral mucosa, other (Pale mucous membranes) - Neck Neck: Present: supple, normal ROM - Respiratory Respiratory effort: normal Respiratory: bilateral: CTA - Cardiovascular Heart rate: 78 Rhythm: regular Heart Sounds: Present: S1 & S2. Absent: rub, click - Extremities Extremities: pulses symmetrical, No edema Peripheral Pulses: within normal limits - Abdominal General gastrointestinal: Present: soft, non-tender, non-distended, normal bowel sounds Female genitourinary: Present: normal - Integumentary Integumentary: Present: clear, warm, dry - Musculoskeletal Musculoskeletal: gait normal, strength equal bilaterally - Psychiatric Psychiatric: appropriate mood/affect, intact judgment & insight - Neurologic Neurologic: CNII-XII intact, moves all extremities KSENIA score - Ksenia Score Age > 65: (0) No Aspirin use within the Past 7 Days: (0) No 3 or more CAD Risk Factors: (0) No 2 or more Angina events in past 24 hrs: (0) No Known CAD with more than 50% Stenosis: (0) No Elevated Cardiac Markers: (0) No ST Deviation Greater than 0.5mm: (0) No KSENIA Score: 0 Results - Labs CBC & Chem 7: 07/08/19 11:20 07/08/19 04:14 Labs: Laboratory Last Values WBC 3.0 K/mm3 (4.5-11.0) L 07/08/19 04:14 RBC 2.27 M/mm3 (3.65-5.03) L 07/08/19 04:14 Hgb 6.4 gm/dl (10.1-14.3) L 07/08/19 11:20 Hct 19.0 % (30.3-42.9) L* 07/08/19 11:20 MCV 86 fl (79-97) 07/08/19 04:14 MCH 29 pg (28-32) 07/08/19 04:14 MCHC 34 % (30-34) 07/08/19 04:14 RDW 18.2 % (13.2-15.2) H 07/08/19 04:14 Plt Count 86 K/mm3 (140-440) L 07/08/19 04:14 Lymph % (Auto) 48.1 % (13.4-35.0) H 07/08/19 04:14 [place] % (Auto) 5.9 % (0.0-7.3) 07/08/19 04:14 Eos % (Auto) 4.9 % (0.0-4.3) H 07/08/19 04:14 Baso % (Auto) 1.3 % (0.0-1.8) 07/08/19 04:14 Lymph # 1.4 K/mm3 (1.2-5.4) 07/08/19 04:14 [place] # 0.2 K/mm3 (0.0-0.8) 07/08/19 04:14 Eos # 0.1 K/mm3 (0.0-0.4) 07/08/19 04:14 Baso # 0.0 K/mm3 (0.0-0.1) 07/08/19 04:14 Seg Neutrophils % 39.8 % (40.0-70.0) L 07/08/19 04:14 Seg Neutrophils # 1.2 K/mm3 (1.8-7.7) L 07/08/19 04:14 Sodium 138 mmol/L (137-145) 07/08/19 04:14 Potassium 3.7 mmol/L (3.6-5.0) 07/08/19 04:14 Chloride 107.9 mmol/L (98-107) H 07/08/19 04:14 Carbon Dioxide 22 mmol/L (22-30) 07/08/19 04:14 Anion Gap 12 mmol/L 07/08/19 04:14 BUN 11 mg/dL (7-17) 07/08/19 04:14 Creatinine 0.6 mg/dL (0.7-1.2) L 07/08/19 04:14 Estimated GFR > 60 ml/min 07/08/19 04:14 BUN/Creatinine Ratio 18 % 07/08/19 04:14 Glucose 84 mg/dL (65-100) 07/08/19 04:14 Calcium 7.9 mg/dL (8.4-10.2) L 07/08/19 04:14 Total Bilirubin 1.70 mg/dL (0.1-1.2) H 07/08/19 04:14 AST 34 units/L (5-40) 07/08/19 04:14 ALT 16 units/L (7-56) 07/08/19 04:14 Alkaline Phosphatase 44 units/L (35-129) 07/08/19 04:14 Total Protein 5.2 g/dL (6.3-8.2) L 07/08/19 04:14 Albumin 2.9 g/dL (3.9-5) L 07/08/19 04:14 Albumin/Globulin Ratio 1.3 % 07/08/19 04:14 HCG, Qual Negative (Negative) 07/07/19 10:00 Urine Color Red (Yellow) 07/07/19 09:55 Urine Turbidity Turbid (Clear) 07/07/19 09:55 Urine pH TNR 07/07/19 09:55 Ur Specific [place] TNR 07/07/19 09:55 Urine Protein TNR 07/07/19 09:55 Urine Glucose (UA) TNR 07/07/19 09:55 Urine Ketones TNR 07/07/19 09:55 Urine Blood TNR 07/07/19 09:55 Urine Nitrite TNR 07/07/19 09:55 Urine Bilirubin TNR 07/07/19 09:55 Urine Ictotest TNR 07/07/19 09:55 Urine Urobilinogen TNR 07/07/19 09:55 Ur Leukocyte Esterase TNR 07/07/19 09:55 Urine WBC (Auto) 42.0 /HPF (0.0-6.0) H 07/07/19 09:55 Urine RBC (Auto) > 182.0 /HPF (0.0-6.0) 07/07/19 09:55 Blood Type A POSITIVE 07/07/19 10:00 Antibody Screen Negative 07/07/19 10:00 Crossmatch See Detail 07/07/19 10:00 Short CBC 07/08/19 07/08/19 Range/Units 04:14 11:20 WBC 3.0 L (4.5-11.0) K/mm3 Hgb 6.6 L 6.4 L (10.1-14.3) gm/dl Hct 19.6 L* 19.0 L* (30.3-42.9) % Plt Count 86 L (140-440) K/mm3 BMP 07/08/19 04:14 Sodium 138 Potassium 3.7 Chloride 107.9 H Carbon Dioxide 22 BUN 11 Creatinine 0.6 L Glucose 84 Calcium 7.9 L Liver Function 07/08/19 Range/Units 04:14 Total Bilirubin 1.70 H (0.1-1.2) mg/dL AST 34 (5-40) units/L ALT 16 (7-56) units/L Alkaline Phosphatase 44 (35-129) units/L Albumin 2.9 L (3.9-5) g/dL Microbiology: Microbiology 07/07/19 09:55 Urine,Clean Catch Urine Culture - Preliminary [place]/IV: Voiding Method Toilet IV Catheter Type [Left Hand] INT / Saline Lock IV Catheter Type [Right Wrist] Peripheral IV Assessment and Plan Advance Directives: Yes (Full code) VTE prophylaxis?: Chemical Plan of care discussed with patient/family: Yes - Patient Problems (1) Acute blood loss anemia Current Visit: No Status: Acute Plan to address problem: Secondary to blood loss from vaginal bleeding Transfuse 2 to 3 units of packed red blood cells (2) Menorrhagia Current Visit: Yes Status: Acute Qualifiers: Menorrhagia type: with irregular cycle Qualified Code(s): N92.1 - Excessive and frequent menstruation with irregular cycle Plan to address problem: Patient on Provera (3) Generalized anxiety disorder Current Visit: Yes Status: Acute Plan to address problem: Continue Xanax (4) Vitamin D deficiency Current Visit: Yes Status: Acute Plan to address problem: Continue vitamin D q. weekly (5) Peripheral neuropathy Current Visit: Yes Status: Chronic Qualifiers: Peripheral neuropathy type: polyneuropathy, unspecified Qualified Code(s): G62.9 - Polyneuropathy, unspecified Plan to address problem: Continue gabapentin (6) Depression Current Visit: Yes Status: Chronic Qualifiers: Depression Type: unspecified Qualified Code(s): F32.9 - Major depressive disorder, single episode, unspecified Plan to address problem: On Seroquel (7) DVT prophylaxis Current Visit: Yes Status: Acute Plan to address problem: On heparin and GI prophylaxis
--- NOTE | 2019-07-08 19:50 | Progress Note ---
Assessment and Plan - Patient Problems (1) Acute blood loss anemia Current Visit: No Status: Acute Plan to address problem: Secondary to blood loss from vaginal bleeding Transfuse 2 to 3 units of packed red blood cells (2) Menorrhagia Current Visit: Yes Status: Acute Qualifiers: Menorrhagia type: with irregular cycle Qualified Code(s): N92.1 - Excessive and frequent menstruation with irregular cycle Plan to address problem: Patient on Provera (3) Generalized anxiety disorder Current Visit: Yes Status: Acute Plan to address problem: Continue Xanax (4) Vitamin D deficiency Current Visit: Yes Status: Acute Plan to address problem: Continue vitamin D q. weekly (5) Peripheral neuropathy Current Visit: Yes Status: Chronic Qualifiers: Peripheral neuropathy type: polyneuropathy, unspecified Qualified Code(s): G62.9 - Polyneuropathy, unspecified Plan to address problem: Continue gabapentin (6) Depression Current Visit: Yes Status: Chronic Qualifiers: Depression Type: unspecified Qualified Code(s): F32.9 - Major depressive disorder, single episode, unspecified Plan to address problem: On Seroquel (7) UTI (urinary tract infection) Current Visit: No Status: Acute Qualifiers: Urinary tract infection type: site unspecified Hematuria presence: without hematuria Qualified Code(s): N39.0 - Urinary tract infection, site not specified Plan to address problem: On Rocephin (8) DVT prophylaxis Current Visit: Yes Status: Acute Plan to address problem: On heparin and GI prophylaxis Subjective Date of service: 07/08/19 Principal diagnosis: Blood loss anemia Interval history: Symptomatically better Objective - Constitutional Vitals: Vital Signs - 12hr 07/08/19 07/08/19 07/08/19 09:27 12:44 14:00 Temperature 98.4 F Pulse Rate 80 Respiratory 18 18 Rate Respiratory 18 Rate [Abdomen] Respiratory 18 Rate [Lower Leg ] Respiratory 18 Rate [Right Abdomen] Blood Pressure 98/52 O2 Sat by Pulse 100 Oximetry 07/08/19 07/08/19 07/08/19 15:53 16:02 16:08 Temperature 97.7 F 98.0 F Pulse Rate 78 78 Respiratory 18 19 19 Rate Respiratory Rate [Abdomen] Respiratory Rate [Lower Leg ] Respiratory Rate [Right Abdomen] Blood Pressure 100/60 112/72 O2 Sat by Pulse 95 99 Oximetry 04/07/08/19 07/08/19 16:38 17:08 17:38 Temperature 98.7 F 98.7 F 98.3 F Pulse Rate 82 80 78 Respiratory 19 18 19 Rate Respiratory Rate [Abdomen] Respiratory Rate [Lower Leg ] Respiratory Rate [Right Abdomen] Blood Pressure 122/68 110/79 113/65 O2 Sat by Pulse 100 11 L 100 Oximetry 07/08/19 07/08/19 07/08/19 18:08 18:38 19:01 Temperature 98.3 F 98.4 F 98.9 F Pulse Rate 78 76 84 Respiratory 19 19 19 Rate Respiratory Rate [Abdomen] Respiratory Rate [Lower Leg ] Respiratory Rate [Right Abdomen] Blood Pressure 113/65 114/70 117/64 O2 Sat by Pulse 100 100 98 Oximetry General appearance: Present: no acute distress, well-nourished - EENT Eyes: PERRL, EOM intact ENT: hearing intact, clear oral mucosa Ears: bilateral: normal - Neck Neck: supple, normal ROM - Respiratory Respiratory effort: normal Respiratory: bilateral: CTA - Breasts Breasts: normal - Cardiovascular Heart rate: 78 Rhythm: regular Heart Sounds: Present: S1 & S2. Absent: gallop, rub Extremities: no ischemia, pulses intact, No edema, normal color, Full ROM - Gastrointestinal General gastrointestinal: Present: soft, non-tender, non-distended, normal bowel sounds - Genitourinary Female genitourinary: normal - Integumentary Integumentary: clear, warm, dry - Musculoskeletal Musculoskeletal: 1, strength equal bilaterally - Neurologic Neurologic: moves all extremities - Psychiatric Psychiatric: memory intact, appropriate mood/affect, intact judgment & insight - Labs CBC & Chem 7: 07/08/19 11:20 07/08/19 04:14 Labs: Abnormal lab results 07/07/19 07/08/19 07/08/19 Range/Units 10:00 04:14 04:14 WBC 3.0 L (4.5-11.0) K/mm3 RBC 2.27 L (3.65-5.03) M/mm3 Hgb 6.6 L (10.1-14.3) gm/dl Hct 19.6 L* (30.3-42.9) % RDW 18.2 H (13.2-15.2) % Plt Count 86 L (140-440) K/mm3 Lymph % (Auto) 48.1 H (13.4-35.0) % Eos % (Auto) 4.9 H (0.0-4.3) % Seg Neutrophils % 39.8 L (40.0-70.0) % Seg Neutrophils # 1.2 L (1.8-7.7) K/mm3 Chloride 107.9 H (98-107) mmol/L Creatinine 0.6 L (0.7-1.2) mg/dL Calcium 7.9 L (8.4-10.2) mg/dL Total Bilirubin 1.70 H (0.1-1.2) mg/dL Total Protein 5.2 L (6.3-8.2) g/dL Albumin 2.9 L (3.9-5) g/dL Crossmatch See Detail 07/08/19 Range/Units 11:20 WBC (4.5-11.0) K/mm3 RBC (3.65-5.03) M/mm3 Hgb 6.4 L (10.1-14.3) gm/dl Hct 19.0 L* (30.3-42.9) % RDW (13.2-15.2) % Plt Count (140-440) K/mm3 Lymph % (Auto) (13.4-35.0) % Eos % (Auto) (0.0-4.3) % Seg Neutrophils % (40.0-70.0) % Seg Neutrophils # (1.8-7.7) K/mm3 Chloride (98-107) mmol/L Creatinine (0.7-1.2) mg/dL Calcium (8.4-10.2) mg/dL Total Bilirubin (0.1-1.2) mg/dL Total Protein (6.3-8.2) g/dL Albumin (3.9-5) g/dL Crossmatch
--- NOTE | 2019-07-08 19:50 | Discharge Summary ---
Providers - Providers Date of Admission: 07/07/19 13:21 Date of discharge: 07/08/19 Attending physician: MARYCHUY NUNEZ [facility] Condition: Stable Pertinent studies: Pelvic ultrasound--- right ovarian cystic mass Hospital course: Patient was transfused 2 units of blood and was given Rocephin for urinary tract infection Patient has right ovarian cystic mass she needs follow-up with [employer] COUN[employer] for evaluation of the right ovarian cystic mass (1) Acute blood loss anemia Current Visit: No Status: Acute Plan to address problem: Secondary to blood loss from vaginal bleeding Transfuse 2 to 3 units of packed red blood cells (2) Menorrhagia Current Visit: Yes Status: Acute Qualifiers: Menorrhagia type: with irregular cycle Qualified Code(s): N92.1 - Excessive and frequent menstruation with irregular cycle Plan to address problem: Patient on Provera (3) Generalized anxiety disorder Current Visit: Yes Status: Acute Plan to address problem: Continue Xanax (4) Vitamin D deficiency Current Visit: Yes Status: Acute Plan to address problem: Continue vitamin D q. weekly (5) Peripheral neuropathy Current Visit: Yes Status: Chronic Qualifiers: Peripheral neuropathy type: polyneuropathy, unspecified Qualified Code(s): G62.9 - Polyneuropathy, unspecified Plan to address problem: Continue gabapentin (6) Depression Current Visit: Yes Status: Chronic Qualifiers: Depression Type: unspecified Qualified Code(s): F32.9 - Major depressive disorder, single episode, unspecified Plan to address problem: On Seroquel (7) UTI (urinary tract infection) Current Visit: No Status: Acute Qualifiers: Urinary tract infection type: site unspecified Hematuria presence: without hematuria Qualified Code(s): N39.0 - Urinary tract infection, site not specified Plan to address problem: On Rocephin Disposition: -01 TO HOME OR SELFCARE Core Measure Documentation - Palliative Care Palliative Care/ Comfort Measures: Not Applicable - Core Measures Any of the following diagnoses?: none Exam - Constitutional Vitals: Temp Pulse Resp BP Pulse Ox 98.9 F 84 19 117/64 98 07/08/19 19:01 07/08/19 19:01 07/08/19 19:01 07/08/19 19:01 07/08/19 19:01 General appearance: Present: no acute distress, well-nourished - EENT Eyes: Present: PERRL ENT: hearing intact, clear oral mucosa - Neck Neck: Present: supple, normal ROM - Respiratory Respiratory effort: normal Respiratory: bilateral: CTA - Cardiovascular Heart Sounds: Present: S1 & S2. Absent: rub, click - Extremities Extremities: pulses symmetrical, No edema Peripheral Pulses: within normal limits - Abdominal General gastrointestinal: Present: soft, non-tender, non-distended, normal bowel sounds Female genitourinary: Present: normal - Integumentary Integumentary: Present: clear, warm, dry - Musculoskeletal Musculoskeletal: gait normal, strength equal bilaterally - Psychiatric Psychiatric: appropriate mood/affect, intact judgment & insight - Neurologic Neurologic: CNII-XII intact, moves all extremities Plan Activity: no restrictions Diet: regular Follow up with: FREYA COX MD [Primary Care Provider] - 7 Days
[2019-07-08] MEDS: QUEtiapine 25 MG TAB PO SCH ×2 (20:44→22:03)
[2019-07-08 21:05] LABS: Hematocrit 23.8 % (30.3-42.9)
[2019-07-09 07:45] VITALS: BP 133/64
[2019-07-09] MEDS: PREGABALIN 75 MG CAP PO SCH (08:58)
[2019-07-09] MEDS: PREGABALIN 25 MG CAP PO SCH (08:58)
[2019-07-09] MEDS: FOLIC ACID 1 MG TAB PO SCH (08:59)
[2019-07-09] MEDS: MULTIVITAMINS,THER W-MINERALS TAB PO SCH (08:59)
[2019-07-09] MEDS: medroxyPROGESTERone ACETATE 5 MG TAB PO SCH (08:59)
[2019-07-09] MEDS: FERROUS SULFATE 325 MG TAB PO SCH (08:59)
[2019-07-09] MEDS: ALPRAZolam 0.25 MG TAB PO SCH (08:59)
[2019-07-09] MEDS ORDERED: FAMOTIDINE 20 MG TAB PO SCH (10:00)
--- NOTE | 2019-07-10 21:19 | Ultrasound Report ---
US TRANSVAGINAL INDICATION / CLINICAL INFORMATION: VAGINAL BLEEDING. Please see combined report from the same date; ultrasound pelvic complete dictated by Dr. Huseyin Jurado . Signer Name: Roly Gonzales MD Signed: 07/10/2019 9:15 PM Workstation Name: [id number]
== END 2019-07-09 10:15 | disposition home or self-care (01) ==
LOC: ED 09:32 → 2B-ACE 13:21
PROVIDERS: ADMIT Internal Medicine; ATTEND Internal Medicine
DX: D62 Acute posthemorrhagic anemia (principal); R42 Dizziness and giddiness; N92.1 Excessive and frequent menstruation with irregular cycle; F41.1 Generalized anxiety disorder; E55.9 Vitamin D deficiency, unspecified; F32.9 Major depressive disorder, single episode, unspecified; G62.9 Polyneuropathy, unspecified; N39.0 Urinary tract infection, site not specified; Z79.899 Other long term (current) drug therapy; Z88.8 Allergy status to other drugs, medicaments and biological substances
CPT/HCPCS: 36415; 36430; 76830; 76856; 80048; 80053; 81001; 84703; 85014; 85018; 85025; 86850; 86900; 86901; 86920; 87086; 96361; 96374; 96375; 96376; 99285; G0378; J1170; J7040; P9016

== ENCOUNTER 2019-07-12 01:08 | Inpatient (IN) | payer BC ==
--- NOTE | 2019-07-12 02:09 | Emergency Department Report ---
ED General Adult HPI - General Chief complaint: Vaginal Bleeding Stated complaint: CONFUSION Time Seen by Provider: 07/12/19 02:03 Source: patient Mode of arrival: Ambulatory Limitations: No Limitations - History of Present Illness Initial comments: Patient is a 44-year-old female that presents emergency room with complaints of confusion. Patient states she woke up this morning confused. Patient states that she was recently had a family gathering and 1 of the people there recently tested positive for COVID. Patient states she was also recently here for anemia and required a blood transfusion on July 07, 2019. Patient states that she is having difficulty remembering things. Patient states she is not acting right. Patient states she is also yelling at her children. Patient states she is not able to remember simple things like her phone password and telephone numbers. Patient also complaining of lower abdominal pain and hematuria. Patient states she does not feel feverish but when she got here they told her she had a fever. Patient denies cough. Patient denies shortness of breath. Patient states she has been having dysfunctional vaginal bleeding. Patient states her vaginal bleeding is been going on for couple weeks -: Sudden - Related Data Home Medications Medication Instructions Recorded Confirmed Last Taken Ergocalciferol [Vitamin D2] 1 cap PO QWEEK 09/02/17 07/07/19 08/31/17 Previous Rx's Medication Instructions Recorded Last Taken Type ALPRAZolam [Xanax TAB] 0.25 mg PO DAILY #12 tablet 11/09/17 07/06/19 Rx Folic Acid [Folvite] 1 mg PO DAILY #30 tablet 11/09/17 Unknown Rx Multivitamin Tab W-MINERAL 1 each PO QDAY #30 tablet 11/09/17 Unknown Rx [Multiple Vitamin/Mineral (Theragran M)] oxyCODONE /ACETAMINOPHEN [Percocet 1 tab PO Q6H #12 tablet 11/09/17 Unknown Rx 5/325 mg] Ferrous Sulfate [Ferrous Sulfate 324 mg PO BID #30 mike. 02/01/19 Unknown Rx 324 MG] Iron Carb,Gl/FA/B12/C/Docusate 1 each PO QDAY 30 Days #30 tablet 07/08/19 Unknown Rx [Ferralet 90 Dual-Iron Tablet] Pregabalin 25 mg PO TID capsule 07/08/19 Unknown Rx QUEtiapine [SEROquel] 50 mg PO QHS tablet 07/08/19 Unknown Rx medroxyPROGESTERone ACETATE 10 mg PO QDAY #5 tablet 07/08/19 Unknown Rx [Provera] oxyCODONE /ACETAMINOPHEN [Percocet 1 tab PO Q8H PRN #16 tablet 07/08/19 Unknown Rx 5/325 mg] oxyCODONE /ACETAMINOPHEN [Percocet 1 tab PO Q12H #12 tab 07/08/19 Unknown Rx 5/325] Allergies Allergy/AdvReac Type Severity Reaction Status Date / Time No Known Allergies Allergy Verified 07/07/19 09:33 ED Review of Systems ROS: Stated complaint: CONFUSION Other details as noted in HPI Constitutional: denies: chills, fever Eyes: denies: eye pain, eye discharge, vision change ENT: denies: ear pain, throat pain Respiratory: denies: cough, shortness of breath, wheezing Cardiovascular: denies: chest pain, palpitations Endocrine: no symptoms reported Gastrointestinal: abdominal pain. denies: nausea, diarrhea Genitourinary: hematuria. denies: urgency, dysuria, discharge Musculoskeletal: denies: back pain, joint swelling, arthralgia Skin: denies: rash, lesions Neurological: denies: headache, weakness, paresthesias Psychiatric: denies: anxiety, depression Hematological/Lymphatic: denies: easy bleeding, easy bruising ED Past Medical Hx - Past Medical History Previous Medical History?: Yes Hx Congestive Heart Failure: No Hx Diabetes: No Hx Asthma: Yes Hx COPD: No Hx HIV: No Additional medical history: pancreatisis. neuropathy. diverticulits. anemia. chrons. fibroid mylgia - Surgical History Past Surgical History?: No - Family History Family history: no significant - Social History Smoking Status: Never Smoker Substance Use Type: None - Medications Home Medications: Home Medications Medication Instructions Recorded Confirmed Last Taken Type Ergocalciferol [Vitamin D2] 1 cap PO QWEEK 09/02/17 07/07/19 08/31/17 History ALPRAZolam [Xanax TAB] 0.25 mg PO DAILY #12 tablet 11/09/17 07/07/19 07/06/19 Rx Folic Acid [Folvite] 1 mg PO DAILY #30 tablet 11/09/17 07/07/19 Unknown Rx Multivitamin Tab W-MINERAL 1 each PO QDAY #30 tablet 11/09/17 07/07/19 Unknown Rx [Multiple Vitamin/Mineral (Theragran M)] oxyCODONE /ACETAMINOPHEN [Percocet 1 tab PO Q6H #12 tablet 11/09/17 07/07/19 Unknown Rx 5/325 mg] Ferrous Sulfate [Ferrous Sulfate 324 mg PO BID #30 tablet. 02/01/19 07/07/19 Unknown Rx 324 MG] Iron Carb,Gl/FA/B12/C/Docusate 1 each PO QDAY 30 Days #30 tablet 07/08/19 Unknown Rx [Ferralet 90 Dual-Iron Tablet] Pregabalin 25 mg PO TID capsule 07/08/19 Unknown Rx QUEtiapine [SEROquel] 50 mg PO QHS tablet 07/08/19 Unknown Rx medroxyPROGESTERone ACETATE 10 mg PO QDAY #5 tablet 07/08/19 Unknown Rx [Provera] oxyCODONE /ACETAMINOPHEN [Percocet 1 tab PO Q8H PRN #16 tablet 07/08/19 Unknown Rx 5/325 mg] oxyCODONE /ACETAMINOPHEN [Percocet 1 tab PO Q12H #12 tab 07/08/19 Unknown Rx 5/325] ED Physical Exam - General Limitations: No Limitations General appearance: alert, in no apparent distress - Head Head exam: Present: atraumatic, normocephalic - Eye Eye exam: Present: normal appearance - ENT ENT exam: Present: mucous membranes moist - Neck Neck exam: Present: normal inspection - Respiratory Respiratory exam: Present: normal lung sounds bilaterally. Absent: respiratory distress - Cardiovascular Cardiovascular Exam: Present: regular rate, normal rhythm. Absent: systolic murmur, diastolic murmur, rubs, gallop - GI/Abdominal GI/Abdominal exam: Present: soft, normal bowel sounds - Extremities Exam Extremities exam: Present: normal inspection - Back Exam Back exam: Present: normal inspection - Neurological Exam Neurological exam: Present: alert, oriented X3 - Psychiatric Psychiatric exam: Present: normal affect, normal mood - Skin Skin exam: Present: warm, dry, intact, normal color. Absent: rash ED Course Vital Signs 07/12/19 07/12/19 07/12/19 01:17 01:46 01:54 Temperature 98.8 F Pulse Rate 121 H 109 H Respiratory 18 14 20 Rate Blood Pressure 151/94 137/83 O2 Sat by Pulse 100 100 99 Oximetry 07/12/19 07/12/19 07/12/19 02:00 02:16 02:30 Temperature Pulse Rate 104 H 92 H 94 H Respiratory 15 13 19 Rate Blood Pressure 142/72 142/72 137/65 O2 Sat by Pulse 100 99 100 Oximetry 07/12/19 07/12/19 07/12/19 03:16 03:30 04:00 Temperature Pulse Rate 87 86 89 Respiratory 10 L 15 13 Rate Blood Pressure 132/68 134/90 123/71 O2 Sat by Pulse 100 100 100 Oximetry 07/12/19 04:32 Temperature Pulse Rate Respiratory Rate Blood Pressure 152/78 O2 Sat by Pulse 99 Oximetry - Reevaluation(s) Reevaluation #1: I discussed all results with patient. I discussed plan of care with patient. Patient agrees with plan of care and admission. Patient to be admitted to the hospitalist service. 07/12/19 04:28 - Consultations Consultation #1: I discussed case with Dr. Mcknight. Dr. Mcknight recommends HIDA scan and admission to the hospitalist service and he will see the patient in the morning. 07/12/19 04:25 Consultation #2: Hospitalist consulted for admission. Hospitalist to admit patient. 07/12/19 04:26 Consultation #3: LEGAL INTERN consult placed 07/12/19 04:40 ED Medical Decision Making - Lab Data Result diagrams: 07/12/19 01:55 07/12/19 02:07 - Radiology Data Radiology results: report reviewed, image reviewed interpreted by me: CHEST 1 VIEW 0318 INDICATION / CLINICAL INFORMATION: Fever, confusion, nausea, vomiting, dizziness. COMPARISON: 02/01/2019 FINDINGS: SUPPORT DEVICES: None HEART / MEDIASTINUM: No significant abnormality. LUNGS / PLEURA: Artifact overlies the images and the patient is rotated. Apices are not fully included. No areas of consolidation are seen. No definite acute infiltrates are identified. No pneumothorax. ADDITIONAL FINDINGS: No significant additional findings. IMPRESSION: No significant acute abnormality CT ABDOMEN AND PELVIS WITHOUT CONTRAST INDICATION: RENAL STONE PROTOCOL!!! Pt complains of fever and hematuria. CONTRAST: Without IV COMPARISON: 05/13/[address] scans at this location are performed using CT dose reduction for ALARA by means of automated exposure control. FINDINGS: Lung bases are clear. No pneumoperitoneum is seen. No significant abdominal wall herniation is noted. No lymphadenopathy is seen. Minimal free fluid is seen in the pelvis which is nonspecific. Fatty infiltration of the liver is again though is mildly less obvious. Borderline hepatomegaly is seen with the hepatic length measures 17.5 cm. This is markedly improved from the 29th 0.1 cm previously. Spleen is also enlarged and has a length of 17.5 cm compared to 17.4 cm previously. No focal masses are obvious in the liver or spleen on this noncontrast study. Gallbladder shows a small calculus and there is now moderate gallbladder wall edema not seen previously. No biliary dilatation is seen. Pancreas shows no acute abnormalities. No evidence of bowel obstruction is seen. Appendix appears within normal limits. Colonic diverticulosis is noted without evidence of diverticulitis. Mild bilateral nephrolithiasis is seen without obstructive change noted. No ureteral calculi or dilatation are seen. Urinary bladder shows no abnormalities. An IUD is seen in the uterine fundus and one limb appears to extend well into the left cornual region. On today's examination this limb may be extending at least to the level of the outer surface of the uterus if not slightly beyond. No obvious acute change is seen. A minimal left ovarian cyst probably is functional. Tortuous vascularity in the posterior pelvis is again noted. IMPRESSION: 1. Probable mild acute cholecystitis 2. Mild bilateral nephrolithiasis without acute change seen 3. Improvement in hepatomegaly and fatty infiltration. Continued splenomegaly. 4. Note position of the IUD is above, possibly penetrating to at least the outer surface of the uterus. CT HEAD WITHOUT CONTRAST INDICATION: Confusion No Trauma. TECHNIQUE: All CT scans at this location are performed using CT dose reduction for ALARA by means of automated exposure control. COMPARISON: None available. FINDINGS: BRAIN: No hemorrhage or mass effect are seen. No evidence of acute infarction is noted. ORBITS: Normal as visualized. SOFT TISSUES OF HEAD: Normal. CALVARIUM: Normal. VISUALIZED PARANASAL SINUSES AND MASTOID AIR CELLS: Clear. ADDITIONAL FINDINGS: None. IMPRESSION: No acute intracranial abnormality. - Medical Decision Making Patient is a 44-year-old female that presents emergency room with complaints of abdominal pain, vaginal bleeding, hematuria, confusion and altered mental status. Patient had labs done which showed anemia, Hypokalemia. Patient is status post transfusion on July 07, 2019. Patient had a CT of the abdomen done which shows acute cholecystitis. General surgery consulted. Patient also found to have bilateral kidney stones. Patient admitted to the hospitalist service. Patient's head CT was negative. Patient chest x-ray negative. - Differential Diagnosis Vaginal bleed, hematuria, abdominal pain, fever, confusion, ams Critical Care Time: Yes Critical care time in (mins) excluding proc time.: 35 Critical care attestation.: If time is entered above; I have spent that time in minutes in the direct care of this critically ill patient, excluding procedure time. Critical Care Time: 35 minutes ED Disposition Clinical Impression: Acute cholecystitis, Confusion, Hypokalemia, Vaginal bleeding Fever Qualifiers: Fever type: unspecified Qualified Code(s): R50.9 - Fever, unspecified Abdominal pain Qualifiers: Abdominal location: lower abdomen, unspecified Qualified Code(s): R10.30 - Lower abdominal pain, unspecified Hematuria Qualifiers: Hematuria type: gross Qualified Code(s): R31.0 - Gross hematuria Anemia Qualifiers: Anemia type: unspecified type Qualified Code(s): D64.9 - Anemia, unspecified Altered mental state Qualifiers: Altered mental status type: unspecified Qualified Code(s): R41.82 - Altered mental status, unspecified Disposition: DC-09 OP ADMIT IP TO THIS HOSP Is pt being admited?: Yes Does the pt Need Aspirin: No Condition: Critical Referrals: HOANG DIAMOND MD [Primary Care Provider] - 3-5 Days Time of Disposition: 04:29
[2019-07-12] MEDS ORDERED: SODIUM CHLORIDE 0.9% 1000 ML 1,000 ML IV ONE (02:10)
[2019-07-12 02:20] LABS: Basophils # (Auto) 0.1 K/mm3 (0.0-0.1); Basophils % (Auto) 0.7 % (0.0-1.8); Eosinophils # (Auto) 0.1 K/mm3 (0.0-0.4); Eosinophils % (Auto) 1.7 % (0.0-4.3); Hematocrit 25.9 % (30.3-42.9); Hemoglobin 8.7 gm/dl (10.1-14.3); Lymphocytes # (Auto) 2.3 K/mm3 (1.2-5.4); Lymphocytes % (Auto) 27.8 % (13.4-35.0); Mean Corpuscular HGB Conc 33 % (30-34); Mean Corpuscular Volume 88 fl (79-97); Monocytes # (Auto) 0.5 K/mm3 (0.0-0.8); Monocytes % (Auto) 5.7 % (0.0-7.3); Platelet Count 148 K/mm3 (140-440); Red Blood Count 2.96 M/mm3 (3.65-5.03); Red Cell Distribution Width 18.4 % (13.2-15.2)
[2019-07-12 02:37] LABS: Alanine Aminotransferase 21 units/L (7-56); Albumin 3.7 g/dL (3.9-5); BUN/Creatinine Ratio 16; Blood Urea Nitrogen 13 mg/dL (7-17); Hemolysis Index 0
[2019-07-12 02:50] LABS: Bilirubin,Urine NEG (Negative); Color,Urine Yellow (Yellow)
[2019-07-12 02:51] LABS: Blood,Urine LG (Negative); Mucus,Urine FEW /HPF; Protein,Urine <15 mg/dL mg/dL (Negative); Urobilinogen,Urine < 2.0 mg/dL (<2.0)
[2019-07-12 02:55] LABS: RBC,Urine > 182.0 /HPF (0.0-6.0)
--- NOTE | 2019-07-12 03:28 | Cat Scan Report ---
CT HEAD WITHOUT CONTRAST INDICATION: Confusion No Trauma. TECHNIQUE: All CT scans at this location are performed using CT dose reduction for ALARA by means of automated exposure control. COMPARISON: None available. FINDINGS: BRAIN: No hemorrhage or mass effect are seen. No evidence of acute infarction is noted. ORBITS: Normal as visualized. SOFT TISSUES OF HEAD: Normal. CALVARIUM: Normal. VISUALIZED PARANASAL SINUSES AND MASTOID AIR CELLS: Clear. ADDITIONAL FINDINGS: None. IMPRESSION: No acute intracranial abnormality. Signer Name: Dejuan Almendarez MD Signed: 07/12/2019 3:24 AM Workstation Name: [email or web address]
--- NOTE | 2019-07-12 03:38 | Cat Scan Report ---
CT ABDOMEN AND PELVIS WITHOUT CONTRAST INDICATION: RENAL STONE PROTOCOL!!! Pt complains of fever and hematuria. CONTRAST: Without IV COMPARISON: 05/13/[address] scans at this location are performed using CT dose reduction for ALARA by means of automated e xposure control. FINDINGS: Lung bases are clear. No pneumoperitoneum is seen. No significant abdominal wall herniation is noted. No lymphadenopathy is seen. Minimal free fluid is seen in the pelvis which is nonspecific. Fatty infiltration of the liver is again though is mildly less obvious. Borderline hepatomegaly is s een with the hepatic length measures 17.5 cm. This is markedly improved from the 29th 0.[address] Spleen is also enlarged and has a length of 17.5 cm compared to 17.4 cm previously. No focal mass es are obvious in the liver or spleen on this noncontrast study. Gallbladder shows a small calculus a nd there is now moderate gallbladder wall edema not seen previously. No biliary dilatation is seen. P ancreas shows no acute abnormalities. No evidence of bowel obstruction is seen. Appendix appears with in normal limits. Colonic diverticulosis is noted without evidence of diverticulitis. Mild bilateral nephrolithiasis is seen without obstructive change noted. No ureteral calculi or dilat ation are seen. Urinary bladder shows no abnormalities. An IUD is seen in the uterine fundus and one limb appears to extend well into the left cornual region . On today's examination this limb may be extending at least to the level of the outer surface of the uterus if not slightly beyond. No obvious acute change is seen. A minimal left ovarian cyst probably is functional. Tortuous vascularity in the posterior pelvis is again noted. IMPRESSION: 1. Probable mild acute cholecystitis 2. Mild bilateral nephrolithiasis without acute change seen 3. Improvement in hepatomegaly and fatty infiltration. Continued splenomegaly. 4. Note position of the IUD is above, possibly penetrating to at least the outer surface of the uteru s. Signer Name: Dejuan Almendarez MD Signed: 07/12/2019 3:34 AM Workstation Name: [email or web address]
--- NOTE | 2019-07-12 03:54 | XRay Report ---
CHEST 1 VIEW 0318 INDICATION / CLINICAL INFORMATION: Fever, confusion, nausea, vomiting, dizziness. COMPARISON: 02/01/2019 FINDINGS: SUPPORT DEVICES: None HEART / MEDIASTINUM: No significant abnormality. LUNGS / PLEURA: Artifact overlies the images and the patient is rotated. Apices are not fully include d. No areas of consolidation are seen. No definite acute infiltrates are identified. No pneumothorax. ADDITIONAL FINDINGS: No significant additional findings. IMPRESSION: No significant acute abnormality Signer Name: Dejuan Almendarez MD Signed: 07/12/2019 3:50 AM Workstation Name: [id number]
[2019-07-12] MEDS ORDERED: POTASSIUM CHLORIDE 20 MEQ 20 MEQ/100 ML BAG IV SCH (05:00)
[2019-07-12] MEDS ORDERED: ONDANSETRON 4 MG/2 ML INJ IV PRN (05:22)
[2019-07-12] MEDS ORDERED: ACETAMINOPHEN 325 MG TAB PO PRN (05:27)
[2019-07-12] MEDS ORDERED: POTASSIUM CHLORIDE 10 MEQ 10 MEQ/100 ML BAG IV ONE (05:34)
[2019-07-12] MEDS ORDERED: SODIUM CHLORIDE 0.9% 1000 ML 1,000 ML ONE (05:36)
[2019-07-12] MEDS ORDERED: PIPERACILLIN/TAZOBACTAM 3.375 3.375 GM/50 ML BAG IV SCH (06:00)
[2019-07-12] MEDS: PIPERACIL/TAZOBACTA 4.5/NS 100 4.5 GM/100 ML VIAL IV SCH ×3 (06:15→23:05)
[2019-07-12] MEDS: POTASSIUM CHLORIDE 10 MEQ 10 MEQ/100 ML BAG IV SCH ×4 (06:42→12:44)
--- NOTE | 2019-07-12 06:42 | History and Physical Report ---
History of Present Illness Date of examination: 07/12/19 Date of admission: 07/12/19 Chief complaint: Chief complaint is confusion and other complaint include fever, hematuria and right upper quadrant abdominal pain History of present illness: History of present illness, patient is a 44-year-old female who was noted by family members to be confused yesterday 07/11/2019, family said that patient was yelling at her children and did not remember what she was doing on activities around her. There was history of hematuria, right upper quadrant abdominal pain and fever. Patient had blood transfusion about 4 to 5 days ago following anemia there was no history of shortness of breath ,cough or body aches, patient started to remember activities around her after staying for some time in the emergency room Past History Past Medical History: anemia, other (NEUROPATHY,DIVERTICULITIS, ASTHMA) Past Surgical History: No surgical history Social history: no significant social history Family history: no significant family history Medications and Allergies Allergies Allergy/AdvReac Type Severity Reaction Status Date / Time No Known Allergies Allergy Verified 07/07/19 09:33 Home Medications Medication Instructions Recorded Confirmed Last Taken Type Ergocalciferol [Vitamin D2] 1 cap PO QWEEK 09/02/17 07/07/19 08/31/17 History ALPRAZolam [Xanax TAB] 0.25 mg PO DAILY #12 tablet 11/09/17 07/07/19 07/06/19 Rx Folic Acid [Folvite] 1 mg PO DAILY #30 tablet 11/09/17 07/07/19 Unknown Rx Multivitamin Tab W-MINERAL 1 each PO QDAY #30 tablet 11/09/17 07/07/19 Unknown Rx [Multiple Vitamin/Mineral (Theragran M)] oxyCODONE /ACETAMINOPHEN [Percocet 1 tab PO Q6H #12 tablet 11/09/17 07/07/19 Unknown Rx 5/325 mg] Ferrous Sulfate [Ferrous Sulfate 324 mg PO BID #30 tablet. 02/01/19 07/07/19 Unknown Rx 324 MG] Iron Carb,Gl/FA/B12/C/Docusate 1 each PO QDAY 30 Days #30 tablet 07/08/19 Unknown Rx [Ferralet 90 Dual-Iron Tablet] Pregabalin 25 mg PO TID capsule 07/08/19 Unknown Rx QUEtiapine [SEROquel] 50 mg PO QHS tablet 07/08/19 Unknown Rx medroxyPROGESTERone ACETATE 10 mg PO QDAY #5 tablet 07/08/19 Unknown Rx [Provera] oxyCODONE /ACETAMINOPHEN [Percocet 1 tab PO Q8H PRN #16 tablet 07/08/19 Unknown Rx 5/325 mg] oxyCODONE /ACETAMINOPHEN [Percocet 1 tab PO Q12H #12 tab 07/08/19 Unknown Rx 5/325] Active Meds: Active Medications Acetaminophen (Tylenol) 650 mg PO Q4H PRN PRN Reason: Fever >101 Hydromorphone HCl (Dilaudid) 0.5 mg IV Q4H PRN PRN Reason: Pain , Severe (7-10) Metronidazole (Flagyl 500 Mg/100 Ml) 500 mg in 100 mls @ 100 mls/hr IV Q8HR SUE; Protocol Potassium Chloride (Kcl 10meq/100ml) 10 meq in 100 mls @ 100 mls/hr IV Q1H SUE Stop: 07/12/19 09:59 Piperacillin Sod/Tazobactam Sod (Zosyn/Ns 4.5gm/100ml) 4.5 gm in 100 mls @ 200 mls/hr IV Q8HR SUE; Protocol Last Admin: 07/12/19 06:15 Dose: 200 mls/hr Documented by: Ondansetron HCl (Zofran) 4 mg IV Q6H PRN PRN Reason: Nausea And Vomiting Review of Systems Constitutional: no weight loss, no weight gain, no anorexia, no fatigue, no weakness, no malaise Eyes: bilateral: other (NO BILATERAL EYE SYMPTOMS) Ears, nose, mouth and throat: no ear pain, no decreased hearing, no nasal congestion, no nasal discharge, no sinus pressure, no dysphagia, no hoarseness, no swelling in mouth, no headache, no vertigo, no neck fullness/pressure Breasts: deferred Cardiovascular: no chest pain, no edema, no syncope, no lightheadedness, no shortness of breath, no dyspnea on exertion, no paroxysmal nocturnal dyspnea, no high blood pressure, no leg edema Respiratory: no cough, no excessive sputum, no shortness of breath, no andrzej estion, no wheezing, no pleurisy, no pain on inspiration, no sleep apnea, no respiratory infections, no home oxygen Gastrointestinal: abdominal pain, no nausea, no vomiting, no diarrhea, no constipation, no change in bowel habits, no melena, no loss of appetite, no jaundice, no early satiety Genitourinary Female: flank pain, hematuria, no dyspareunia, no dysmenorrhea, no vaginal itching, no vaginal discharge Menstruation: menses variable Rectal: no pain, no bleeding, no hemorrhoids Musculoskeletal: no neck stiffness, no muscle cramps, no loss of height Integumentary: no rash, no pruritis, no wounds, no jaundice, no lesions, no depigmentation, no acne, no dryness, no color changes, no change in hair/nails, no brittle nails, no striae, no hirsutism, no foot/leg ulcers Neurological: lack of coordination, change in mentation, confusion, no head injury, no weakness, no syncope, no tremors, no headaches, no migraines, no convulsions, no gait dysfunction, no motor disturbance, no sensory deficit, no double vision, no loss of vision, no hearing difficulties, no paralysis, no spasticity Psychiatric: memory loss, confusion, no anxiety, no hypersomnia, no change in appetite, no anxiety attacks, no difficulties concentrating Endocrine: no cold intolerance, no polyphagia, no polydipsia, no polyuria, no nocturia, no excessive sweating, no deepening of the voice, no thyroid mass, no palpatations, no high blood sugars, no low blood sugars Hematologic/Lymphatic: no lymphadenopathy, no lymphedema Allergic/Immunologic: no urticaria, no persistent infections, no angioedema, no gluten intolerance, no seasonal allergies Exam - Constitutional Vitals: Temp Pulse Resp BP Pulse Ox 98.1 F 86 18 113/69 99 07/12/19 06:28 07/12/19 06:28 07/12/19 06:28 07/12/19 06:28 07/12/19 06:28 General appearance: Present: no acute distress. Absent: mild distress, severe distress, disheveled - EENT Eyes: Present: PERRL, EOM intact ENT: hearing intact - Neck Neck: Present: supple, normal ROM. Absent: enlarged thyroid, carotid bruits - Respiratory Respiratory effort: normal - Cardiovascular Rhythm: regular Heart Sounds: Present: S1 & S2. Absent: systolic murmur, diastolic murmur - Extremities Extremities: no ischemia, No edema Peripheral Pulses: within normal limits - Abdominal General gastrointestinal: Present: soft, tender, non-distended, normal bowel sounds. Absent: non-tender, distended, rigid, hypoactive bowel sounds, absent bowel sounds, hepatomegaly, splenomegaly, mass, hernia - Rectal Rectal Exam: deferred - Integumentary Integumentary: Present: clear, warm. Absent: dry, jaundice, clammy, normal turgor - Musculoskeletal Musculoskeletal: strength equal bilaterally - Psychiatric Psychiatric: depressed MOE score - Moe Score Age > 65: (0) No Aspirin use within the Past 7 Days: (0) No 3 or more CAD Risk Factors: (0) No 2 or more Angina events in past 24 hrs: (0) No Known CAD with more than 50% Stenosis: (0) No Elevated Cardiac Markers: (0) No ST Deviation Greater than 0.5mm: (0) No MOE Score: 0 Results - Labs CBC & Chem 7: 07/12/19 01:55 07/12/19 02:07 Labs: Laboratory Last Values WBC 8.2 K/mm3 (4.5-11.0) 07/12/19 01:55 RBC 2.96 M/mm3 (3.65-5.03) L 07/12/19 01:55 Hgb 8.7 gm/dl (10.1-14.3) L 07/12/19 01:55 Hct 25.9 % (30.3-42.9) L 07/12/19 01:55 MCV 88 fl (79-97) 07/12/19 01:55 MCH 29 pg (28-32) 07/12/19 01:55 MCHC 33 % (30-34) 07/12/19 01:55 RDW 18.4 % (13.2-15.2) H 07/12/19 01:55 Plt Count 148 K/mm3 (140-440) 07/12/19 01:55 Lymph % (Auto) 27.8 % (13.4-35.0) 07/12/19 01:55 Snyder % (Auto) 5.7 % (0.0-7.3) 07/12/19 01:55 Eos % (Auto) 1.7 % (0.0-4.3) 07/12/19 01:55 Baso % (Auto) 0.7 % (0.0-1.8) 07/12/19 01:55 Lymph # 2.3 K/mm3 (1.2-5.4) 07/12/19 01:55 Snyder # 0.5 K/mm3 (0.0-0.8) 07/12/19 01:55 Eos # 0.1 K/mm3 (0.0-0.4) 07/12/19 01:55 Baso # 0.1 K/mm3 (0.0-0.1) 07/12/19 01:55 Seg Neutrophils % 64.1 % (40.0-70.0) 07/12/19 01:55 Seg Neutrophils # 5.3 K/mm3 (1.8-7.7) 07/12/19 01:55 Sodium 139 mmol/L (137-145) 07/12/19 02:07 Potassium 2.4 mmol/L (3.6-5.0) L* D 07/12/19 02:07 Chloride 102.2 mmol/L (98-107) 07/12/19 02:07 Carbon Dioxide 24 mmol/L (22-30) 07/12/19 02:07 Anion Gap 15 mmol/L 07/12/19 02:07 BUN 13 mg/dL (7-17) 07/12/19 02:07 Creatinine 0.8 mg/dL (0.7-1.2) 07/12/19 02:07 Estimated GFR > 60 ml/min 07/12/19 02:07 BUN/Creatinine Ratio 16 % 07/12/19 02:07 Glucose 121 mg/dL (65-100) H 07/12/19 02:07 Calcium 9.0 mg/dL (8.4-10.2) 07/12/19 02:07 Total Bilirubin 1.90 mg/dL (0.1-1.2) H 07/12/19 02:07 AST 43 units/L (5-40) H 07/12/19 02:07 ALT 21 units/L (7-56) 07/12/19 02:07 Alkaline Phosphatase 49 units/L (35-129) 07/12/19 02:07 Total Protein 6.4 g/dL (6.3-8.2) D 07/12/19 02:07 Albumin 3.7 g/dL (3.9-5) L 07/12/19 02:07 Albumin/Globulin Ratio 1.4 % 07/12/19 02:07 HCG, Qual Negative (Negative) 07/12/19 01:55 Urine Color Yellow (Yellow) 07/12/19 02:17 Urine Turbidity Slightly-cloudy (Clear) 07/12/19 02:17 Urine pH 6.0 (5.0-7.0) 07/12/19 02:17 Ur Specific [place] 1.006 (1.003-1.030) 07/12/19 02:17 Urine Protein <15 mg/dl mg/dL (Negative) 07/12/19 02:17 Urine Glucose (UA) Neg mg/dL (Negative) 07/12/19 02:17 Urine Ketones Neg mg/dL (Negative) 07/12/19 02:17 Urine Blood Lg (Negative) 07/12/19 02:17 Urine Nitrite Neg (Negative) 07/12/19 02:17 Urine Bilirubin Neg (Negative) 07/12/19 02:17 Urine Urobilinogen < 2.0 mg/dL (<2.0) 07/12/19 02:17 Ur Leukocyte Esterase Neg (Negative) 07/12/19 02:17 Urine WBC (Auto) 3.0 /HPF (0.0-6.0) 07/12/19 02:17 Urine RBC (Auto) > 182.0 /HPF (0.0-6.0) 07/12/19 02:17 Urine Mucus Few /HPF 07/12/19 02:17 Influenza A (Rapid) Negative (Negative) 07/12/19 03:20 Influenza B (Rapid) Negative (Negative) 07/12/19 03:20 Group A Strep Rapid Negative (Negative) 07/12/19 03:20 Payne/IV: IV Catheter Type [Right Hand] INT / Saline Lock IV Catheter Type [Left Forearm INT / Saline Lock ] Assessment and Plan - Patient Problems (1) Abdominal pain Current Visit: Yes Status: Acute Qualifiers: Abdominal location: lower abdomen, unspecified Qualified Code(s): R10.30 - Lower abdominal pain, unspecified (2) Acute cholecystitis Current Visit: Yes Status: Acute Plan to address problem: 1. Patient will be admitted to telemetry as inpatient and will continue surgical consult with Dr. Roxanna 2. Patient will have neurology consult with Dr. ARYAN GALEANO because of altered mental status 3 also patient will continue gynecological consult as ordered by the emergency room physician for possible vaginal bleeding.. 4. Patient will need urology consult when available because of bilateral kidney stone with hematuria 5 patient will be on IV Zosyn 3.375 g every 8 hours and also will be on IV metronidazole 500 mg every 8 hours 6 patient will be on IV Dilaudid 0.5 mg every 4 hours as needed for pain and IV Zofran 4 mg every 6 hours for nausea and vomiting 7 patient will be on Tylenol 650 mg by mouth every 4 hours for fever and headache (3) Anemia Current Visit: Yes Status: Acute Qualifiers: Anemia type: unspecified type Qualified Code(s): D64.9 - Anemia, unspecified (4) Confusion Current Visit: Yes Status: Acute (5) Hematuria Current Visit: Yes Status: Acute Qualifiers: Hematuria type: gross Qualified Code(s): R31.0 - Gross hematuria (6) Hypokalemia Current Visit: Yes Status: Acute
[2019-07-12] MEDS: metroNIDAZOLE/NS 500 MG/100 ML 500 MG/100 ML BAG IV SCH ×3 (07:03→22:18)
[2019-07-12] MEDS ORDERED: HYDROmorphone 1 MG/1 ML INJ ONE (07:53)
[2019-07-12] MEDS ORDERED: POTASSIUM CHLORIDE ER 20 MEQ TAB PO ONE ×2 (08:00→13:00)
[2019-07-12] MEDS: HYDROmorphone 1 MG/1 ML INJ IV PRN ×2 (08:04→11:20)
--- NOTE | 2019-07-12 10:52 | Nuclear Medicine Report ---
HEPATOBILIARY SCINTIGRAPHY (HIDA) HISTORY: Abdominal pain. COMPARISON: Same day CT abdomen and pelvis without contrast. TECHNIQUE: Radiopharmaceutical was administered intravenously. Sequential imaging of the upper abdom en was performed. RADIOPHARMACEUTICAL: 5.5 mCi Tc-99m Choletec Additional Medication(s): None. FINDINGS: Liver: No significant abnormality. Gallbladder: Normal gallbladder filling within 20 minutes. Small bowel: No small bowel activity within 2 hours. Additional Findings: None. IMPRESSION: 1. No acute cholecystitis based on gallbladder filling within 20 minutes. 2. Absence of small bowel activity within 2 hours is consistent with gallbladder dyskinesis. Signer Name: Rohan Waller MD Signed: 07/12/2019 10:47 AM Workstation Name: [id number]
--- NOTE | 2019-07-12 11:25 | Consultation ---
History of Present Illness Consult date: 07/12/19 Reason for consult: other (abnormal CT) Requesting physician: VANDANA CANNON III Chief complaint: confusion - History of present illness History of present illness: 44yo F with multiple medical problems presents to the emergency room due to feelings of "confusion". During her work-up a CT scan of the abdomen was performed. There was suggestion of acute cholecystitis. Therefore, general surgery was consulted. Patient confirmed that she is here due to "not feeling right" and "confusion". Denies any pain in the right upper quadrant or postprandial pain. Patient does report she has had a problem with alcoholism in the past. She stopped drinking 3 years ago. This was attributed to her because of the enlarged liver and spleen that were noted on CT. Her main complaint is difficulties with insurance approving the care that she requires. She feels as though she has many problems that have not been fully evaluated or treated due to impediments by insurance. Past History Past Medical History: anemia, other (NEUROPATHY,DIVERTICULITIS, ASTHMA, h/o pancreatitis, possible h/o Crohns disease) Past Surgical History: No surgical history Social history: no significant social history. denies: smoking, alcohol abuse (Did have alcoholism problem prior to 3 years ago), prescription drug abuse, IV drug use Family history: no significant family history Medications and Allergies Allergies Allergy/AdvReac Type Severity Reaction Status Date / Time No Known Allergies Allergy Verified 07/07/19 09:33 Home Medications Medication Instructions Recorded Confirmed Last Taken Type Ergocalciferol [Vitamin D2] 1 cap PO QWEEK 09/02/17 07/07/19 08/31/17 History ALPRAZolam [Xanax TAB] 0.25 mg PO DAILY #12 tablet 11/09/17 07/07/19 07/06/19 Rx Folic Acid [Folvite] 1 mg PO DAILY #30 tablet 11/09/17 07/07/19 Unknown Rx Multivitamin Tab W-MINERAL 1 each PO QDAY #30 tablet 11/09/17 07/07/19 Unknown Rx [Multiple Vitamin/Mineral (Theragran M)] oxyCODONE /ACETAMINOPHEN [Percocet 1 tab PO Q6H #12 tablet 11/09/17 07/07/19 Unknown Rx 5/325 mg] Ferrous Sulfate [Ferrous Sulfate 324 mg PO BID #30 tablet. 02/01/19 07/07/19 Unknown Rx 324 MG] Iron Carb,Gl/FA/B12/C/Docusate 1 each PO QDAY 30 Days #30 tablet 07/08/19 Unknown Rx [Ferralet 90 Dual-Iron Tablet] Pregabalin 25 mg PO TID capsule 07/08/19 Unknown Rx QUEtiapine [SEROquel] 50 mg PO QHS tablet 07/08/19 Unknown Rx medroxyPROGESTERone ACETATE 10 mg PO QDAY #5 tablet 07/08/19 Unknown Rx [Provera] oxyCODONE /ACETAMINOPHEN [Percocet 1 tab PO Q8H PRN #16 tablet 07/08/19 Unknown Rx 5/325 mg] oxyCODONE /ACETAMINOPHEN [Percocet 1 tab PO Q12H #12 tab 07/08/19 Unknown Rx 5/325] Active Meds: Active Medications Acetaminophen (Tylenol) 650 mg PO Q4H PRN PRN Reason: Fever >101 Hydromorphone HCl (Dilaudid) 0.5 mg IV Q4H PRN PRN Reason: Pain , Severe (7-10) Last Admin: 07/12/19 08:04 Dose: 0.5 mg Documented by: Metronidazole (Flagyl 500 Mg/100 Ml) 500 mg in 100 mls @ 100 mls/hr IV Q8HR SUE; Protocol Last Admin: 07/12/19 07:03 Dose: 100 mls/hr Documented by: Piperacillin Sod/Tazobactam Sod (Zosyn/Ns 4.5gm/100ml) 4.5 gm in 100 mls @ 200 mls/hr IV Q8HR SUE; Protocol Last Admin: 07/12/19 06:15 Dose: 200 mls/hr Documented by: Ondansetron HCl (Zofran) 4 mg IV Q6H PRN PRN Reason: Nausea And Vomiting Review of Systems - Constitutional fatigue, weakness, poor appetite, no fever, no chills - Cardiovascular no chest pain, no shortness of breath - Respiratory no cough - Gastrointestinal abdominal pain (lower abdomen), no nausea, no vomiting, no change in bowel habits, no hematemesis, no coffee ground emesis, no BRBPR, no melena, no hematochezia - Genitourinary Menstruation: other (heavy vaginal bleeding) - Neurological confusion - Psychiatric anxiety, disorientation, difficulties concentrating, confusion Exam Vital Signs Temp Pulse Resp BP Pulse Ox 98.8 F 121 H 18 151/94 100 07/12/19 01:17 07/12/19 01:17 07/12/19 01:17 07/12/19 01:17 07/12/19 01:17 - General physical appearance Positive: no distress, no pain, other (emotional. began crying during interview) - Eyes Positive: normal occular movement. Negative: icteric - Respiratory Positive: normal expansion, normal respiratory effort - Abdomen Abdomen: Present: soft. Absent: tender, distended, guarding, rigid - Integumentary no rash, no growths, no abnormal pigmentation - Neurologic Neurologic: alert and oriented to time, place and person - Psychiatric Psychiatric: appropriate mood/affect, cooperative Results - Labs 07/12/19 01:55 07/12/19 02:07 Abnormal lab results 07/12/19 07/12/19 Range/Units 01:55 02:07 RBC 2.96 L (3.65-5.03) M/mm3 Hgb 8.7 L (10.1-14.3) gm/dl Hct 25.9 L (30.3-42.9) % RDW 18.4 H (13.2-15.2) % Potassium 2.4 L* D (3.6-5.0) mmol/L Glucose 121 H (65-100) mg/dL Total Bilirubin 1.90 H (0.1-1.2) mg/dL AST 43 H (5-40) units/L Albumin 3.7 L (3.9-5) g/dL Diabetes panel 07/12/19 Range/Units 02:07 Sodium 139 (137-145) mmol/L Potassium 2.4 L* D (3.6-5.0) mmol/L Chloride 102.2 (98-107) mmol/L Carbon Dioxide 24 (22-30) mmol/L BUN 13 (7-17) mg/dL Creatinine 0.8 (0.7-1.2) mg/dL Glucose 121 H (65-100) mg/dL Calcium 9.0 (8.4-10.2) mg/dL AST 43 H (5-40) units/L ALT 21 (7-56) units/L Alkaline Phosphatase 49 (35-129) units/L Total Protein 6.4 D (6.3-8.2) g/dL Albumin 3.7 L (3.9-5) g/dL Calcium panel 07/12/19 Range/Units 02:07 Calcium 9.0 (8.4-10.2) mg/dL Albumin 3.7 L (3.9-5) g/dL Pituitary panel 07/12/19 Range/Units 02:07 Sodium 139 (137-145) mmol/L Potassium 2.4 L* D (3.6-5.0) mmol/L Chloride 102.2 (98-107) mmol/L Carbon Dioxide 24 (22-30) mmol/L BUN 13 (7-17) mg/dL Creatinine 0.8 (0.7-1.2) mg/dL Glucose 121 H (65-100) mg/dL Calcium 9.0 (8.4-10.2) mg/dL Adrenal panel 07/12/19 Range/Units 02:07 Sodium 139 (137-145) mmol/L Potassium 2.4 L* D (3.6-5.0) mmol/L Chloride 102.2 (98-107) mmol/L Carbon Dioxide 24 (22-30) mmol/L BUN 13 (7-17) mg/dL Creatinine 0.8 (0.7-1.2) mg/dL Glucose 121 H (65-100) mg/dL Calcium 9.0 (8.4-10.2) mg/dL Total Bilirubin 1.90 H (0.1-1.2) mg/dL AST 43 H (5-40) units/L ALT 21 (7-56) units/L Alkaline Phosphatase 49 (35-129) units/L Total Protein 6.4 D (6.3-8.2) g/dL Albumin 3.7 L (3.9-5) g/dL - Imaging CT scan - abdomen: report reviewed, image reviewed CT scan - pelvis: report reviewed, image reviewed Additional studies: HIDA report and images reviewed Assessment and Plan - Patient Problems (1) Abnormal CT of the abdomen Current Visit: Yes Status: Acute Plan to address problem: Patient stable. HIDA scan clearly shows there is no evidence of acute cholec ystitis. Clinically patient does not have symptoms or signs consistent with cholecystitis. Abnormal LFTs could be attributed to her hepatomegaly secondary to her old alcoholism history. Patient does not even give history that could fit postprandial pain that might go along with the suggestion of dyskinesia on the HIDA scan. At this point, I do not recommend cholecystectomy during this admission or even as an outpatient. She does not have signs and symptoms consistent with acute cholecystitis or biliary dyskinesia. Please call with questions. time=30min
[2019-07-12] MEDS ORDERED: SODIUM CHLORIDE 0.9% 500 ML 500 ML IV ONE (12:00)
--- NOTE | 2019-07-12 12:12 | Event Note ---
Date: 07/12/19 Patient was admitted early this morning with acute abdominal pain Surgery evaluate the patient no evidence of acute cholecystitis, signed off Pending BIN FILLER evaluation. Inpatient versus outpatient DC n.p.o. start regular diet as tolerated Continue current management Work-up so far; CT abdomen and pelvis; probable mild acute cholecystitis, bilateral nephrolithiasis without acute changes IUD possibly penetrating to at least the outer surface of the uterus. Hepatobiliary scan; no acute cholecystitis based on gallbladder filling within 20 minutes, gallbladder dyskinesia CT head without contrast; no acute abnormality Chest x-ray no acute abnormality
--- NOTE | 2019-07-12 14:30 | Consultation ---
Past History Past Medical History: anemia, other (NEUROPATHY,DIVERTICULITIS, ASTHMA, h/o pancreatitis, possible h/o Crohns disease) Past Surgical History: No surgical history Social history: no significant social history. denies: smoking, alcohol abuse (Did have alcoholism problem prior to 3 years ago), prescription drug abuse, IV drug use Family history: no significant family history Medications and Allergies Allergies Allergy/AdvReac Type Severity Reaction Status Date / Time No Known Allergies Allergy Verified 07/07/19 09:33 Home Medications Medication Instructions Recorded Confirmed Last Taken Type Ergocalciferol [Vitamin D2] 1 cap PO QWEEK 09/02/17 07/07/19 08/31/17 History ALPRAZolam [Xanax TAB] 0.25 mg PO DAILY #12 tablet 11/09/17 07/07/19 07/06/19 Rx Folic Acid [Folvite] 1 mg PO DAILY #30 tablet 11/09/17 07/07/19 Unknown Rx Multivitamin Tab W-MINERAL 1 each PO QDAY #30 tablet 11/09/17 07/07/19 Unknown Rx [Multiple Vitamin/Mineral (Theragran M)] oxyCODONE /ACETAMINOPHEN [Percocet 1 tab PO Q6H #12 tablet 11/09/17 07/07/19 Unknown Rx 5/325 mg] Ferrous Sulfate [Ferrous Sulfate 324 mg PO BID #30 tablet. 02/01/19 07/07/19 Unknown Rx 324 MG] Iron Carb,Gl/FA/B12/C/Docusate 1 each PO QDAY 30 Days #30 tablet 07/08/19 Unknown Rx [Ferralet 90 Dual-Iron Tablet] Pregabalin 25 mg PO TID capsule 07/08/19 Unknown Rx QUEtiapine [SEROquel] 50 mg PO QHS tablet 07/08/19 Unknown Rx medroxyPROGESTERone ACETATE 10 mg PO QDAY #5 tablet 07/08/19 Unknown Rx [Provera] oxyCODONE /ACETAMINOPHEN [Percocet 1 tab PO Q8H PRN #16 tablet 07/08/19 Unknown Rx 5/325 mg] oxyCODONE /ACETAMINOPHEN [Percocet 1 tab PO Q12H #12 tab 07/08/19 Unknown Rx 5/325] Active Meds: Active Medications Acetaminophen (Tylenol) 650 mg PO Q4H PRN PRN Reason: Fever >101 Hydromorphone HCl (Dilaudid) 0.5 mg IV Q4H PRN PRN Reason: Pain , Severe (7-10) Last Admin: 07/12/19 11:20 Dose: 0.5 mg Documented by: Metronidazole (Flagyl 500 Mg/100 Ml) 500 mg in 100 mls @ 100 mls/hr IV Q8HR SUE; Protocol Last Admin: 07/12/19 07:03 Dose: 100 mls/hr Documented by: Piperacillin Sod/Tazobactam Sod (Zosyn/Ns 4.5gm/100ml) 4.5 gm in 100 mls @ 200 mls/hr IV Q8HR SUE; Protocol Last Admin: 07/12/19 06:15 Dose: 200 mls/hr Documented by: Ondansetron HCl (Zofran) 4 mg IV Q6H PRN PRN Reason: Nausea And Vomiting Physical Examination - Vital Signs Vital Signs: Vital Signs Temp Pulse Resp BP Pulse Ox 98.8 F 121 H 18 151/94 100 07/12/19 01:17 07/12/19 01:17 07/12/19 01:17 07/12/19 01:17 07/12/19 01:17 Results - Laboratory Findings CBC and BMP: 07/12/19 01:55 07/12/19 14:07 Abnormal Lab Findings: Abnormal Labs 07/12/19 07/12/19 07/12/19 01:55 02:07 11:47 RBC 2.96 L Hgb 8.7 L Hct 25.9 L RDW 18.4 H Potassium 2.4 L* D Glucose 121 H POC Glucose 108 H Total Bilirubin 1.90 H AST 43 H Albumin 3.7 L Assessment and Plan 44 YR OLD FEMALE WHO IS FROM THE AND LIVES WITH HER TWO CHILDREN AND 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 THE REASON FOR THIS ER VISIT WA S DUE TO AN EPISODE OF FREAKING OUT AT HER CHILDREN ON WAKING UP IN THE MORNING AT 10.00AM WHICH SHE DOES NOT REMEMBER. PATIENT STATES THAT SHE NEVER FREAKS OUT AT HER CHILDREN. PATIENT ALSO HAS HISTORY OF PROFUSE MENSTRUAL BLEEDING CONTRIBUTING TO HER ANAEMIA. HER HEMOGLOBIN AT PRESENT IS 8.7. SHE ALSO HAS HISTORY OF INSOMNIA FOR WHICH SHE IS ON QUETIAPINE 25 MG AT BED TIME. PATIENT HAD COMPLAIN OF ABDOMINAL PAIN AND WORK UP WITH CT SCAN OF THE ABDOMEN SHOWED EVIDENCE OF CHOLECYSTITIS. SHE ALSO HAS HISTORY OF NEUROPATHY FOR SHE HAS BEEN PRESCRIBED LYRICA BY HER PRIMARY CARE PHYSICIAN.,NO DETAILED WORK UP OF PERIPHERAL NEUROPATHY HAS NOT BEEN DONE. SHE IS ON ALPRAZOLAM FOR ANXIETY DISORDER. PHYSICAL EXAMINATION. GENERAL- PATIENT WAS SOBBING DURING THIS INTERVIEW AND STATED THAT SHE WAS NOT DEPRESSED.HER GENERAL FUND OF KNOWLEDGE WAS NORMAL. HER CALCULATION AND JUDGEMENT WAS NORMAL. RECALL WAS 3/3 IN 3 MINUTES. ABSTRACTIVE THOUGHTS ARE NORMAL. HAS POOR ATTENTION AND CONCENTRATION. COULD NOT SPELL THE WORD 'WORLD' BACKWARD. HEART-NORMAL RATE AND RHYTHM. CAROTIDS- BOTH PALPABLE CRANIAL NERVES-ALL CRANIAL NERVES ARE WITH IN NORMAL, LIMIT MOTOR- NO ASYMMETRY OF STRENGTH BOTH DISTALLY OR PROXIMALLY IN UPPER OR LOWER EXTREMITIES. REFLEXES - GENERALIZED HYPO REFLEXIA WITH BILATERAL DOWN GOING TOES. SENSORY- DECREASED SENSATION TO PIN PRICK AND TOUCH ON BOTH FEET UPTO THE ANKLES. PROPRIOCEPTIVE SENSATION IS NORMAL. COORDINATION IS NORMAL. IMPRESSION. 1. ACUTE OUT BURST OF ANGER COULD BE DUE TO ANAEMIA INDUCED INSOMNIA WELL AGITATED DEPRESSION. 2. PERIPHERAL NEUROPATHY, CAUSE UNKNOWN. 3. ANXIETY DISORDER RECOMMEND. 1. PATIENT WILL BENEFIT FROM ANOTHER BLOOD TRANSFUSION, CORRECTION OF ANAEMIA WILL HAVE SIGNIFICANT IMPACT ON HER MOOD AND MEMORY. SHE DOES NOT ATKE IRON SUPPLEMENT SHE STATES THAT SHE CAN NOT TOLERATE IT. 2. PLEASE CHECK T4,TSH,VIT B12 LEVEL,SERUM HEAVY METAL SCREEN. 24 HR. URINE IMMUNO ELECTROPHORESIS 3. CONTINUE ALPRAZOLAM 0.25 MG PO QD 4. SEROQUEL 25 AT BED TIME FOR SLEEP 5. WILL NEED EMG/NCV OUT PATIENT AFTER DISCHARGE TO FIND OUT THE TYPE OF NEUROPATHY WHETHER DEMYELINATING OR AXONAL.
--- NOTE | 2019-07-12 15:34 | Consultation ---
Past History Past Medical History: anemia, other (NEUROPATHY,DIVERTICULITIS, ASTHMA, h/o pancreatitis, possible h/o Crohns disease) Past Surgical History: No surgical history Social history: no significant social history. denies: smoking, alcohol abuse (Did have alcoholism problem prior to 3 years ago), prescription drug abuse, IV drug use Family history: no significant family history Medications and Allergies Allergies Allergy/AdvReac Type Severity Reaction Status Date / Time No Known Allergies Allergy Verified 07/07/19 09:33 Home Medications Medication Instructions Recorded Confirmed Last Taken Type Ergocalciferol [Vitamin D2] 1 cap PO QWEEK 09/02/17 07/07/19 08/31/17 History ALPRAZolam [Xanax TAB] 0.25 mg PO DAILY #12 tablet 11/09/17 07/07/19 07/06/19 Rx Folic Acid [Folvite] 1 mg PO DAILY #30 tablet 11/09/17 07/07/19 Unknown Rx Multivitamin Tab W-MINERAL 1 each PO QDAY #30 tablet 11/09/17 07/07/19 Unknown Rx [Multiple Vitamin/Mineral (Theragran M)] oxyCODONE /ACETAMINOPHEN [Percocet 1 tab PO Q6H #12 tablet 11/09/17 07/07/19 Unknown Rx 5/325 mg] Ferrous Sulfate [Ferrous Sulfate 324 mg PO BID #30 tablet. 02/01/19 07/07/19 Unknown Rx 324 MG] Iron Carb,Gl/FA/B12/C/Docusate 1 each PO QDAY 30 Days #30 tablet 07/08/19 Unknown Rx [Ferralet 90 Dual-Iron Tablet] Pregabalin 25 mg PO TID capsule 07/08/19 Unknown Rx QUEtiapine [SEROquel] 50 mg PO QHS tablet 07/08/19 Unknown Rx medroxyPROGESTERone ACETATE 10 mg PO QDAY #5 tablet 07/08/19 Unknown Rx [Provera] oxyCODONE /ACETAMINOPHEN [Percocet 1 tab PO Q8H PRN #16 tablet 07/08/19 Unknown Rx 5/325 mg] oxyCODONE /ACETAMINOPHEN [Percocet 1 tab PO Q12H #12 tab 07/08/19 Unknown Rx 5/325] Active Meds: Active Medications Acetaminophen (Tylenol) 650 mg PO Q4H PRN PRN Reason: Fever >101 Hydromorphone HCl (Dilaudid) 0.5 mg IV Q4H PRN PRN Reason: Pain , Severe (7-10) Last Admin: 07/12/19 11:20 Dose: 0.5 mg Documented by: Metronidazole (Flagyl 500 Mg/100 Ml) 500 mg in 100 mls @ 100 mls/hr IV Q8HR SUE; Protocol Last Admin: 07/12/19 13:55 Dose: 100 mls/hr Documented by: Piperacillin Sod/Tazobactam Sod (Zosyn/Ns 4.5gm/100ml) 4.5 gm in 100 mls @ 200 mls/hr IV Q8HR [facility]UE; Protocol Last Admin: 07/12/19 14:29 Dose: 200 mls/hr Documented by: Ondansetron HCl (Zofran) 4 mg IV Q6H PRN PRN Reason: Nausea And Vomiting Last Admin: 07/12/19 14:29 Dose: 4 mg Documented by: Physical Examination - Vital Signs Vital Signs: Vital Signs Temp Pulse Resp BP Pulse Ox 98.8 F 121 H 18 151/94 100 07/12/19 01:17 07/12/19 01:17 07/12/19 01:17 07/12/19 01:17 07/12/19 01:17 Results - Laboratory Findings CBC and BMP: 07/12/19 01:55 07/12/19 14:07 Abnormal Lab Findings: Abnormal Labs 07/12/19 07/12/19 07/12/19 01:55 02:07 11:47 RBC 2.96 L Hgb 8.7 L Hct 25.9 L RDW 18.4 H Potassium 2.4 L* D Glucose 121 H POC Glucose 108 H Total Bilirubin 1.90 H AST 43 H Albumin 3.7 L 07/12/19 14:07 RBC Hgb Hct RDW Potassium 3.2 L D Glucose POC Glucose Total Bilirubin AST Albumin Assessment and Plan 70 YR OLD WITH HISTORY OF HYPERTENSION,COPD,CHF WHO IS A [facility] RESIDENT WHO INITIALLY CAME IN WITH BILATERAL COVID-19 PNEUMONIA FOR WHICH SHE IS BEING TREATED WAS FOUND CONFUSED. PATIENT IS ORIENTED TO SELF ONLY. REVIEW OF LAB SHOWS THAT HER WBC COUNT IS HIGH AT 21.7 AND NEUTROPHIL IS ALSO HIGH AT 85%, HER BUN IS ALSO ELEVATED AT 36 WITH NORMAL CREATININE INDICATING DEHYDRATION. PHYSICAL EXAMINATION- PATIENT IS ALERT AND WAKE.MAKES EYE CONTACT.GIVES THE SAME ANSWER TO ALL QUESTIONS, HAS SPONTANEOUS MOVEMENT OF EYES, PUPILS REACT TO LIGHT.HAS SPONTANEOUS BLINKING. HAS SPONTANEOUS MOVEMENTS OF EXTREMITIES.NO APPARENT ASYMMETRY OF REFLEXES WITH BILATERAL DOWN GOING TOES, SENSATION IS IS GROSSLY WITH IN NORMAL LIMIT. IMPRESSION. 1. TOXIC METABOLIC ENCEPHALOPATHY, NOT SEVERE RECOMMEND. 1. INITIATION OF ANTIBIOTICS, AND ADEQUATE HYDRATION 2. CONTINUE OTHER TREATMENT MODALITIES FOR COVID-19 PNEUMONIA
--- NOTE | 2019-07-12 16:28 | Event Note ---
Date: 07/12/19 This specific note belongs to a different patient, and should be deleted and ignored.
[2019-07-12] MEDS ORDERED: ALPRAZolam 0.25 MG TAB PO PRN (17:58)
--- NOTE | 2019-07-12 19:34 | Consultation ---
History of Present Illness Consult date: 07/12/19 Reason for consult: menorrhagia History of present illness: This is a 44-year-old female 3 para 2 who presents with a history of confusion. MARKETING AND DEVELOPMENT COORDINATOR is consulted at this time for history of vaginal bleeding. Patient was recently admitted on July 07, 2019 for anemia. At that time she had a hemoglobin of 6 and was given 2 to 3 units of packed red blood cells. Her hemoglobin increased to 8 and she was allowed home on Provera. This patient is a very poor historian. She states she has been bleeding heavily however unable to clearly convey how long she has been bleeding. On admission patient's hemoglobin was noted to be 8.7. She states she was given Provera during her previous admission and her bleeding resolved however she completed the Provera but is unsure when she took her last pill but shortly thereafter she started bleeding again heavily. Past History Past Medical History: other (See hospitalist admission note) Past Surgical History: MARKETING AND DEVELOPMENT COORDINATOR/uterine surgery (Essure placement approximately 8 years ago), D&C MARKETING AND DEVELOPMENT COORDINATOR History: herpes, other (Patient states her last Pap smear with was within a year ago and within normal limits). denies: abnormal PAP smear Social history: denies: smoking - Obstetrical History : 3 Para: 2 Hx # Term Pregnancies: 2 Spontaneous Abortions: 1 Number of Living Children: 2 (Vaginal delivery x2 without any complication) Medications and Allergies Allergies Allergy/AdvReac Type Severity Reaction Status Date / Time No Known Allergies Allergy Verified 07/07/19 09:33 Home Medications Medication Instructions Recorded Confirmed Last Taken Type Ergocalciferol [Vitamin D2] 1 cap PO QWEEK 09/02/17 07/07/19 08/31/17 History ALPRAZolam [Xanax TAB] 0.25 mg PO DAILY #12 tablet 11/09/17 07/07/19 07/06/19 Rx Folic Acid [Folvite] 1 mg PO DAILY #30 tablet 11/09/17 07/07/19 Unknown Rx Multivitamin Tab W-MINERAL 1 each PO QDAY #30 tablet 11/09/17 07/07/19 Unknown Rx [Multiple Vitamin/Mineral (Theragran M)] oxyCODONE /ACETAMINOPHEN [Percocet 1 tab PO Q6H #12 tablet 11/09/17 07/07/19 Unknown Rx 5/325 mg] Ferrous Sulfate [Ferrous Sulfate 324 mg PO BID #30 tablet. 02/01/19 07/07/19 Unknown Rx 324 MG] Iron Carb,Gl/FA/B12/C/Docusate 1 each PO QDAY 30 Days #30 tablet 07/08/19 Unknown Rx [Ferralet 90 Dual-Iron Tablet] Pregabalin 25 mg PO TID capsule 07/08/19 Unknown Rx QUEtiapine [SEROquel] 50 mg PO QHS tablet 07/08/19 Unknown Rx medroxyPROGESTERone ACETATE 10 mg PO QDAY #5 tablet 07/08/19 Unknown Rx [Provera] oxyCODONE /ACETAMINOPHEN [Percocet 1 tab PO Q8H PRN #16 tablet 07/08/19 Unknown Rx 5/325 mg] oxyCODONE /ACETAMINOPHEN [Percocet 1 tab PO Q12H #12 tab 07/08/19 Unknown Rx 5/325] Active Meds: Active Medications Acetaminophen (Tylenol) 650 mg PO Q4H PRN PRN Reason: Fever >101 Last Admin: 07/12/19 15:35 Dose: 650 mg Documented by: Alprazolam (Xanax) 0.25 mg PO BID PRN PRN Reason: Anxiety Folic Acid (Folvite) 1 mg PO DAILY SUE Hydromorphone HCl (Dilaudid) 0.5 mg IV Q4H PRN PRN Reason: Pain , Severe (7-10) Last Admin: 07/12/19 11:20 Dose: 0.5 mg Documented by: Metronidazole (Flagyl 500 Mg/100 Ml) 500 mg in 100 mls @ 100 mls/hr IV Q8HR [facility]; Protocol Last Admin: 07/12/19 13:55 Dose: 100 mls/hr Documented by: Piperacillin Sod/Tazobactam Sod (Zosyn/Ns 4.5gm/100ml) 4.5 gm in 100 mls @ 200 mls/hr IV Q8HR [facility]; Protocol Last Admin: 07/12/19 14:29 Dose: 200 mls/hr Documented by: Medroxyprogesterone Acetate (Provera) 10 mg PO QDAY SUE Ondansetron HCl (Zofran) 4 mg IV Q6H PRN PRN Reason: Nausea And Vomiting Last Admin: 07/12/19 14:29 Dose: 4 mg Documented by: Oxycodone/Acetaminophen (Percocet 5/325) 1 tab PO Q8H PRN PRN Reason: Pain, Moderate (4-6) Pregabalin (Pregabalin) 25 mg PO TID SUE Quetiapine Fumarate (Seroquel) 50 mg PO QHS SUE Review of Systems All systems: negative Genitourinary: vaginal bleeding - Vital Signs Vital signs: Vital Signs Temp Pulse Resp BP Pulse Ox 98.8 F 121 H 18 151/94 100 07/12/19 01:17 07/12/19 01:17 07/12/19 01:17 07/12/19 01:17 07/12/19 01:17 Temp Pulse Resp BP Pulse Ox 98.6 F 79 19 116/62 99 07/12/19 14:30 07/12/19 14:30 07/12/19 14:30 07/12/19 14:30 07/12/19 14:30 - Physical Exam Breasts: Positive: deferred Genitourinary (Female): Positive: normal external genitalia, normal perenium Vulva: both: normal Vagina: Positive: other (No blood in the vagina. Patient had brownish discharge on her pad. Pad was changed approximately 2 hours prior to exam.) Uterus: Positive: normal size, normal contour. Negative: enlarged Adnexa: both: normal Extremities: Positive: normal Results Result Diagrams: 07/12/19 01:55 07/12/19 14:07 Abnormal lab results 07/12/19 07/12/19 07/12/19 Range/Units 01:55 02:07 11:47 RBC 2.96 L (3.65-5.03) M/mm3 Hgb 8.7 L (10.1-14.3) gm/dl Hct 25.9 L (30.3-42.9) % RDW 18.4 H (13.2-15.2) % Potassium 2.4 L* D (3.6-5.0) mmol/L Glucose 121 H (65-100) mg/dL POC Glucose 108 H (70-105) Total Bilirubin 1.90 H (0.1-1.2) mg/dL AST 43 H (5-40) units/L Albumin 3.7 L (3.9-5) g/dL 07/12/19 Range/Units 14:07 RBC (3.65-5.03) M/mm3 Hgb (10.1-14.3) gm/dl Hct (30.3-42.9) % RDW (13.2-15.2) % Potassium 3.2 L D (3.6-5.0) mmol/L Glucose (65-100) mg/dL POC Glucose (70-105) Total Bilirubin (0.1-1.2) mg/dL AST (5-40) units/L Albumin (3.9-5) g/dL All other labs normal. Assessment and Plan - Patient Problems (1) Anemia Current Visit: Yes Status: Acute Qualifiers: Anemia type: unspecified type Qualified Code(s): D64.9 - Anemia, unspecified Plan to address problem: Recommend starting iron if she has no contraindications. (2) Vaginal bleeding Current Visit: Yes Status: Acute Plan to address problem: No bleeding at this time. Probable perimenopausal bleeding. She has an appt scheduled for July 18, 2019 in our [place] office. Consider restarting Provera daily to bid if heavy bleeding recurs. Will sing off at this time. Please don't hesitate to call if bleeding recurs
[2019-07-12] MEDS: PREGABALIN 25 MG CAP PO SCH (20:31)
[2019-07-12] MEDS: QUEtiapine 25 MG TAB PO SCH (22:17)
[2019-07-13] MEDS: oxyCODONE /ACETAMINOPHEN 5-325MG TAB PO PRN ×2 (00:04→21:44)
[2019-07-13 05:07] LABS: Basophils % (Auto) 0.9 % (0.0-1.8); Eosinophils # (Auto) 0.1 K/mm3 (0.0-0.4); Eosinophils % (Auto) 3.6 % (0.0-4.3); Lymphocytes # (Auto) 1.2 K/mm3 (1.2-5.4); Lymphocytes % (Auto) 41.1 % (13.4-35.0); Mean Corpuscular HGB Conc 33 % (30-34); Mean Corpuscular Volume 88 fl (79-97); Monocytes # (Auto) 0.2 K/mm3 (0.0-0.8); Monocytes % (Auto) 6.4 % (0.0-7.3); Red Blood Count 2.14 M/mm3 (3.65-5.03); Red Cell Distribution Width 18.1 % (13.2-15.2)
[2019-07-13 05:14] LABS: Hematocrit 18.8 % (30.3-42.9); Hemoglobin 6.1 gm/dl (10.1-14.3); Platelet Count 69 K/mm3 (140-440)
[2019-07-13 05:23] LABS: BUN/Creatinine Ratio 14; Blood Urea Nitrogen 11 mg/dL (7-17); Calcium 7.9 mg/dL (8.4-10.2); Hemolysis Index 1
[2019-07-13] MEDS ORDERED: SODIUM CHLORIDE 0.9% 500 ML 500 ML IV ONE ×2 (05:44→09:00)
[2019-07-13] MEDS: PIPERACIL/TAZOBACTA 4.5/NS 100 4.5 GM/100 ML VIAL IV SCH (05:57)
[2019-07-13] MEDS: metroNIDAZOLE/NS 500 MG/100 ML 500 MG/100 ML BAG IV SCH (05:57)
--- NOTE | 2019-07-13 08:11 | Progress Note ---
Assessment and Plan Assessment and plan: 44-year-old female patient recently from her , undergoing a lot of stress was admitted through emergency room with altered level of consciousness and vaginal bleeding.Patient was evaluated by neurology, and TENDER LABOR Patient's mental status back to baseline, today H&H dropped from 8.7-6.1, a dvised 2 units of PRBC --History of recurrent vaginal bleeding/menorrhagia Current Visit: Yes Status: Acute Has been evaluated by TENDER LABOR in the past Patient reports she was advised hysterectomy TENDER LABOR evaluated yesterday increase Provera to 10 mg p.o. twice daily --Acute blood loss anemia; Hb 6.1 [8.7-6.1], type and cross Transfuse 2 units of PRBC today h/o Vaginal bleeding --Possible acute cholecystitis on CT[acute cholecystitis ruled out] Current Visit: Yes Status: Acute Surgery evaluate the patient, no evidence of acute cholecystitis. Advised to continue regular diet --Symptomatic anemia Current Visit: Yes Status: Acute With altered level of consciousness , resolved secondary to TENDER LABOR bleeding Type and cross transfuse 2 units of PRBC --Metabolic encephalopathy ; present on admission Current Visit: Yes Status: Acute Probably secondary to symptomatic anemia Resolved, neurology evaluated --Hematuria Current Visit: Yes Status: Acute History of history of bilateral nephrolithiasis Resolved --Severe hypokalemia; present on admission Current Visit: Yes Status: Acute Replenished with KCl, check magnesium Follow electrolytes --DVT prophylaxis: SCDs, pharmacologic anticoagulation in view of bleeding and anemia Monitor closely and adjust management as needed Plan of care reviewed with the patient and her nurse Disposition; follow H&H, follow symptoms of vaginal bleeding If significantly improved, may be discharged home 1 to 2 days History Interval history: Patient seen and examined at bedside this morning Patient's chart, test reports, overnight events reviewed Patient was admitted with vaginal bleeding, evaluated by TENDER LABOR Today hemoglobin was 6.1 dropped significantly from yesterday Patient complains of generalized weakness and dizziness Vital signs reviewed Hospitalist Physical - Constitutional Vitals: Temp Pulse Resp BP Pulse Ox 97.6 F 84 20 102/62 98 07/13/19 01:46 07/13/19 02:54 07/13/19 01:46 07/13/19 01:46 07/13/19 08:01 General appearance: Present: mild distress, well-nourished, disheveled - EENT Eyes: Present: PERRL, EOM intact - Neck Neck: Present: supple, normal ROM - Respiratory Respiratory effort: normal Respiratory: bilateral: diminished, negative: rales, rhonchi, wheezing - Cardiovascular Rhythm: regular Heart Sounds: Present: S1 & S2 - Extremities Extremities: no ischemia, No edema - Abdominal General gastrointestinal: soft, non-tender, non-distended, normal bowel sounds - Integumentary Integumentary: Present: clear, warm, pale - Psychiatric Psychiatric: appropriate mood/affect, cooperative - Neurologic Neurologic: moves all extremities KSENIA score - Ksenia Score Age > 65: (0) No Aspirin use within the Past 7 Days: (0) No 3 or more CAD Risk Factors: (0) No 2 or more Angina events in past 24 hrs: (0) No Known CAD with more than 50% Stenosis: (0) No Elevated Cardiac Markers: (0) No ST Deviation Greater than 0.5mm: (0) No KSENIA Score: 0 Results - Labs CBC & Chem 7: 07/13/19 18:55 07/13/19 04:08 Labs: Laboratory Last Values WBC 2.8 K/mm3 (4.5-11.0) L 07/13/19 04:08 RBC 2.14 M/mm3 (3.65-5.03) L 07/13/19 04:08 Hgb 6.1 gm/dl (10.1-14.3) L 07/13/19 04:08 Hct 18.8 % (30.3-42.9) L* D 07/13/19 04:08 MCV 88 fl (79-97) 07/13/19 04:08 MCH 29 pg (28-32) 07/13/19 04:08 MCHC 33 % (30-34) 07/13/19 04:08 RDW 18.1 % (13.2-15.2) H 07/13/19 04:08 Plt Count 69 K/mm3 (140-440) L 07/13/19 04:08 Lymph % (Auto) 41.1 % (13.4-35.0) H 07/13/19 04:08 Drew % (Auto) 6.4 % (0.0-7.3) 07/13/19 04:08 Eos % (Auto) 3.6 % (0.0-4.3) 07/13/19 04:08 Baso % (Auto) 0.9 % (0.0-1.8) 07/13/19 04:08 Lymph # 1.2 K/mm3 (1.2-5.4) 07/13/19 04:08 Drew # 0.2 K/mm3 (0.0-0.8) 07/13/19 04:08 Eos # 0.1 K/mm3 (0.0-0.4) 07/13/19 04:08 Baso # 0.0 K/mm3 (0.0-0.1) 07/13/19 04:08 Seg Neutrophils % 48.0 % (40.0-70.0) 07/13/19 04:08 Seg Neutrophils # 1.3 K/mm3 (1.8-7.7) L 07/13/19 04:08 Sodium 142 mmol/L (137-145) 07/13/19 04:08 Potassium 3.2 mmol/L (3.6-5.0) L 07/13/19 04:08 Chloride 110.0 mmol/L (98-107) H 07/13/19 04:08 Carbon Dioxide 22 mmol/L (22-30) 07/13/19 04:08 Anion Gap 13 mmol/L 07/13/19 04:08 BUN 11 mg/dL (7-17) 07/13/19 04:08 Creatinine 0.8 mg/dL (0.7-1.2) 07/13/19 04:08 Estimated GFR > 60 ml/min 07/13/19 04:08 BUN/Creatinine Ratio 14 % 07/13/19 04:08 Glucose 107 mg/dL (65-100) H 07/13/19 04:08 POC Glucose 108 (70-105) H 07/12/19 11:47 Calcium 7.9 mg/dL (8.4-10.2) L 07/13/19 04:08 Magnesium 1.70 mg/dL (1.7-2.3) 07/12/19 14:07 Total Bilirubin 1.90 mg/dL (0.1-1.2) H 07/12/19 02:07 AST 43 units/L (5-40) H 07/12/19 02:07 ALT 21 units/L (7-56) 07/12/19 02:07 Alkaline Phosphatase 49 units/L (35-129) 07/12/19 02:07 Total Protein 6.4 g/dL (6.3-8.2) D 07/12/19 02:07 Albumin 3.7 g/dL (3.9-5) L 07/12/19 02:07 Albumin/Globulin Ratio 1.4 % 07/12/19 02:07 HCG, Qual Negative (Negative) 07/12/19 01:55 Urine Color Yellow (Yellow) 07/12/19 02:17 Urine Turbidity Slightly-cloudy (Clear) 07/12/19 02:17 Urine pH 6.0 (5.0-7.0) 07/12/19 02:17 Ur Specific [place] 1.006 (1.003-1.030) 07/12/19 02:17 Urine Protein <15 mg/dl mg/dL (Negative) 07/12/19 02:17 Urine Glucose (UA) Neg mg/dL (Negative) 07/12/19 02:17 Urine Ketones Neg mg/dL (Negative) 07/12/19 02:17 Urine Blood Lg (Negative) 07/12/19 02:17 Urine Nitrite Neg (Negative) 07/12/19 02:17 Urine Bilirubin Neg (Negative) 07/12/19 02:17 Urine Urobilinogen < 2.0 mg/dL (<2.0) 07/12/19 02:17 Ur Leukocyte Esterase Neg (Negative) 07/12/19 02:17 Urine WBC (Auto) 3.0 /HPF (0.0-6.0) 07/12/19 02:17 Urine RBC (Auto) > 182.0 /HPF (0.0-6.0) 07/12/19 02:17 Urine Mucus Few /HPF 07/12/19 02:17 Influenza A (Rapid) Negative (Negative) 07/12/19 03:20 Influenza B (Rapid) Negative (Negative) 07/12/19 03:20 Group A Strep Rapid Negative (Negative) 07/12/19 03:20 Blood Type A POSITIVE 07/13/19 06:06 Antibody Screen Negative 07/13/19 06:06 Crossmatch See Detail 07/13/19 06:06 Payne/IV: Voiding Method Toilet IV Catheter Type [Right Hand] INT / Saline Lock IV Catheter Type [Left Forearm INT / Saline Lock ] Active Medications - Current Medications Current Medications: Generic Name Dose Route Start Last Admin Trade Name Freq PRN Reason Stop Dose Admin Acetaminophen 650 mg 07/12/19 05:27 07/12/19 15:35 Tylenol PO 650 mg Q4H PRN Administration Fever >101 Alprazolam 0.25 mg 07/12/19 17:58 Xanax PO BID PRN Anxiety Folic Acid 1 mg 07/13/19 10:00 Folvite PO DAILY SUE Hydromorphone HCl 0.5 mg 07/12/19 05:21 07/12/19 11:20 Dilaudid IV 0.5 mg Q4H PRN Administration Pain , Severe (7-10) Metronidazole 500 mg in 100 mls @ 100 mls/hr 07/12/19 06:00 07/13/19 05:57 Flagyl 500 Mg/100 Ml IV 100 mls/hr Q8HR SUE Administration Protocol Piperacillin Sod/Tazobactam Sod 4.5 gm in 100 mls @ 200 mls/hr 07/12/19 06:00 07/13/19 05:57 Zosyn/Ns 4.5gm/100ml IV 200 mls/hr Q8HR SUE Administration Protocol Medroxyprogesterone Acetate 10 mg 07/13/19 10:00 Provera PO QDAY SUE Ondansetron HCl 4 mg 07/12/19 05:22 07/12/19 14:29 Zofran IV 4 mg Q6H PRN Administration Nausea And Vomiting Oxycodone/Acetaminophen 1 tab 07/12/19 17:08 07/13/19 00:04 Percocet 5/325 PO 1 tab Q8H PRN Administration Pain, Moderate (4-6) Potassium Chloride 40 meq 07/13/19 09:00 K-Dur PO 07/13/19 09:01 ONCE ONE Pregabalin 25 mg 07/12/19 20:00 07/12/19 20:31 Pregabalin PO 25 mg TID SUE Administration Quetiapine Fumarate 50 mg 07/12/19 22:00 07/12/19 22:17 Seroquel PO 50 mg QHS SUE Administration
[2019-07-13] MEDS: PREGABALIN 25 MG CAP PO SCH ×3 (08:30→21:21)
[2019-07-13] MEDS: FOLIC ACID 1 MG TAB PO SCH ×2 (08:30→10:00)
[2019-07-13] MEDS: medroxyPROGESTERone ACETATE 5 MG TAB PO SCH ×3 (08:30→21:21)
[2019-07-13] MEDS ORDERED: POTASSIUM CHLORIDE ER 20 MEQ TAB PO ONE (09:00)
[2019-07-13] MEDS ORDERED: ALPRAZolam 0.25 MG TAB PO SCH (10:00)
[2019-07-13] MEDS ORDERED: medroxyPROGESTERone ACETATE 5 MG TAB PO SCH (10:00)
[2019-07-13 19:59] LABS: Hematocrit 25.9 % (30.3-42.9); Hemoglobin 8.5 gm/dl (10.1-14.3)
[2019-07-13] MEDS: QUEtiapine 25 MG TAB PO SCH (21:21)
[2019-07-14 05:37] LABS: Hematocrit 25.7 % (30.3-42.9); Hemoglobin 8.5 gm/dl (10.1-14.3)
--- NOTE | 2019-07-14 07:34 | Discharge Summary ---
Providers - Providers Date of Admission: 07/12/19 06:52 Date of discharge: 07/14/19 Attending physician: NASH DENNIS 07/12/19 04:26 Consult to Physician [CONS] Routine Comment: Consulting Provider: MATTHEW FLORES Physician Instructions: Reason For Exam: acute autumn 07/12/19 05:14 Consult to Physician [CONS] Routine Comment: Consulting Provider: ALYSHA BAEZA Physician Instructions: Reason For Exam: altered mental status 07/12/19 17:38 Consult to Physician [CONS] Routine Comment: Consulting Provider: ROBERTO WASHINGTON Physician Instructions: Reason For Exam: vaginal bleed Primary care physician: HOANG DIAMOND Hospitalization Reason for admission: abla Condition: Critical Hospital course: This is a 44-year-old female 3 para 2 who presents with a history of confusion. CARE COORDINATOR is consulted at this time for history of vaginal bleeding. Patient was recently admitted on July 07, 2019 for anemia. At that time she had a hemoglobin of 6 and was given 2 to 3 units of packed red blood cells. Her hemoglobin increased to 8 and she was allowed home on Provera. This patient is a very poor historian. She states she has been bleeding heavily however unable to clearly convey how long she has been bleeding. On admission patient's hemoglobin was noted to be 8.7. She states she was given Provera during her previous admission and her bleeding resolved however she completed the Provera but is unsure when she took her last pill but shortly thereafter she started bleeding again heavily. During her work-up a CT scan of the abdomen was performed. There was suggestion of acute cholecystitis. Therefore, general surgery was consulted. HIDA scan clearly showed there is no evidence of acute cholecystitis. Clinically patient does not have symptoms or signs consistent with cholecystitis. Abnormal LFTs could be attributed to her hepatomegaly secondary to her old alcoholism history. At this point, surgery did not recommend cholecystectomy during this admission or even as an outpatient. She does not have signs and symptoms consistent with acute cholecystitis or biliary dyskinesia. CARE COORDINATOR also saw the patient in consultation and felt that patient likely had perimenopausal bleeding. Continue Provera twice daily. Patient with a scheduled appointment for July 18, 2019. Neurology also saw the patient in consultation for metabolic encephalopathy felt to be induced by the anemia. Encephalopathy has resolved patient is felt to have received maximal hospital benefit and will be discharged home. Dedicated discharge time 32 minutes Disposition: [id number] TO HOME OR SELFCARE Time spent for discharge: 32 - Discharge Diagnoses (1) Perimenopausal menorrhagia Status: Acute (2) Metabolic encephalopathy Status: Acute (3) Abdominal pain Status: Acute Qualifiers: Abdominal location: lower abdomen, unspecified Qualified Code(s): R10.30 - Lower abdominal pain, unspecified (4) Acute cholecystitis Status: Acute (5) Anemia Status: Acute Qualifiers: Anemia type: unspecified type Qualified Code(s): D64.9 - Anemia, unspecified (6) Confusion Status: Acute (7) Severe anemia Status: Acute Core Measure Documentation - Palliative Care Palliative Care/ Comfort Measures: Not Applicable - Core Measures Any of the following diagnoses?: none Exam - Constitutional Vitals: Temp Pulse Resp BP Pulse Ox 98.7 F 75 20 110/67 99 07/14/19 03:04 07/14/19 03:39 07/14/19 03:04 07/14/19 03:04 07/14/19 03:39 General appearance: Present: no acute distress, well-nourished - EENT Eyes: Present: PERRL ENT: hearing intact, clear oral mucosa - Neck Neck: Present: supple, normal ROM - Respiratory Respiratory effort: normal Respiratory: bilateral: CTA - Cardiovascular Heart Sounds: Present: S1 & S2. Absent: rub, click - Extremities Extremities: pulses symmetrical, No edema Peripheral Pulses: within normal limits - Abdominal General gastrointestinal: Present: soft, non-tender, non-distended, normal bowel sounds Female genitourinary: Present: normal - Integumentary Integumentary: Present: clear, warm, dry - Musculoskeletal Musculoskeletal: gait normal, strength equal bilaterally - Psychiatric Psychiatric: appropriate mood/affect, intact judgment & insight - Neurologic Neurologic: CNII-XII intact, moves all extremities Plan Activity: advance as tolerated Weight Bearing Status: Weight Bear as Tolerated Diet: regular Follow up with: MINDY LOWE NP [Advanced Practice Nurse] - 07/18/19 3:30 pm ([place] office) HOANG DIAMOND MD [Primary Care Provider] - 3-5 Days Prescriptions: Ferrous Sulfate [Ferrous Sulfate 324 MG] 324 mg PO BID #30 tablet. Folic Acid [Folvite] 1 mg PO DAILY #30 tablet oxyCODONE /ACETAMINOPHEN [Percocet 5/325 mg] 1 tab PO Q8H PRN #16 tablet PRN Reason: Pain, Moderate (4-6) Pregabalin 25 mg PO TID #90 capsule medroxyPROGESTERone ACETATE [Provera] 10 mg PO BID #10 tablet QUEtiapine [SEROquel] 50 mg PO QHS #30 tablet ALPRAZolam [Xanax TAB] 0.25 mg PO DAILY #12 tablet
[2019-07-14 08:38] VITALS: BP 126/79
== END 2019-07-14 10:21 | disposition home or self-care (01) | DRG 444 ==
LOC: ED 01:08 → 2B-ACE 06:52
PROVIDERS: ADMIT Internal Medicine; ATTEND Hospitalist
PROC: 30233N1 Transfusion of Nonautologous Red Blood Cells into Peripheral Vein, Percutaneous Approach (ICD-10-PCS; principal; 2019-07-13)
DX: K81.0 Acute cholecystitis (principal); G93.41 Metabolic encephalopathy; D62 Acute posthemorrhagic anemia; K50.90 Crohn's disease, unspecified, without complications; N95.0 Postmenopausal bleeding; E87.6 Hypokalemia; J45.909 Unspecified asthma, uncomplicated; R31.0 Gross hematuria
CPT/HCPCS: 36415; 70450; 71045; 74176; 78226; 80048; 80053; 81001; 82962; 83735; 84132; 84703; 85014; 85018; 85025; 86850; 86900; 86901; 86920; 87116; 87400; 87430; G0378; A9537; J1170; J2405; J2543; J3480; J7030; J7040; P9016

== ENCOUNTER 2019-08-09 08:08 | Outpatient (CLI) | payer BC ==
--- NOTE | 2019-08-09 13:05 | Nuclear Medicine Report ---
HEPATOBILIARY SCINTIGRAPHY (HIDA) WITHOUT CHOLECYSTOKININ HISTORY: Right upper quadrant pain. COMPARISON: 07/12/2019 TECHNIQUE: Radiopharmaceutical was administered intravenously. Sequential imaging of the upper abdom en was performed up to 2 2 hours. Cholecystokinin was not given. FINDINGS: Liver: No significant abnormality. Gallbladder: Normally visualization of the gallbladder and proximal common bile duct with no signific ant abnormality. However, no emptying of the gallbladder at 2 hours. Small bowel: No visualization of small bowel up to 2 hours. IMPRESSION: 1. No acute cholecystitis. 2. Failure of gallbladder emptying and failure of small bowel activity visualization at 2 hours is a nonspecific finding with differential including gallbladder dyskinesis, chronic cholecystitis, acalcu lous cholecystitis, sphincter of Domenic dyskinesis and partial biliary obstruction (stricture). These f indings are unchanged since the previous exam. Signer Name: Rohan Waller MD Signed: 08/09/2019 1:00 PM Workstation Name: [id number]
== END 2019-08-09 08:09 | disposition home or self-care (01) ==
LOC: NM 08:08
PROVIDERS: ATTEND Internal Medicine Gastroenterology
DX: K82.8 Other specified diseases of gallbladder (principal); K76.9 Liver disease, unspecified; K81.9 Cholecystitis, unspecified; D50.0 Iron deficiency anemia secondary to blood loss (chronic)
CPT/HCPCS: 78226; A9537